=== PATIENT | male | born 1955 | race Caucasian/White ===

== ENCOUNTER → 2018-10-31 | Day surgery (SDC) | payer BC ==
[2018-10-15 11:33] LABS: BASOPHILS % 0.4 % (0.0-1.0); EOSINOPHILS # (AUTO) 0.2 (0.0-0.4); EOSINOPHILS % 2.6 % (0.0-6.0); HEMATOCRIT 42.6 % (38.2-49.6); HEMOGLOBIN 14.2 g/dL (14.0-18.0); LYMPHOCYTES # (AUTO) 1.3 (1.0-3.2); LYMPHOCYTES % 13.8 % (18.0-39.1); MEAN CORPUSCULAR HEMOGLOBIN 29.8 pg (28-32); MEAN CORPUSCULAR HGB CONC 33.3 g/dL (31-35); MEAN CORPUSCULAR VOLUME 89.5 fL (81-99); MONOCYTES # (AUTO) 0.9 (0.2-0.8); MONOCYTES % 9.7 % (4.4-11.3); NEUTROPHILS # (AUTO) 6.7 (2.1-6.9); PLATELET COUNT 237 x10e3/uL (140-360); RED BLOOD COUNT 4.76 x10e6/uL (4.3-5.7); RED CELL DISTRIBUTION WIDTH 12.5 % (11.7-14.4)
[2018-10-15 12:04] LABS: ANION GAP 15.3 mmol/L (8-16); BLOOD UREA NITROGEN 18 mg/dL (7-26); BUN/CREATININE RATIO 23 (6-25); CALCIUM 9.5 mg/dL (8.4-10.2); CARBON DIOXIDE 22 mmol/L (22-29); CHLORIDE 101 mmol/L (98-107); EST GLOMERULAR FILTRATION RATE > 60 ML/MIN (60-); GLUCOSE 96 mg/dL (74-118); POTASSIUM 4.3 mmol/L (3.5-5.1); SODIUM 134 mmol/L (136-145)
--- NOTE | 2018-10-15 12:25 | Diagnostic Imaging Report ---
EXAMINATION: CHEST 2 VIEWS INDICATION: Pre-operative COMPARISON: None FINDINGS: TUBES and LINES: Metallic surgical clips overlie the heart. LUNGS: The lungs are mildly hyperinflated. No focal consolidation or pulmonary edema. PLEURA: No pleural effusion or pneumothorax. HEART AND MEDIASTINUM: The cardiomediastinal silhouette is normal in size and contour. BONES AND SOFT TISSUES: No acute fracture or dislocation. Mild degenerative changes of the visualized spine. UPPER ABDOMEN: No free air under the diaphragm. IMPRESSION: No focal pneumonia or pulmonary edema. Signed by: Adonis Valero MD on 10/15/2018 12:22 PM
[~2018-10-31] MED LIST: ACETAMINOPHEN 1000 MG/100 ML IV ONE; ASPIR 8181 MG PO; ATORVASTATIN CA40 MG PO; BUPIVACAINE 0.25%/EPI 30ML SDV INJ ONE; CARVEDILOL12.5 MG PO; CLOPIDOGREL75 MG PO; DESFLURANE 240 ML BTL INH ONE; DEXAMETHASONE SOD PHOS INJ 4 MG/ML VIAL ONE; EPHEDRINE SULFATE INJ 50 MG/10 ML SYR ONE; ETOMIDATE 2 MG/ML 10 ML INJ IV ONE; FENTANYL CITRATE/PF 100MCG/2 ML INJ ONE; FUROSEMIDE40 MG PO; GLYCOPYRROLATE INJ 1MG/ 5 ML SYR ONE; HYDROMORPHONE 1MG/1ML INJ ONE; KETOROLAC TROMETHAMINE 30 MG/ML VIAL ONE; LEVOTHYROXINE112 MCG PO; LEVOTHYROXINE125 MCG PO; LIDOCAINE HCL 1% LOCAL INJ 20 ML VIAL ONE; LIDOCAINE HCL 2% LOCAL INJ 5 ML SDV VIAL INJ ONE; LISINOPRIL2.5 MG PO; MIDAZOLAM HCL 2 MG/2 ML VIAL ONE; NEOSTIGMINE 5 MG/5ML SYR ONE; ONDANSETRON HCL INJ 2MG/ML 2ML 2 MG/ML VIAL ONE; POTASSIUM CHLO10 ME1 PO; PROPOFOL IV EMULSION 10 MG/ML 20 ML VIAL ONE; ROCURONIUM BROMIDE 10 MG/ML 5ML VIAL ONE; SPIRONOLACTONE25 MG PO
--- OUTSIDE RECORDS SUMMARY | 2018-10-31 06:03 | XMS REPORT | Continuity of Care Document ---
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, HEART VALVE REPAIRED Active 06/05/2014 [facility] CHEST PAIN Active 05/18/2014 [facility] PLEURAL EFFUSION, CHF Active 05/18/2014 [facility] Chronic CHF Resolved Problem 11/08/2014 [facility] HTN (Confirmed) Resolved Problem 11/08/2014 [facility] Hyperlipidemia Resolved Problem 11/08/2014 [facility] Lymphoma Resolved Problem 11/08/2014 [facility] Final: 07/01/2014 [facility] PLEURAL EFFUSION NOS Active [facility] CHF NOS Active [facility] Medications Medication Details Route Status Patient Instructions Ordering Provider Order Date Source levothyroxine 125 mcg (0.125 mg) oral tablet 125 microgram=1 tab, PO, Daily, # 60 tab, 1 Refill(s) Active 06/29/2014 [facility] atorvastatin 40 mg oral tablet 40 mg=1 tab, PO, Bedtime, # 60 tab, 3 Refill(s) Active 06/29/2014 [facility] Aspirin 81 MG Enteric Coated Tablet 81 mg=1 tab, PO, Daily, # 120 tab, 2 Refill(s) Active 06/29/2014 [facility] lisinopril 2.5 mg oral tablet 2.5 mg=1 tab, PO, Q12H, # 60 tab, 0 Refill(s) Active 06/29/2014 [facility] Furosemide 40 MG Oral Tablet [Lasix] 40 mg=1 tab, PO, Daily, # 30 tab, 0 Refill(s) Active 06/29/2014 [facility] clopidogrel 75 mg oral tablet 75 mg=1 tab, PO, Daily, # 30 tab, 0 Refill(s) Active 06/29/2014 [facility] carvedilol 12.5 mg oral tablet 12.5 mg=1 tab, PO, Q12H, # 60 tab, 0 Refill(s) Active 06/29/2014 [facility] levothyroxine 125 mcg (0.125 mg) oral tablet 125 microgram=1 tab, PO, Daily, # 60 tab, 1 Refill(s) Inactive 06/29/2014 [facility] atorvastatin 40 mg oral tablet 40 mg=1 tab, PO, Bedtime, # 60 tab, 3 Refill(s) Inactive 06/29/2014 [facility] Aspirin 81 MG Enteric Coated Tablet 81 mg=1 tab, PO, Daily, # 120 tab, 2 Refill(s) Inactive 06/29/2014 [facility] Furosemide 40 MG Oral Tablet [Lasix] 40 mg=1 tab, PO, Daily, # 30 tab, 0 Refill(s) Inactive 06/29/2014 [facility] clopidogrel 75 mg oral tablet 75 mg=1 tab, PO, Daily, # 30 tab, 0 Refill(s) Inactive 06/29/2014 [facility] carvedilol 12.5 mg oral tablet 12.5 mg=1 tab, PO, Q12H, # 90 tab, 1 Refill(s) Inactive 06/29/2014 [facility] spironolactone 25 mg oral tablet 25 mg=1 tab, PO, Daily, # 30 tab, 0 Refill(s) Active 06/29/2014 [facility] lisinopril 2.5 mg oral tablet 2.5 mg=1 tab, PO, Q12H, # 60 tab, 0 Refill(s) Inactive 06/29/2014 [facility] Magnesium Sulfate 2 gm, 50 mL, Route: IVPB, Drug form: INJ, ONCE, Dosing Weight 104.091, kg, Total dose=2 gm, Start date: 06/29/14 6:36:00, Duration: 1 doses or times, Stop date: 06/29/14 6:36:00 Inactive 06/29/2014 [facility] Coreg 12.5 mg, 1 tab, Route: PO, Drug form: TAB, Q12H, Dosing Weight 104.091, kg, Start date: 06/27/14 21:00:00, Duration: 30 day, Stop date: 07/27/14 9:00:00Notes: Give with food. (Same As: Coreg) No Longer Active 06/28/2014 [facility] Lisinopril 2.5 mg, 1 tab, Route: PO, Drug form: TAB, Q12H, Dosing Weight 104.091, kg, Start date: 06/27/14 21:00:00, Duration: 30 day, Stop date: 07/27/14 9:00:00Notes: (Same as: Prinivil) No Longer Active 06/28/2014 [facility] Furosemide 40 MG Oral Tablet [Lasix] 40 mg, 1 tab, Route: PO, Drug form: TAB, Daily, Dosing Weight 104.091, kg, Start date: 06/27/14 9:00:00, Duration: 30 day, Stop date: 07/26/14 9:00:00Notes: (Same as: Lasix) May cause GI upset. Give with food or milk. No Longer Active 06/27/2014 [facility] Magnesium Sulfate 2 gm, Route: IVPB, Drug form: INJ, Q2H, Dosing Weight 104.091, kg, Total dose=4 gm, Start date: 06/27/14 6:00:00, Duration: 2 doses or times, Stop date: 06/27/14 8:00:00 Inactive 06/27/2014 [facility] Coreg 6.25 mg, 1 tab, Route: PO, Drug form: TAB, Q12H, Dosing Weight 104.091, kg, Start date: 06/26/14 9:47:00, Stop date: 07/26/14 9:00:00Notes: Give with food. (Same As: Coreg) No Longer Active 06/26/2014 [facility] Spironolactone 25 mg, 1 tab, Route: PO, Drug form: TAB, Daily, Dosing Weight 104.091, kg, Start date: 06/26/14 9:00:00, Duration: 30 day, Stop date: 07/25/14 9:00:00Notes: (Same As: Aldactone) No Longer Active 06/26/2014 [facility] Calcium Gluconate 500 MG Oral Tablet 500 mg, 1 tab, Route: PO, Drug form: TAB, ONCE, Dosing Weight 104.091, kg, Start date: 06/26/14 7:11:00, Stop date: 06/26/14 7:11:00 Inactive 06/26/2014 [facility] Magnesium Oxide 400 mg, 1 tab, Route: PO, Drug form: TAB, ONCE, Dosing Weight 104.091, kg, Start date: 06/26/14 6:34:00, Stop date: 06/26/14 6:34:00Notes: (Same as: Mag-Ox 400) Magnesium oxide [id number] elemental magnesium Dose=____mg magnesium oxide (___mg elemental magnesium) Inactive 06/26/2014 [facility] Potassium Chloride 20 MEQ Extended Release Tablet 20 mEq, 1 tab, Route: PO, Drug form: ERTAB, ONCE, Dosing Weight 104.091, kg, Start date: 06/26/14 6:34:00, Stop date: 06/26/14 6:34:00Notes: (Same as: K-Dur 20) "Do Not Crush" With food and full glass of water Inactive 06/26/2014 [facility] Lasix 40 mg, Route: PO, Drug form: TAB, BID, Dosing Weight 104.091, kg, Start date: 06/25/14 23:45:00, Duration: 30 day, Stop date: 07/25/14 17:00:00 No Longer Active 06/26/2014 [facility] Lisinopril 5 mg, Route: PO, Drug form: TAB, Daily, Dosing Weight 104.091, kg, Start date: 06/25/14 23:00:00, Duration: 30 day, Stop date: 07/25/14 9:00:00 Inactive 06/26/2014 [facility] Coreg 6.25 mg, 1 tab, Route: PO, Drug form: TAB, Q12H, Dosing Weight 104.091, kg, Start date: 06/25/14 21:00:00, Duration: 30 day, Stop date: 07/25/14 9:00:00Notes: Give with food. (Same As: Coreg) Inactive 06/26/2014 [facility] Lisinopril 5 mg, 1 tab, Route: PO, Drug form: TAB, Q12H, Dosing Weight 104.091, kg, Start date: 06/25/14 21:00:00, Duration: 30 day, Stop date: 07/25/14 9:00:00Notes: (Same as: Prinivil, Zestril) No Longer Active 06/26/2014 [facility] Furosemide 40 MG Oral Tablet [Lasix] 40 mg, 1 tab, Route: PO, Drug form: TAB, BID, Dosing Weight 104.091, kg, Start date: 06/25/14 17:00:00, Duration: 30 day, Stop date: 07/25/14 9:00:00Notes: (Same as: Lasix) May cause GI upset. Give with food or milk. No Longer Active 06/25/2014 [facility] Lisinopril 2.5 mg, 1 tab, Route: PO, Drug form: TAB, ONCE, Dosing Weight 104.091, kg, Start date: 06/25/14 14:35:00, Stop date: 06/25/14 14:35:00Notes: (Same as: Prinivil) Inactive 06/25/2014 [facility] Coreg 3.125 mg, 1 tab, Route: PO, Drug form: TAB, ONCE, Dosing Weight 104.091, kg, Start date: 06/25/14 13:54:00, Stop date: 06/25/14 13:54:00Notes: Give with food. (Same As: Coreg) Inactive 06/25/2014 [facility] Lisinopril 2.5 mg, 1 tab, Route: PO, Drug form: TAB, ONCE, Dosing Weight 104.091, kg, Start date: 06/25/14 13:11:00, Stop date: 06/25/14 13:11:00Notes: (Same as: Prinivil) Inactive 06/25/2014 [facility] pneumococcal capsular polysaccharide type 1 vaccine / pneumococcal capsular polysaccharide type 10A vaccine / pneumococcal capsular polysaccharide type 11A vaccine / pneumococcal capsular polysaccharide type 12F vaccine / pneumococcal capsular polysacchar 0.5 ml, Route: IM, Drug Form: INJ, Daily, Start date: 06/25/14 9:00:00, Duration: 1 doses or times, Stop date: 06/25/14 9:00:00Notes: (Same as: Pneumovax 23) Refrigerate Inactive 06/25/2014 [facility] Furosemide 40 mg, 4 mL, Route: IVP, Drug form: INJ, BID, Dosing Weight 104.091, kg, Start date: 06/25/14 9:00:00, Duration: 30 day, Stop date: 07/24/14 17:00:00Notes: (Same as: Lasix) Inactive 06/25/2014 [facility] clopidogrel 75 mg, 1 tab, Route: PO, Drug form: TAB, Daily, Dosing Weight 104.091, kg, Start date: 06/25/14 9:00:00, Duration: 30 day, Stop date: 07/24/14 9:00:00Notes: (Same As: Plavix) No Longer Active 06/25/2014 [facility] Aspirin 81 MG Enteric Coated Tablet 81 mg, 1 tab, Route: PO, Drug form: ECTAB, Daily, Dosing Weight 104.091, kg, Start date: 06/25/14 9:00:00, Duration: 30 day, Stop date: 07/24/14 9:00:00Notes: Do not crush or chew. (Same As: Ecotrin) No Longer Active 06/25/2014 [facility] Magnesium Oxide 400 mg, 1 tab, Route: PO, Drug form: TAB, ONCE, Dosing Weight 104.091, kg, Start date: 06/25/14 6:56:00, Stop date: 06/25/14 6:56:00Notes: (Same as: Mag-Ox 400) Magnesium oxide [id number] elemental magnesium Dose=____mg magnesium oxide (___mg elemental magnesium) Inactive 06/25/2014 [facility] Potassium Chloride 1.33 MEQ/ML Oral Solution 20 mEq, 15 mL, Route: PO, Drug form: LIQ, ONCE, Dosing Weight 104.091, kg, Start date: 06/25/14 6:56:00, Stop date: 06/25/14 6:56:00Notes: (Same as: Potassium Chloride) Inactive 06/25/2014 [facility] Thyroxine 125 microgram, 1 tab, Route: PO, Drug form: TAB, Q630AM, Dosing Weight 104.091, kg, Start date: 06/25/14 6:30:00, Duration: 30 day, Stop date: 07/24/14 6:30:00Notes: Take 1 hour before or 2 hours after meal; Enteral feeds may interefere with the absorption of this medication. (Same as:Levothroid) No Longer Active 06/25/2014 [facility] heparin 7,500 unit, 1.5 mL, Route: SUB-Q, Drug form: INJ, Q8H, Dosing Weight 104.091, kg, Start date: 06/25/14 0:00:00, Duration: 30 day, Stop date: 07/24/14 16:00:00Notes: porcine heparin No Longer Active 06/25/2014 [facility] atorvastatin 40 mg, 1 tab, Route: PO, Drug form: TAB, Bedtime, Dosing Weight 104.091, kg, Start date: 06/24/14 21:00:00, Duration: 30 day, Stop date: 07/23/14 21:00:00Notes: (Same as: Lipitor) No Longer Active 06/25/2014 [facility] carvedilol 3.125 mg, 1 tab, Route: PO, Drug form: TAB, Q12H, Dosing Weight 104.091, kg, Start date: 06/24/14 21:00:00, Duration: 30 day, Stop date: 07/24/14 9:00:00Notes: Give with food. (Same As: Coreg) No Longer Active 06/25/2014 [facility] metoprolol tartrate 12.5 mg, 1 tab, Route: PO, Drug form: TAB, Q12H, Dosing Weight 104.091, kg, Start date: 06/24/14 21:00:00, Duration: 30 day, Stop date: 07/24/14 9:00:00Notes: (Same as: Lopressor) 12.5mg=1/4 X 50 mg tab. Inactive 06/25/2014 [facility] Furosemide 20 MG Oral Tablet [Lasix] 20 mg=1 tab, PO, Daily, # 30 tab, 0 Refill(s) No Longer Active 06/25/2014 [facility] Nitroglycerin 0.4 mg, 1 tab, Route: SL, Drug form: TAB, Q5Min, Dosing Weight 104.091, kg, PRN Chest Pain, Start date: 06/24/14 19:04:00, Duration: 3 doses or times, Stop date: Limited # of timesNotes: (Same as:Nitroquick, Nitrostat) "Do Not Crush" Sublingual tablet No Longer Active 06/25/2014 [facility] 200 ACTUAT Albuterol 0.09 MG/ACTUAT Metered Dose Inhaler [ProAir HFA] 180 microgram, Route: INHALATION, Drug Form: AERO/A, Dosing Weight 104.091, kg, Q4H, PRN as needed for wheezing, Start date: 06/24/14 19:00:00, Duration: 30 day, Stop date: 07/24/14 18:59:00Notes: Albuterol 90 microgram/inh 8gm HFA Same as: Ventolin, Proventil No Longer Active 06/25/2014 [facility] carvedilol 3.125, PO, BID, 0 Refill(s) No Longer Active 06/24/2014 [facility] Amiodarone 400 mg, 2 tab, Route: PO, Drug form: TAB, BID, Dosing Weight 98.7, kg, Start date: 06/02/14 17:00:00, Duration: 30 day, Stop date: 07/02/14 9:00:00Notes: (Same as: Cordarone) Inactive 06/02/2014 [facility] AMIODarone 200 mg oral tablet 400 mg=2 tab, PO, BID, # 60 tab, 0 Refill(s) Active 06/02/2014 [facility] Potassium Chloride 10 MEQ Extended Release Tablet 10 mEq=1 tab, PO, Daily, # 30 tab, 0 Refill(s) Active 06/02/2014 [facility] clopidogrel 5 mg/ml cmpd oral suspension 75 mg=1 tab, PO, Daily, # 60 tab, 2 Refill(s) Active 06/02/2014 [facility] Calcium Carbonate 500 MG Chewable Tablet 500 mg=1 tab, PO, PRN, Abnormal Lab Result, # 60 tab, 0 Refill(s) Active 06/02/2014 [facility] atorvastatin 40 mg oral tablet 40 mg=1 tab, PO, Bedtime, # 60 tab, 3 Refill(s) Active 06/02/2014 [facility] Aspirin 81 MG Enteric Coated Tablet 81 mg=1 tab, PO, Daily, # 120 tab, 2 Refill(s) Active 06/02/2014 [facility] metoprolol tartrate 25 mg oral tablet 12.5 mg=0.5 tab, PO, BID, # 60 tab, 2 Refill(s) Active 06/02/2014 [facility] levothyroxine 125 mcg (0.125 mg) oral tablet 125 microgram=1 tab, PO, Daily, # 60 tab, 1 Refill(s) Active 06/02/2014 [facility] Amiodarone 150 mg, 3 mL, Route: IVPB, ONCE, Dosing Weight 98.7, kg, Start date: 06/02/14 12:01:00, Stop date: 06/02/14 12:01:00Notes: Central administration only for concentrations > 2 mg/ml. "Recommendation: Use an in-line filter during administration for continuous infusions to reduce the incidence of phlebitis" (Same as: Cordarone) Inactive 06/02/2014 [facility] Plavix 75 mg, 1 tab, Route: PO, Drug form: TAB, Daily, Dosing Weight 98.7, kg, Start date: 06/02/14 9:00:00, Duration: 30 day, Stop date: 07/01/14 9:00:00Notes: (Same As: Plavix) Inactive 06/02/2014 [facility] Lopressor 12.5 mg, 1 tab, Route: PO, Drug form: TAB, BID, Dosing Weight 98.7, kg, Start date: 06/01/14 9:00:00, Duration: 30 day, Stop date: 06/30/14 17:00:00Notes: (Same as: Lopressor) 12.5mg=1/4 X 50 mg tab. No Longer Active 06/01/2014 [facility] Calcium Gluconate 2,000 mg, 20 mL, Route: IVPB, ONCE, Dosing Weight 98.7, kg, Start date: 05/31/14 13:36:00, Stop date: 05/31/14 13:36:00 Inactive 05/31/2014 [facility] Calcium Chloride 0.0014 MEQ/ML / Potassium Chloride 0.004 MEQ/ML / Sodium Chloride 0.103 MEQ/ML / Sodium Lactate 0.028 MEQ/ML Injectable Solution 250 mL, 125 ml/hr, Infuse Over: 2 hr, Route: IV, 250, Drug form: SOLN, ONCE, Priority: STAT, Dosing Weight 98.7 kg, Start date: 05/30/14 5:23:00, Duration: 1 doses or times, Stop date: 05/30/14 5:23:00 Inactive 05/30/2014 [facility] Magnesium Sulfate 2 gm, 50 mL, Route: IVPB, Drug form: INJ, ONCE, Dosing Weight 98.7, kg, Start date: 05/29/14 9:10:00, Duration: 2 hr, Stop date: 05/29/14 9:10:00 Inactive 05/29/2014 [facility] lansoprazole 30 mg, 10 mL, Route: NG, Drug form: SUSP, Daily, Dosing Weight 98.7, kg, Start date: 05/29/14 9:00:00, Duration: 30 day, Stop date: 06/27/14 9:00:00Notes: Take 1 hour before or 2 hours after meal; Ex vipul in 14 days. Shake well before use. (Same as:Prevacid) Compounded Product - formulation not commercially available Inactive 05/29/2014 [facility] Vancomycin 1 gm, Route: IVPB, Drug form: INJ, [id number], Dosing Weight 98.7, kg, Start date: 05/29/14 8:00:00, Duration: 30 day, Stop date: 06/27/14 20:00:00 Inactive 05/29/2014 [facility] cefepime 1 gm, Route: IVPB, Drug form: INJ, [id number], Dosing Weight 98.7, kg, (CrCl 10 - 29 ml/min), Start date: 05/29/14 8:00:00, Duration: 30 day, Stop date: 06/28/14 0:00:00Notes: (Same As: Maxipime) No Longer Active 05/29/2014 [facility] Dopamine 800 mg, 250 mL, Rate: Titrate, Dosing Weight 98.7, kg, Route: IV, Total Volume: 250 mL, Start date: 05/29/14 4:30:00, Duration: 30 day, Stop date: 06/28/14 4:29:00, Replace Every: 24 hrNotes: (Same as: Intropin) Administer by either central venous catheter or peripherally-inserted central catheter (PICC) line. Final conc=3.2 mg/ml. Premix solution. No Longer Active 05/29/2014 [facility] Acetaminophen 325 MG / Hydrocodone Bitartrate 5 MG Oral Tablet [[place] 5/325] 1 tab, Route: PO, Drug Form: TAB, Dosing Weight 98.7, kg, ONCE, Start date: 05/29/14 2:54:00, Stop date: 05/29/14 2:54:00Notes: (Same as: [place] 325/5) Do not exceed 4gm/day of acetaminophen. Inactive 05/29/2014 [facility] Docusate 100 mg, 1 cap, Route: PO, Drug form: CAP, Q12H, Dosing Weight 98.7, kg, Start date: 05/28/14 21:00:00, Duration: 30 day, Stop date: 06/27/14 9:00:00Notes: (Same as: Colace) (Do Not Crush) No Longer Active 05/29/2014 [facility] chlorhexidine gluconate 1.2 MG/ML Mouthwash 15 ml, Route: S&SPIT, Q12H, Drug form: LIQ, Start date: 05/28/14 21:00:00, Duration: 30 day, Stop date: 06/27/14 9:00:00Notes: (Same As: Peridex) No Longer Active 05/29/2014 [facility] Fentanyl 1,000 microgram, 20 mL, Rate: Titrate as directed, Dosing Weight 98.7, kg, Route: IV, Total Volume: 20 mL, Start Date: 05/28/14 12:49:00, Duration: 30 day, Stop date: 06/27/14 12:48:00, Replace Every: 24 hr No Longer Active 05/28/2014 [facility] Bisacodyl 10 mg, 1 supp, Route: LA, Drug form: SUPP, Q24H, Dosing Weight 98.7, kg, PRN Constipation, Start date: 05/28/14 10:24:00, Duration: 30 day, Stop date: 06/27/14 10:23:00Notes: (Same As: Dulcolax, Bisco- Lax) No Longer Active 05/28/2014 [facility] LR IV 1,000 mL 1,000 mL, Rate: 75 ml/hr, Infuse over: 13.3 hr, Route: IV, Dosing Weight 98.7 kg, Total Volume: 1,000, Start date: 05/28/14 8:00:00, Duration: 6 hr, Stop date: 05/28/14 13:59:00 Inactive 05/28/2014 [facility] Melatonin 3 mg, 1 tab, Route: PO, Drug form: TAB, Bedtime, Dosing Weight 98.7, kg, PRN Sleep, Start date: 05/27/14 18:37:00, Duration: 30 day, Stop date: 06/26/14 18:36:00Notes: (Same as: Melatonin) No Longer Active 05/28/2014 [facility] Dobutamine 1,000 mg, 250 mL, Rate: Titrate, Dosing Weight 98.7, kg, Route: IV, Total Volume: 250, Please keep at low dose if possible., Start date: 05/26/14 14:16:00, Duration: 30 day, Stop date: 06/25/14 14:15:00, Replace Every: 24 hrNotes: (Same as: Dobutrex) Final conc=4 mg/ml. Premix solution. Protect from light. No Longer Active 05/26/2014 [facility] Docusate Sodium 100 MG Oral Capsule 100 mg, 1 cap, Route: PO, Drug form: CAP, Q12H, Dosing Weight 98.7, kg, Start date: 05/26/14 9:00:00, Duration: 30 day, Stop date: 06/24/14 21:00:00Notes: (Same as: Colace) (Do Not Crush) No Longer Active 05/26/2014 [facility] Docusate Sodium 50 MG Oral Capsule [Colace] 50 mg, 1 cap, Route: PO, Drug form: CAP, Daily, Dosing Weight 98.7, kg, Start date: 05/26/14 9:00:00, Duration: 30 day, Stop date: 06/24/14 9:00:00Notes: (Same as: Colace) (Do Not Crush) Inactive 05/26/2014 [facility] Losartan 12.5 mg, 0.5 tab, Route: PO, Drug form: TAB, Q12H, Dosing Weight 98.7, kg, Start date: 05/25/14 21:00:00, Duration: 30 day, Stop date: 06/24/14 9:00:00Notes: (Same as: Cozaar) No Longer Active 05/26/2014 [facility] Dulcolax Laxative 5 mg, 1 tab, Route: PO, Drug form: ECTAB, Q6H, Dosing Weight 98.7, kg, PRN Constipation, Start date: 05/25/14 14:18:00, Duration: 30 day, Stop date: 06/24/14 14:17:00Notes: (Same As: Dulcolax, Correc chalino) (Do Not Crush) "Do Not Crush" No Longer Active 05/25/2014 [facility] Lasix 40 mg, 4 mL, Route: IVP, Drug form: INJ, ONCE, Dosing Weight 98.7, kg, Start date: 05/25/14 7:27:00, Stop date: 05/25/14 7:27:00Notes: (Same as: Lasix) Inactive 05/25/2014 [facility] Losartan 12.5 mg, 0.5 tab, Route: PO, Drug form: TAB, Daily, Dosing Weight 98.7, kg, Start date: 05/24/14 9:00:00, Duration: 30 day, Stop date: 06/22/14 9:00:00Notes: (Same as: Garyzaar) No Longer Active 05/24/2014 [facility] Potassium Chloride 20 MEQ Extended Release Tablet 20 mEq, 1 tab, Route: PO, Drug form: ERTAB, ONCE, Dosing Weight 98.7, kg, Start date: 05/24/14 3:07:00, Stop date: 05/24/14 3:07:00Notes: (Same as: K-Dur 20) "Do Not Crush" With food and full glass of water Inactive 05/24/2014 [facility] Potassium Chloride 20 mEq, 1 tab, Route: PO, Drug form: ERTAB, PRN, Dosing Weight 98.7, kg, PRN Abnormal Lab Result, Start date: 05/23/14 11:30:00, Duration: 30 day, Stop date: 06/22/14 12:29:00, FOR ICU USE ONLYSpecial Instructions: FOR ICU USE ONLYNotes: (Same as: K-Dur 20) "Do Not Crush" With food and full glass of water No Longer Active 05/23/2014 [facility] Sodium Phosphate, Monobasic 15 mmol, 5 mL, Route: IVPB, PRN, Dosing Weight 98.7, kg, PRN Abnormal Lab Result, Start date: 05/23/14 11:30:00, Duration: 30 day, Stop date: 06/22/14 12:29:00, FOR ICU USE ONLYSpecial Instructions: FOR ICU USE ONLY No Longer Active 05/23/2014 [facility] Magnesium Oxide 800 mg, 2 tab, Route: PO, Drug form: TAB, PRN, Dosing Weight 98.7, kg, PRN Abnormal Lab Result, FOR ICU USE ONLY, Start date: 05/23/14 11:30:00, Duration: 30 day, Stop date: 06/22/14 12:29:00Notes: ( Same as: Mag-Ox 400) Magnesium oxide [id number] elemental magnesium Dose=____mg magnesium oxide (___mg elemental magnesium) No Longer Active 05/23/2014 [facility] Calcium Gluconate 1 gm, 10 mL, Route: IVPB, PRN, Dosing Weight 98.7, kg, PRN Abnormal Lab Result, Start date: 05/23/14 11:30:00, Duration: 30 day, Stop date: 06/22/14 12:29:00, FOR ICU USE ONLYSpecial Instructions: FOR ICU USE ONLY No Longer Active 05/23/2014 [facility] Calcium Carbonate 500 MG Chewable Tablet 500 mg, 1 tab, Route: PO, Drug form: CHEWTAB, PRN, Dosing Weight 98.7, kg, PRN Abnormal Lab Result, FOR ICU USE ONLY, Start date: 05/23/14 11:30:00, Duration: 30 day, Stop date: 06/22/14 12:29:00Notes: (Same As: Tums) Calcium Carbonate 500 hd=684 mg elemental calcium Dose= mg calcium carbonate ( mg elemental calcium) No Longer Active 05/23/2014 [facility] Neutra-Phos 2 pkt, Route: PO, Drug Form: PDR/REC, Dosing Weight 98.7, kg, PRN, PRN Abnormal Lab Result, FOR ICU USE ONLY, Start date: 05/23/14 11:30:00, Duration: 30 day, Stop date: 06/22/14 12:29:00Notes: (Same as : Neutra-Phos) Each 1.25 gm pkt has 250mg phosphorous. Mix w/2.5oz water and stir. No Longer Active 05/23/2014 [facility] Magnesium Sulfate 2 gm, 50 mL, Route: IVPB, Drug form: INJ, PRN, Dosing Weight 98.7, kg, PRN Abnormal Lab Result, Start date: 05/23/14 11:30:00, Duration: 30 day, Stop date: 06/22/14 12:29:00, FOR ICU USE ONLYSpecial Instructions: FOR ICU USE ONLY No Longer Active 05/23/2014 [facility] Phosphorus / Potassium 15 mmol, 5 mL, Route: IVPB, PRN, Dosing Weight 98.7, kg, PRN Abnormal Lab Result, Start date: 05/23/14 11:30:00, Duration: 30 day, Stop date: 06/22/14 12:29:00, FOR ICU USE ONLYSpecial Instructions: FOR ICU USE ONLYNotes: (Same as: K Phosphate.) 1 mMol phoshate has 1.47 mEq potassium Infuse over 4 hours No Longer Active 05/23/2014 [facility] Acetaminophen 325 MG / Hydrocodone Bitartrate 5 MG Oral Tablet [[place] 5/325] 1 tab, Route: PO, Drug Form: TAB, Dosing Weight 98.7, kg, Q6H, PRN Pain Score 1-3, Start date: 05/23/14 7:55:00, Duration: 30 day, Stop date: 06/22/14 7:54:00Notes: (Same as: [place] 325/5) Do not exceed 4gm/day of acetaminophen. No Longer Active 05/23/2014 [facility] Calcium Gluconate 2,000 mg, 20 mL, Route: IVPB, Drug form: INJ, Q2H, Dosing Weight 100.909, kg, Total dqyh=1501 mg, Start date: 05/23/14 4:00:00, Duration: 2 doses or times, Stop date: 05/23/14 6:00:00 Inactive 05/23/2014 [facility] Potassium Chloride 20 mEq, 100 mL, Route: IVPB, Drug form: INJ, Q2H, Dosing Weight 100.909, kg, Total dose=40 mEq, Start date: 05/23/14 4:00:00, Duration: 2 doses or times, Stop date: 05/23/14 6:00:00Notes: (Same as: KCL) Infuse no faster than 10 mEq/hr if given peripherally. Inactive 05/23/2014 [facility] Potassium Chloride 20 mEq, 100 mL, Route: IVPB, Drug form: INJ, Q2H, Dosing Weight 100.909, kg, Total dose=40 mEq, Start date: 05/22/14 22:00:00, Duration: 2 doses or times, Stop date: 05/23/14 0:00:00Notes: (Same as: KCL) Infuse no faster than 10 mEq/hr if given peripherally. No Longer Active 05/23/2014 [facility] Calcium Gluconate 2,000 mg, 20 mL, Route: IVPB, ONCE, Dosing Weight 100.909, kg, Start date: 05/22/14 20:10:00, Stop date: 05/22/14 20:10:00 Inactive 05/23/2014 [facility] Magnesium Sulfate 2 gm, 50 mL, Route: IVPB, Drug form: INJ, ONCE, Dosing Weight 100.909, kg, Start date: 05/22/14 20:09:00, Duration: 2 hr, Stop date: 05/22/14 20:09:00 Inactive 05/23/2014 [facility] Furosemide 100 mg, 10 mL, Rate: 2.5 mg/hour, Dosing Weight 100.909, kg, Route: IV, Total Volume: 100, Start Date: 05/22/14 18:36:00, Duration: 30 day, Stop date: 06/21/14 18:35:00, Replace Every: 24 hr, continuous Special Instructions: continuousNotes: (Same as: Lasix) No Longer Active 05/23/2014 [facility] Midazolam 1 mg, 1 mL, Route: IV, Drug form: INJ, ONCE, Dosing Weight 100.909, kg, Start date: 05/22/14 15:39:00, Stop date: 05/22/14 15:39:00Notes: (Same as: Versed) Inactive 05/22/2014 [facility] Dobutamine 1,000 mg, 250 mL, Rate: Titrate, Dosing Weight 100.909, kg, Route: IV, Total Volume: 250, Start date: 05/22/14 14:59:00, Duration: 30 day, Stop date: 06/21/14 14:58:00, Replace Every: 24 hrNotes: (Same as: Dobutrex) Final conc=4 mg/ml. Premix solution. Protect from light. No Longer Active 05/22/2014 [facility] Zofran 4 mg, 2 mL, Route: IV, Drug form: INJ, Q8H, Dosing Weight 100.909, kg, PRN Nausea, Start date: 05/22/14 13:43:00, Duration: 30 day, Stop date: 06/21/14 13:42:00Notes: (Same as: Zofran) No Longer Active 05/22/2014 [facility] Lasix 40 mg, 4 mL, Route: IV, Drug form: INJ, ONCE, Dosing Weight 100.909, kg, Priority: STAT, Start date: 05/22/14 12:08:00, Stop date: 05/22/14 12:08:00Notes: (Same as: Lasix) Inactive 05/22/2014 [facility] Calcium Gluconate 1,000 mg, 10 mL, Route: IVPB, ONCE, Dosing Weight 100.909, kg, Start date: 05/22/14 11:37:00, Stop date: 05/22/14 11:37:00 Inactive 05/22/2014 [facility] Lasix 20 mg, 2 mL, Route: IV, Drug form: INJ, ONCE, Dosing Weight 100.909, kg, Start date: 05/22/14 7:16:00, Stop date: 05/22/14 7:16:00Notes: (Same as: Lasix) Inactive 05/22/2014 [facility] metoprolol tartrate 12.5 mg, 1 tab, Route: PO, Drug form: TAB, ONCE, Dosing Weight 100.909, kg, Start date: 05/22/14 7:16:00, Stop date: 05/22/14 7:16:00Notes: (Same as: Lopressor) 12.5mg=1/4 X 50 mg tab. Inactive 05/22/2014 [facility] Lasix 20 mg, 2 mL, Route: IV, Drug form: INJ, ONCE, Dosing Weight 100.909, kg, Start date: 05/21/14 22:42:00, Stop date: 05/21/14 22:42:00Notes: (Same as: Lasix) Inactive 05/22/2014 [facility] Ativan 1 mg, 0.5 mL, Route: IVP, Drug form: INJ, ONCE, Dosing Weight 100.909, kg, PRN Anxiety, Start date: 05/21/14 11:06:00Notes: (Same as: Ativan) No Longer Active 05/21/2014 [facility] Lasix 20 mg, 2 mL, Route: IV, Drug form: INJ, ONCE, Dosing Weight 100.909, kg, Start date: 05/21/14 7:16:00, Stop date: 05/21/14 7:16:00Notes: (Same as: Lasix) Inactive 05/21/2014 [facility] Lasix 40 mg, Route: IV, ONCE, Dosing Weight 100.909, kg, Start date: 05/21/14 7:14:00, Stop date: 05/21/14 7:14:00 Inactive 05/21/2014 [facility] Ativan 0.5 mg, 0.25 mL, Route: IVP, Drug form: INJ, ONCE, Dosing Weight 100.909, kg, Start date: 05/21/14 1:50:00, Stop date: 05/21/14 1:50:00Notes: (Same as: Ativan) Inactive 05/21/2014 [facility] Magnesium Sulfate 3 gm, 6 mL, Route: IVPB, Drug form: INJ, ONCE, Dosing Weight 100.909, kg, Start date: 05/20/14 21:57:00, Duration: 2 hr, Stop date: 05/20/14 21:57:00Notes: (Same as: MgSO4) Inactive 05/21/2014 [facility] atorvastatin 40 mg, 1 tab, Route: PO, Drug form: TAB, Bedtime, Dosing Weight 100.909, kg, Start date: 05/20/14 21:00:00, Duration: 30 day, Stop date: 06/18/14 21:00:00Notes: (Same as: Lipitor) No Longer Active 05/21/2014 [facility] Miralax 17 gm, 1 pkt, Route: PO, Drug form: PWDR, Daily, Dosing Weight 100.909, kg, Start date: 05/20/14 9:00:00, Duration: 30 day, Stop date: 06/18/14 9:00:00Notes: Dissolve in 8 oz of water or juice. (Same as: Miralax) No Longer Active 05/20/2014 [facility] Thyroxine 125 microgram, 1 tab, Route: PO, Drug form: TAB, Daily, Dosing Weight 100.909, kg, Start date: 05/20/14 9:00:00, Duration: 30 day, Stop date: 06/18/14 9:00:00Notes: Take 1 hour before or 2 hours after meal; Enteral feeds may interefere with the absorption of this medication. (Same as:Levothroid) No Longer Active 05/20/2014 [facility] Restoril 15 mg, 1 cap, Route: PO, Drug form: CAP, Bedtime, Dosing Weight 100.909, kg, PRN Sleep, Start date: 05/20/14 0:49:00, Duration: 30 day, Stop date: 06/19/14 0:48:00Notes: (Same As: Restoril) No Longer Active 05/20/2014 [facility] Docusate Sodium 100 MG Oral Capsule [Colace] 100 mg, 1 cap, Route: PO, Drug form: CAP, BID, Dosing Weight 100.909, kg, PRN Constipation, Start date: 05/19/14 20:20:00, Duration: 30 day, Stop date: 06/18/14 20:19:00Notes: (Same as: Colace) (Do Not Crush) Inactive 05/20/2014 [facility] Simethicone 80 mg, 1 tab, Route: PO, Drug form: CHEWTAB, Q6H, Dosing Weight 100.909, kg, PRN Gas, Start date: 05/19/14 20:20:00, Duration: 30 day, Stop date: 06/18/14 20:19:00Notes: (Same as: Mylicon) Inactive 05/20/2014 [facility] Lovenox 40 mg, Route: SUB-Q, Drug form: INJ, [id number], Dosing Weight 100.909, kg, Start date: 05/19/14 16:00:00, Duration: 30 day, Stop date: 06/18/14 4:00:00 Inactive 05/19/2014 [facility] metoprolol extended release 12.5 mg, 0.5 tab, Route: PO, Drug form: TAB, Daily, Start date: 05/19/14 15:12:00, Stop date: 06/18/14 9:00:00Notes: (Same as: Lopressor) No Longer Active 05/19/2014 [facility] Furosemide 100 mg, 10 mL, Rate: 2.5mg/hr, Dosing Weight 100.909, kg, Route: IV, Total Volume: 100, Priority: NOW, Start Date: 05/19/14 14:39:00, Duration: 30 day, Stop date: 06/18/14 14:38:00, Replace Every: 24 hrNotes: (Same as: Lasix) No Longer Active 05/19/2014 [facility] levothyroxine 125 mcg (0.125 mg) oral tablet 125 microgram=1 tab, PO, Daily, # 30 tab, 0 Refill(s) No Longer Active 05/19/2014 [facility] Potassium Chloride 40 mEq, 2 tab, Route: PO, Drug form: ERTAB, ONCE, Dosing Weight 100.909, kg, Start date: 05/19/14 14:12:00, Stop date: 05/19/14 14:12:00Notes: (Same as: K-Dur 20) "Do Not Crush" With food and full glass of water Inactive 05/19/2014 [facility] 200 ACTUAT Albuterol 0.09 MG/ACTUAT Metered Dose Inhaler [ProAir HFA] 2 puff, INHALATION, Q4H, for wheezing, # 9 gm, 0 Refill(s) Active 05/19/2014 [facility] Potassium Chloride 10 MEQ Extended Release Tablet 10 mEq=1 tab, PO, Daily, # 10 tab, 0 Refill(s) No Longer Active 05/19/2014 [facility] Furosemide 20 MG Oral Tablet 20 mg=1 tab, PO, Daily, # 30 tab, 0 Refill(s) No Longer Active 05/19/2014 [facility] levothyroxine 112 mcg (0.112 mg) oral tablet 112 microgram=1 tab, PO, Daily, # 30 tab, 0 Refill(s) Inactive 05/19/2014 [facility] losartan 50 mg oral tablet 50 mg=1 tab, PO, Daily, # 30 tab, 0 Refill(s) No Longer Active 05/19/2014 [facility] 120 ACTUAT Fluticasone propionate 0.05 MG/ACTUAT Nasal Inhaler [Flonase] 1 spray, NASAL, Daily, in each nostril, # 16 gm, 0 Refill(s)Special Instructions: in each nostril Active 05/19/2014 [facility] amLODIPine 10 mg oral tablet 10 mg=1 tab, PO, Daily, # 30 tab, 0 Refill(s) No Longer Active 05/19/2014 [facility] Losartan 12.5 mg, 0.5 tab, Route: PO, Drug form: TAB, Daily, Dosing Weight 100, kg, Start date: 05/19/14 9:00:00, Stop date: 06/17/14 9:00:00Notes: (Same as: Cozaar) No Longer Active 05/19/2014 [facility] Aspirin 81 MG Enteric Coated Tablet 81 mg, 1 tab, Route: PO, Drug form: ECTAB, Daily, Dosing Weight 100, kg, Start date: 05/19/14 9:00:00, Duration: 30 day, Stop date: 06/17/14 9:00:00Notes: Do not crush or chew. (Same As: Ecotrin) No Longer Active 05/19/2014 [facility] Thyroxine 125 microgram, 1 tab, Route: PO, Drug form: TAB, Q630AM, Dosing Weight 100, kg, Start date: 05/19/14 6:30:00, Duration: 30 day, Stop date: 06/17/14 6:30:00Notes: Take 1 hour before or 2 hours after meal; Enteral feeds may interefere with the absorption of this medication. (Same as:Levothroid) Inactive 05/19/2014 [facility] Potassium Chloride 20 MEQ Extended Release Tablet 40 mEq, 2 tab, Route: PO, Drug form: ERTAB, ONCE, Dosing Weight 100.909, kg, Start date: 05/19/14 6:16:00, Stop date: 05/19/14 6:16:00Notes: (Same as: K-Dur 20) "Do Not Crush" With food and full glass of water Inactive 05/19/2014 [facility] Saline Flush 0.9% 10 ml, Route: IVP, Drug Form: INJ, Dosing Weight 100, kg, Q12H, Start date: 05/18/14 21:00:00, Duration: 30 day, Stop date: 06/17/14 9:00:00Notes: (Same as: BD Posiflush) No Longer Active 05/19/2014 [facility] Saline Flush 0.9% 10 ml, Route: IVP, Drug Form: INJ, Dosing Weight 100, kg, PRN, PRN Line Flush, Start date: 05/18/14 20:53:00, Duration: 30 day, Stop date: 06/17/14 21:52:00 Inactive 05/19/2014 [facility] Furosemide 40 mg, 4 mL, Route: IVP, Drug form: INJ, Q12H, Dosing Weight 100, kg, Priority: STAT, Start date: 05/18/14 20:53:00, Duration: 30 day, Stop date: 06/17/14 9:00:00Notes: (Same as: Lasix) No Longer Active 05/19/2014 [facility] GI cocktail 30 mL, Route: PO, Dosing Weight 100, kg, ONCE, STAT, Start date: 05/18/14 19:24:00, Stop date: 05/18/14 19:24:00 Inactive 05/19/2014 [facility] Lasix 60 mg, 6 mL, Route: IVP, Drug form: INJ, ONCE, Dosing Weight 100, kg, Priority: STAT, Start date: 05/18/14 18:37:00, Stop date: 05/18/14 18:37:00Notes: (Same as: Lasix) Inactive 05/19/2014 [facility] Saline Flush 0.9% 10 mL, Route: IVP, Drug Form: INJ, Dosing Weight 100, kg, PRN, PRN Line Flush, Start date: 05/18/14 17:10:00, Duration: 30 day, Stop date: 06/17/14 18:09:00Notes: (Same as: BD Posiflush) No Longer Active 05/18/2014 [facility] Allergies, Adverse Reactions, Alerts No Known Medication Allergies Immunizations Immunization Date Given Site Status Last Updated Comments Source pneumococcal 23-valent vaccine 06/26/2014 Not Given Benzaia [facility] Results Order Name Results Value Reference Range Date Interpretation Comments Source CHEM PANEL Magnesium Lvl 1.9 1.8 - 2.4 06/29/2014 [facility] CHEM PANEL Phosphorus 3.8 2.5 - 4.5 06/29/2014 [facility] ELECTROLYTES AGAP 11.8 10.0 - 20.0 06/29/2014 [facility] ELECTROLYTES eGFR 81 06/29/2014 <sup>1</sup>Result Comment: The eGFR is calculated using the CKD-EPI formula. In most young, healthy individuals the eGFR will be >90 mL/min/1.73m2. The eGFR declines with age. An eGFR of 60-89 may be normal in some populations, particularly the elderly, for whom the CKD-EPI formula has not been extensively validated. Use of the eGFR is not recommended in the following populations:& lt;br/>
Individuals with unstable creatinine concentrations, including patients and those with serious co-morbid conditions.

Patients with extremes in muscle mass or diet.

The data above are obtained from the National Kidney Disease Education Program (NKDEP) which additionally recommends that when the eGFR is used in patients with extremes of body mass index for purposes of drug dosing, the eGFR should be multiplied by the estimated BMI. [facility] ELECTROLYTES Creatinine Lvl 1.0 0.5 - 1.4 06/29/2014 [facility] ELECTROLYTES Glucose Lvl 77 70 - 99 06/29/2014 <sup>4</sup>Interpretive Data: Adult reference range values reflect the clinical guidelines
of the [place] [employer]. [facility] ELECTROLYTES Sodium Lvl 135 135 - 145 06/29/2014 [facility] ELECTROLYTES Potassium Lvl 4.8 3.5 - 5.1 06/29/2014 [facility] ELECTROLYTES BUN 17 7 - 22 06/29/2014 [facility] ELECTROLYTES Calcium Lvl 9.0 8.5 - 10.5 06/29/2014 [facility] ELECTROLYTES Chloride Lvl 104 95 - 109 06/29/2014 [facility] ELECTROLYTES CO2 24 24 - 32 06/29/2014 [facility] HEMATOLOGY Platelet 208 133 - 450 06/29/2014 [facility] HEMATOLOGY RDW 15.0 11.5 - 14.5 06/29/2014 [facility] HEMATOLOGY WBC 5.2 3.7 - 10.4 06/29/2014 [facility] HEMATOLOGY Hgb 13.4 14.0 - 18.0 06/29/2014 [facility] HEMATOLOGY RBC 4.85 4.70 - 6.10 06/29/2014 [facility] HEMATOLOGY MCV 86.0 80.0 - 94.0 06/29/2014 [facility] HEMATOLOGY Hct 41.7 42.0 - 54.0 06/29/2014 [facility] HEMATOLOGY MPV 7.6 7.4 - 10.4 06/29/2014 [facility] HEMATOLOGY MCHC 32.2 32.0 - 36.0 06/29/2014 [facility] HEMATOLOGY MCH 27.7 27.0 - 31.0 06/29/2014 [facility] HEMATOLOGY Lymphocytes # 1.0 1.0 - 5.5 06/29/2014 [facility] HEMATOLOGY Segs-Bands # 3.3 1.5 - 8.1 06/29/2014 [facility] HEMATOLOGY Monocytes # 0.6 0.0 - 0.8 06/29/2014 [facility] HEMATOLOGY Basophils # 0.1 0.0 - 0.2 06/29/2014 [facility] HEMATOLOGY Eosinophils # 0.1 0.0 - 0.5 06/29/2014 [facility] HEMATOLOGY Basophils 1.3 0.0 - 1.0 06/29/2014 [facility] HEMATOLOGY Eosinophils 2.7 0.0 - 4.0 06/29/2014 [facility] HEMATOLOGY Segs 64.5 45.0 - 75.0 06/29/2014 [facility] HEMATOLOGY Monocytes 12.5 2.0 - 12.0 06/29/2014 [facility] HEMATOLOGY Lymphocytes 19.0 20.0 - 40.0 06/29/2014 [facility] PARATHYROID PROFILE Ca Norm WB 1.07 1.05 - 1.25 06/29/2014 [facility] PARATHYROID PROFILE Ca Ion WB 1.06 1.05 - 1.25 06/29/2014 [facility] CHEM PANEL Phosphorus 4.1 2.5 - 4.5 06/28/2014 [facility] CHEM PANEL Magnesium Lvl 2.0 1.8 - 2.4 06/28/2014 [facility] CHEM PANEL eGFR 92 06/28/2014 <sup>2</sup>Result Comment: The eGFR is calculated using the CKD-EPI formula. In most young, healthy individuals the eGFR will be >90 mL/min/1.73m2. The eGFR declines with age. An eGFR of 60-89 may be normal in some populations, particularly the elderly, for whom the CKD-EPI formula has not been extensively validated. Use of the eGFR is not recommended in the following populations:& lt;br/>
Individuals with unstable creatinine concentrations, including patients and those with serious co-morbid conditions.

Patients with extremes in muscle mass or diet.

The data above are obtained from the National Kidney Disease Education Program (NKDEP) which additionally recommends that when the eGFR is used in patients with extremes of body mass index for purposes of drug dosing, the eGFR should be multiplied by the estimated BMI. [facility] CHEM PANEL Creatinine Lvl 0.9 0.5 - 1.4 06/28/2014 [facility] CHEM PANEL Glucose Lvl 79 70 - 99 06/28/2014 <sup>5</sup>Interpretive Data: Adult reference range values reflect the clinical guidelines
of the [place] [employer]. [facility] CHEM PANEL AGAP 13.4 10.0 - 20.0 06/28/2014 [facility] CHEM PANEL BUN 17 7 - 22 06/28/2014 [facility] CHEM PANEL Calcium Lvl 8.7 8.5 - 10.5 06/28/2014 [facility] CHEM PANEL Chloride Lvl 105 95 - 109 06/28/2014 [facility] CHEM PANEL CO2 25 24 - 32 06/28/2014 [facility] CHEM PANEL Sodium Lvl 139 135 - 145 06/28/2014 [facility] CHEM PANEL Potassium Lvl 4.4 3.5 - 5.1 06/28/2014 [facility] HEMATOLOGY Lymphocytes 20.3 20.0 - 40.0 06/28/2014 [facility] HEMATOLOGY Lymphocytes # 1.0 1.0 - 5.5 06/28/2014 [facility] HEMATOLOGY Segs-Bands # 3.0 1.5 - 8.1 06/28/2014 [facility] HEMATOLOGY Basophils 0.9 0.0 - 1.0 06/28/2014 [facility] HEMATOLOGY Eosinophils 2.9 0.0 - 4.0 06/28/2014 [facility] HEMATOLOGY Monocytes 12.7 2.0 - 12.0 06/28/2014 [facility] HEMATOLOGY Eosinophils # 0.1 0.0 - 0.5 06/28/2014 [facility] HEMATOLOGY Monocytes # 0.6 0.0 - 0.8 06/28/2014 [facility] HEMATOLOGY Segs 63.2 45.0 - 75.0 06/28/2014 [facility] HEMATOLOGY Hgb 13.0 14.0 - 18.0 06/28/2014 [facility] HEMATOLOGY RBC 4.54 4.70 - 6.10 06/28/2014 [facility] HEMATOLOGY WBC 4.8 3.7 - 10.4 06/28/2014 [facility] HEMATOLOGY MPV 7.4 7.4 - 10.4 06/28/2014 [facility] HEMATOLOGY Platelet 198 133 - 450 06/28/2014 [facility] HEMATOLOGY RDW 14.5 11.5 - 14.5 06/28/2014 [facility] HEMATOLOGY MCHC 33.5 32.0 - 36.0 06/28/2014 [facility] HEMATOLOGY MCH 28.6 27.0 - 31.0 06/28/2014 [facility] HEMATOLOGY MCV 85.4 80.0 - 94.0 06/28/2014 [facility] HEMATOLOGY Hct 38.8 42.0 - 54.0 06/28/2014 [facility] CARDIAC ENZYMES Troponin-I 0.02 0.00 - 0.40 06/27/2014 [facility] CHEM PANEL Phosphorus 4.0 2.5 - 4.5 06/27/2014 [facility] CHEM PANEL Magnesium Lvl 2.0 1.8 - 2.4 06/27/2014 [facility] ELECTROLYTES AGAP 16.1 10.0 - 20.0 06/27/2014 [facility] ELECTROLYTES eGFR 92 06/27/2014 <sup>3</sup>Result Comment: The eGFR is calculated using the CKD-EPI formula. In most young, healthy individuals the eGFR will be >90 mL/min/1.73m2. The eGFR declines with age. An eGFR of 60-89 may be normal in some populations, particularly the elderly, for whom the CKD-EPI formula has not been extensively validated. Use of the eGFR is not recommended in the following populations:& lt;br/>
Individuals with unstable creatinine concentrations, including patients and those with serious co-morbid conditions.

Patients with extremes in muscle mass or diet.

The data above are obtained from the National Kidney Disease Education Program (NKDEP) which additionally recommends that when the eGFR is used in patients with extremes of body mass index for purposes of drug dosing, the eGFR should be multiplied by the estimated BMI. [facility] ELECTROLYTES Glucose Lvl 97 70 - 99 06/27/2014 <sup>6</sup>Interpretive Data: Adult reference range values reflect the clinical guidelines
of the [place] [employer]. [facility] ELECTROLYTES Calcium Lvl 8.6 8.5 - 10.5 06/27/2014 [facility] ELECTROLYTES CO2 24 24 - 32 06/27/2014 [facility] ELECTROLYTES Chloride Lvl 102 95 - 109 06/27/2014 [facility] ELECTROLYTES Potassium Lvl 4.1 3.5 - 5.1 06/27/2014 [facility] ELECTROLYTES BUN 17 7 - 22 06/27/2014 [facility] ELECTROLYTES Sodium Lvl 138 135 - 145 06/27/2014 [facility] ELECTROLYTES Creatinine Lvl 0.9 0.5 - 1.4 06/27/2014 [facility] HEMATOLOGY WBC 4.6 3.7 - 10.4 06/27/2014 [facility] HEMATOLOGY RBC 4.71 4.70 - 6.10 06/27/2014 [facility] HEMATOLOGY Hgb 13.1 14.0 - 18.0 06/27/2014 [facility] HEMATOLOGY MPV 7.7 7.4 - 10.4 06/27/2014 [facility] HEMATOLOGY Hct 40.7 42.0 - 54.0 06/27/2014 [facility] HEMATOLOGY RDW 15.1 11.5 - 14.5 06/27/2014 [facility] HEMATOLOGY MCH 27.9 27.0 - 31.0 06/27/2014 [facility] HEMATOLOGY MCHC 32.2 32.0 - 36.0 06/27/2014 [facility] HEMATOLOGY MCV 86.4 80.0 - 94.0 06/27/2014 [facility] HEMATOLOGY Platelet 177 133 - 450 06/27/2014 [facility] HEMATOLOGY Monocytes # 0.5 0.0 - 0.8 06/27/2014 [facility] HEMATOLOGY Eosinophils # 0.1 0.0 - 0.5 06/27/2014 [facility] HEMATOLOGY Lymphocytes # 0.7 1.0 - 5.5 06/27/2014 [facility] HEMATOLOGY Segs 69.7 45.0 - 75.0 06/27/2014 [facility] HEMATOLOGY Segs-Bands # 3.2 1.5 - 8.1 06/27/2014 [facility] HEMATOLOGY Basophils 0.9 0.0 - 1.0 06/27/2014 [facility] HEMATOLOGY Eosinophils 2.6 0.0 - 4.0 06/27/2014 [facility] HEMATOLOGY Monocytes 11.5 2.0 - 12.0 06/27/2014 [facility] HEMATOLOGY Lymphocytes 15.3 20.0 - 40.0 06/27/2014 [facility] PARATHYROID PROFILE Ca Norm WB 0.98 1.05 - 1.25 06/27/2014 [facility] PARATHYROID PROFILE Ca Ion WB 0.94 1.05 - 1.25 06/27/2014 [facility] HEMATOLOGY Basophils # 0.1 0.0 - 0.2 06/26/2014 [facility] PARATHYROID PROFILE Ca Ion WB 1.01 1.05 - 1.25 06/26/2014 [facility] PARATHYROID PROFILE Ca Norm WB 1.04 1.05 - 1.25 06/26/2014 [facility] CARDIAC ENZYMES BNP 1900 <=100 pg/mL 06/25/2014 <sup>8</sup>Interpretive Data: Elevated results are in line with increasing severity of
congestive heart failure. Minor elevations between 100 and 300
may be seen with Myocardial Ischemia, Sodium retaining drugs,
and compensated/treated heart failure. [facility] CARDIAC ENZYMES Total CK 85 12 - 191 06/25/2014 [facility] CARDIAC ENZYMES Troponin-I 0.03 0.00 - 0.40 06/25/2014 [facility] CARDIAC ENZYMES Troponin-T <0.010 0.000 - 0.100 06/25/2014 [facility] CARDIAC ENZYMES CK MB Index 1.8 0.0 - 2.5 06/25/2014 [facility] CARDIAC ENZYMES CK MB 1.5 0.5 - 3.6 06/25/2014 [facility] HEMATOLOGY Basophils # 0.1 0.0 - 0.2 06/25/2014 [facility] HEMATOLOGY PTT 30.1 22.9 - 35.8 06/25/2014 <sup>11</sup>Interpretive Data: Heparin Therapeutic Range: 57 - 92 Seconds [facility] DRUG SCREEN UDS Note See Note 9 *NA* (06/24/14 9:26 PM) 06/25/2014 <sup>9</sup>Interpretive Data: Drugs reported as positive have not been confirmed by a second
method and should be used for medical purposes only. To order
confirmation, contact laboratory.

note: Below are cut-off concentrations for all urine drugs of
abuse performed in the laboratory. Some drugs listed in the table
may not be included in this panel.

Description Cut-off concentration

Amphetamine 1000 ng/mL
Barbiturates 200 ng/mL
Benzodiazepines 300 ng/mL
Cocaine metabolites 300 ng/mL
Opiates 300 ng/mL
Phencyclidine 25 ng/mL
Propoxyphene 300 ng/mL
Marijuana metabolites 50 ng/mL
Methadone 300 ng/mL
Urine alcohol 20 mg/dL [facility] DRUG SCREEN U Opiate Scr Negative *NA* (06/24/14 9:26 PM) Negative 06/25/2014 [facility] DRUG SCREEN U Phencyc Scr Negative *NA* (06/24/14 9:26 PM) Negative 06/25/2014 [facility] DRUG SCREEN U Cocaine Scr Negative *NA* (06/24/14 9:26 PM) Negative 06/25/2014 [facility] DRUG SCREEN U Cannab Scr Negative *NA* (06/24/14 9:26 PM) Negative 06/25/2014 [facility] DRUG SCREEN U Kimmy Scr Negative *NA* (06/24/14 9:26 PM) Negative 06/25/2014 [facility] DRUG SCREEN U Benzodia Scr Negative *NA* (06/24/14 9:26 PM) Negative 06/25/2014 [facility] DRUG SCREEN U Amph Scr Negative *NA* (06/24/14 9:26 PM) Negative 06/25/2014 [facility] URINE AND STOOL UA Sq Epi None Seen 06/25/2014 [facility] URINE AND STOOL UA Urobilinogen <=1.0 mg/dL 0.1 - 1.0 06/25/2014 [facility] URINE AND STOOL UA Leuk Est Negative (06/24/14 9:26 PM) Negative 06/25/2014 [facility] URINE AND STOOL UA Turbidity Clear (06/24/14 9:26 PM) Clear 06/25/2014 [facility] URINE AND STOOL UA Spec Grav 1.021 <=1.030 06/25/2014 [facility] URINE AND STOOL UA Color Yellow *NA* (06/24/14 9:26 PM) Yellow 06/25/2014 [facility] URINE AND STOOL UA Blood Negative (06/24/14 9:26 PM) Negative 06/25/2014 [facility] URINE AND STOOL UA Nitrite Negative (06/24/14 9:26 PM) Negative 06/25/2014 [facility] URINE AND STOOL UA RBC <1 0 - 2 06/25/2014 [facility] URINE AND STOOL UA WBC <1 0 - 5 06/25/2014 [facility] URINE AND STOOL UA Mucus Few /LPF None Seen /LPF 06/25/2014 [facility] URINE AND STOOL UA Ketones Negative mg/dL Negative mg/dL 06/25/2014 [facility] URINE AND STOOL UA Bili Negative *NA* (06/24/14 9:26 PM) Negative 06/25/2014 [facility] URINE AND STOOL UA pH 5.5 5.0 - 8.0 06/25/2014 [facility] URINE AND STOOL UA Protein 100 mg/dL Negative mg/dL 06/25/2014 [facility] URINE AND STOOL UA Glucose Negative mg/dL Negative mg/dL 06/25/2014 [facility] CHEM PANEL Bili Indirect 1.0 0.0 - 1.0 06/25/2014 [facility] CHEM PANEL Bili Total 1.1 0.2 - 1.3 06/25/2014 [facility] CHEM PANEL Bili Direct 0.1 0.0 - 0.3 06/25/2014 [facility] CHEM PANEL ASPARTATE TRANSAMINASE See Note (06/24/14 8:16 PM) 0 - 37 06/25/2014 [facility] CHEM PANEL Alk Phos See Note (06/24/14 8:16 PM) 39 - 136 06/25/2014 [facility] CHEM PANEL A/G Ratio See Note (06/24/14 8:16 PM) 0.7 - 1.6 06/25/2014 [facility] CHEM PANEL ALANINE AMINOTRANSFERASE See Note 7 (06/24/14 8:16 PM) 0 - 65 06/25/2014 <sup>7</sup>Result Comment: called wilder sinclair 06/24/2014 22:16 for recollection 06/24/2014 22:16..
Specimen Grossly Hemolyzed.
inst err.. [facility] CHEM PANEL Globulin See Note (06/24/14 8:16 PM) 2.0 - 4.0 06/25/2014 [facility] CHEM PANEL Albumin Lvl See Note (06/24/14 8:16 PM) 3.5 - 5.0 06/25/2014 [facility] CHEM PANEL Total Protein See Note (06/24/14 8:16 PM) 6.4 - 8.4 06/25/2014 [facility] HEMATOLOGY PTT 26.7 22.9 - 35.8 06/25/2014 <sup>12</sup>Interpretive Data: Heparin Therapeutic Range: 57 - 92 Seconds [facility] HEMATOLOGY PT 14.9 12.0 - 14.7 06/25/2014 [facility] HEMATOLOGY INR 1.16 0.85 - 1.17 06/25/2014 <sup>10</sup>Interpretive Data: RECOMMENDED RANGES FOR PROTIME INR:
2.0-3.0 for most medical and surgical thromboembolic states.
2.5-3.5 for artificial heart valves and recurrent embolism.

INR SHOULD BE USED ONLY FOR PATIENTS ON STABLE ANTICOAGULANT THERAPY. [facility] SPECIAL CHEMISTRY Hgb A1C 6.2 <=5.6 % 06/25/2014 [facility] HEMATOLOGY PTT 32.6 22.9 - 35.8 06/02/2014 <sup>13</sup>Interpretive Data: Heparin Therapeutic Range: 57 - 92 Seconds [facility] HEMATOLOGY INR 1.12 0.85 - 1.17 06/02/2014 <sup>10</sup>Interpretive Data: RECOMMENDED RANGES FOR PROTIME INR:
2.0-3.0 for most medical and surgical thromboembolic states.
2.5-3.5 for artificial heart valves and recurrent embolism.

INR SHOULD BE USED ONLY FOR PATIENTS ON STABLE ANTICOAGULANT THERAPY. [facility] HEMATOLOGY PT 14.5 12.0 - 14.7 06/02/2014 [facility] CHEM PANEL Phosphorus 4.1 2.5 - 4.5 06/02/2014 [facility] CHEM PANEL eGFR 92 06/02/2014 <sup>1</sup>Result Comment: The eGFR is calculated using the CKD-EPI formula. In most young, healthy individuals the eGFR will be >90 mL/min/1.73m2. The eGFR declines with age. An eGFR of 60-89 may be normal in some populations, particularly the elderly, for whom the CKD-EPI formula has not been extensively validated. Use of the eGFR is not recommended in the following populations:& lt;br/>
Individuals with unstable creatinine concentrations, including patients and those with serious co-morbid conditions.

Patients with extremes in muscle mass or diet.

The data above are obtained from the National Kidney Disease Education Program (NKDEP) which additionally recommends that when the eGFR is used in patients with extremes of body mass index for purposes of drug dosing, the eGFR should be multiplied by the estimated BMI. [facility] CHEM PANEL BUN 16 7 - 22 06/02/2014 [facility] CHEM PANEL Sodium Lvl 134 135 - 145 06/02/2014 [facility] CHEM PANEL Creatinine Lvl 0.9 0.5 - 1.4 06/02/2014 [facility] CHEM PANEL Calcium Lvl 8.7 8.5 - 10.5 06/02/2014 [facility] CHEM PANEL Chloride Lvl 104 95 - 109 06/02/2014 [facility] CHEM PANEL Potassium Lvl 4.0 3.5 - 5.1 06/02/2014 [facility] CHEM PANEL CO2 25 24 - 32 06/02/2014 [facility] CHEM PANEL Glucose Lvl 100 70 - 99 06/02/2014 <sup>4</sup>Interpretive Data: Adult reference range values reflect the clinical guidelines
of the [place] [employer]. [facility] CHEM PANEL AGAP 9.0 10.0 - 20.0 06/02/2014 [facility] CHEM PANEL Magnesium Lvl 1.8 1.8 - 2.4 06/02/2014 [facility] HEMATOLOGY Platelet 254 133 - 450 06/02/2014 [facility] HEMATOLOGY MPV 7.3 7.4 - 10.4 06/02/2014 [facility] HEMATOLOGY MCHC 33.9 32.0 - 36.0 06/02/2014 [facility] HEMATOLOGY RDW 13.8 11.5 - 14.5 06/02/2014 [facility] HEMATOLOGY MCH 29.8 27.0 - 31.0 06/02/2014 [facility] HEMATOLOGY MCV 88.1 80.0 - 94.0 06/02/2014 [facility] HEMATOLOGY Hct 38.3 42.0 - 54.0 06/02/2014 [facility] HEMATOLOGY RBC 4.35 4.70 - 6.10 06/02/2014 [facility] HEMATOLOGY Hgb 13.0 14.0 - 18.0 06/02/2014 [facility] HEMATOLOGY WBC 7.4 3.7 - 10.4 06/02/2014 [facility] HEMATOLOGY Basophils # 0.1 0.0 - 0.2 06/02/2014 [facility] HEMATOLOGY Eosinophils # 0.2 0.0 - 0.5 06/02/2014 [facility] HEMATOLOGY Lymphocytes # 0.8 1.0 - 5.5 06/02/2014 [facility] HEMATOLOGY Monocytes # 0.8 0.0 - 0.8 06/02/2014 [facility] HEMATOLOGY Basophils 1.2 0.0 - 1.0 06/02/2014 [facility] HEMATOLOGY Segs-Bands # 5.5 1.5 - 8.1 06/02/2014 [facility] HEMATOLOGY Eosinophils 2.1 0.0 - 4.0 06/02/2014 [facility] HEMATOLOGY Lymphocytes 10.5 20.0 - 40.0 06/02/2014 [facility] HEMATOLOGY Monocytes 11.4 2.0 - 12.0 06/02/2014 [facility] HEMATOLOGY Segs 74.8 45.0 - 75.0 06/02/2014 [facility] PARATHYROID PROFILE Ca Norm WB 1.08 1.05 - 1.25 06/02/2014 [facility] PARATHYROID PROFILE Ca Ion WB 1.05 1.05 - 1.25 06/02/2014 [facility] CHEM PANEL Magnesium Lvl 1.9 1.8 - 2.4 06/01/2014 [facility] CHEM PANEL Phosphorus 4.4 2.5 - 4.5 06/01/2014 [facility] CHEM PANEL eGFR 92 06/01/2014 <sup>2</sup>Result Comment: The eGFR is calculated using the CKD-EPI formula. In most young, healthy individuals the eGFR will be >90 mL/min/1.73m2. The eGFR declines with age. An eGFR of 60-89 may be normal in some populations, particularly the elderly, for whom the CKD-EPI formula has not been extensively validated. Use of the eGFR is not recommended in the following populations:& lt;br/>
Individuals with unstable creatinine concentrations, including patients and those with serious co-morbid conditions.

Patients with extremes in muscle mass or diet.

The data above are obtained from the National Kidney Disease Education Program (NKDEP) which additionally recommends that when the eGFR is used in patients with extremes of body mass index for purposes of drug dosing, the eGFR should be multiplied by the estimated BMI. [facility] CHEM PANEL Sodium Lvl 136 135 - 145 06/01/2014 [facility] CHEM PANEL Creatinine Lvl 0.9 0.5 - 1.4 06/01/2014 [facility] CHEM PANEL BUN 17 7 - 22 06/01/2014 [facility] CHEM PANEL Glucose Lvl 91 70 - 99 06/01/2014 <sup>5</sup>Interpretive Data: Adult reference range values reflect the clinical guidelines
of the [place] [employer]. [facility] CHEM PANEL Potassium Lvl 4.1 3.5 - 5.1 06/01/2014 [facility] CHEM PANEL CO2 26 24 - 32 06/01/2014 [facility] CHEM PANEL Chloride Lvl 103 95 - 109 06/01/2014 [facility] CHEM PANEL Calcium Lvl 8.6 8.5 - 10.5 06/01/2014 [facility] CHEM PANEL AGAP 11.1 10.0 - 20.0 06/01/2014 [facility] HEMATOLOGY Monocytes # 0.6 0.0 - 0.8 06/01/2014 [facility] HEMATOLOGY Segs 84.0 45.0 - 75.0 06/01/2014 [facility] HEMATOLOGY Lymphocytes 7.0 20.0 - 40.0 06/01/2014 [facility] HEMATOLOGY Monocytes 9.0 2.0 - 12.0 06/01/2014 [facility] HEMATOLOGY Bands 0.0 0.0 - 11.0 06/01/2014 [facility] HEMATOLOGY Atypical Lymphs 0.0 <=0.0 % 06/01/2014 [facility] HEMATOLOGY Plt Morph Normal (06/01/14 5:24 AM) 06/01/2014 [facility] HEMATOLOGY RBC Morph Normal (06/01/14 5:24 AM) 06/01/2014 [facility] HEMATOLOGY Lymphocytes # 0.5 1.0 - 5.5 06/01/2014 [facility] HEMATOLOGY Segs-Bands # 6.0 1.5 - 8.1 06/01/2014 [facility] HEMATOLOGY Hct 38.2 42.0 - 54.0 06/01/2014 [facility] HEMATOLOGY WBC X 10x3 7.1 3.7 - 10.4 06/01/2014 [facility] HEMATOLOGY RBC X 10x6 4.30 4.70 - 6.10 06/01/2014 [facility] HEMATOLOGY Hgb 12.4 14.0 - 18.0 06/01/2014 [facility] HEMATOLOGY MCV 89.0 80.0 - 94.0 06/01/2014 [facility] HEMATOLOGY Platelet 209 133 - 450 06/01/2014 [facility] HEMATOLOGY MPV 7.3 7.4 - 10.4 06/01/2014 [facility] HEMATOLOGY MCH 28.9 27.0 - 31.0 06/01/2014 [facility] HEMATOLOGY MCHC 32.5 32.0 - 36.0 06/01/2014 [facility] HEMATOLOGY RDW 13.8 11.5 - 14.5 06/01/2014 [facility] PARATHYROID PROFILE Ca Norm WB 1.12 1.05 - 1.25 06/01/2014 [facility] PARATHYROID PROFILE Ca Ion WB 1.14 1.05 - 1.25 06/01/2014 [facility] CHEM PANEL Magnesium Lvl 2.0 1.8 - 2.4 05/31/2014 [facility] CHEM PANEL eGFR 81 05/31/2014 <sup>3</sup>Result Comment: The eGFR is calculated using the CKD-EPI formula. In most young, healthy individuals the eGFR will be >90 mL/min/1.73m2. The eGFR declines with age. An eGFR of 60-89 may be normal in some populations, particularly the elderly, for whom the CKD-EPI formula has not been extensively validated. Use of the eGFR is not recommended in the following populations:& lt;br/>
Individuals with unstable creatinine concentrations, including patients and those with serious co-morbid conditions.

Patients with extremes in muscle mass or diet.

The data above are obtained from the National Kidney Disease Education Program (NKDEP) which additionally recommends that when the eGFR is used in patients with extremes of body mass index for purposes of drug dosing, the eGFR should be multiplied by the estimated BMI. [facility] CHEM PANEL Potassium Lvl 4.2 3.5 - 5.1 05/31/2014 [facility] CHEM PANEL Chloride Lvl 100 95 - 109 05/31/2014 [facility] CHEM PANEL CO2 24 24 - 32 05/31/2014 [facility] CHEM PANEL Calcium Lvl 8.4 8.5 - 10.5 05/31/2014 [facility] CHEM PANEL Creatinine Lvl 1.0 0.5 - 1.4 05/31/2014 [facility] CHEM PANEL Glucose Lvl 89 70 - 99 05/31/2014 <sup>6</sup>Interpretive Data: Adult reference range values reflect the clinical guidelines
of the [place] [employer]. [facility] CHEM PANEL BUN 18 7 - 22 05/31/2014 [facility] CHEM PANEL Sodium Lvl 134 135 - 145 05/31/2014 [facility] CHEM PANEL AGAP 14.2 10.0 - 20.0 05/31/2014 [facility] CHEM PANEL Phosphorus 3.6 2.5 - 4.5 05/31/2014 [facility] HEMATOLOGY Lymphocytes 11.5 20.0 - 40.0 05/31/2014 [facility] HEMATOLOGY Segs 74.2 45.0 - 75.0 05/31/2014 [facility] HEMATOLOGY Segs-Bands # 5.9 1.5 - 8.1 05/31/2014 [facility] HEMATOLOGY Lymphocytes # 0.9 1.0 - 5.5 05/31/2014 [facility] HEMATOLOGY Basophils 0.9 0.0 - 1.0 05/31/2014 [facility] HEMATOLOGY Monocytes # 0.9 0.0 - 0.8 05/31/2014 [facility] HEMATOLOGY Monocytes 11.2 2.0 - 12.0 05/31/2014 [facility] HEMATOLOGY Eosinophils 2.2 0.0 - 4.0 05/31/2014 [facility] HEMATOLOGY Eosinophils # 0.2 0.0 - 0.5 05/31/2014 [facility] HEMATOLOGY Basophils # 0.1 0.0 - 0.2 05/31/2014 [facility] HEMATOLOGY RDW 13.7 11.5 - 14.5 05/31/2014 [facility] HEMATOLOGY MPV 7.5 7.4 - 10.4 05/31/2014 [facility] HEMATOLOGY Platelet 196 133 - 450 05/31/2014 [facility] HEMATOLOGY Hct 39.6 42.0 - 54.0 05/31/2014 [facility] HEMATOLOGY MCV 89.1 80.0 - 94.0 05/31/2014 [facility] HEMATOLOGY MCH 29.4 27.0 - 31.0 05/31/2014 [facility] HEMATOLOGY RBC 4.44 4.70 - 6.10 05/31/2014 [facility] HEMATOLOGY Hgb 13.1 14.0 - 18.0 05/31/2014 [facility] HEMATOLOGY MCHC 33.0 32.0 - 36.0 05/31/2014 [facility] HEMATOLOGY WBC 8.0 3.7 - 10.4 05/31/2014 [facility] PARATHYROID PROFILE Ca Norm WB 1.01 1.05 - 1.25 05/31/2014 [facility] PARATHYROID PROFILE Ca Ion WB 1.02 1.05 - 1.25 05/31/2014 [facility] TOXICOLOGY Vanco Tr TND 0730 05/30/2014 [facility] TOXICOLOGY Vanco Tr 8.6 05/30/2014 <sup>9</sup>Interpretive Data: Therapeutic Range:
Trough: 10 - 20 ug/mL
Peak: 20 - 40 ug/mL
Potential Toxicity: >80 ug/mL [facility] HEMATOLOGY Eosinophils # 0.2 0.0 - 0.5 05/30/2014 [facility] HEMATOLOGY Basophils 0.6 0.0 - 1.0 05/30/2014 [facility] HEMATOLOGY Eosinophils 2.1 0.0 - 4.0 05/30/2014 [facility] URINE AND STOOL UA Urobilinogen <=1.0 mg/dL 0.1 - 1.0 05/29/2014 [facility] URINE AND STOOL UA WBC 35 0 - 5 05/29/2014 [facility] URINE AND STOOL UA RBC 233 0 - 2 05/29/2014 [facility] URINE AND STOOL UA pH 6.0 5.0 - 8.0 05/29/2014 [facility] URINE AND STOOL UA Glucose Negative mg/dL Negative mg/dL 05/29/2014 [facility] URINE AND STOOL UA Protein 50 mg/dL Negative mg/dL 05/29/2014 [facility] URINE AND STOOL UA Blood Large *ABN* (05/29/14 1:30 PM) Negative 05/29/2014 [facility] URINE AND STOOL UA Bili Negative *NA* (05/29/14 1:30 PM) Negative 05/29/2014 [facility] URINE AND STOOL UA Ketones Negative mg/dL Negative mg/dL 05/29/2014 [facility] URINE AND STOOL UA Nitrite Negative (05/29/14 1:30 PM) Negative 05/29/2014 [facility] URINE AND STOOL UA Spec Grav 1.022 <=1.030 05/29/2014 [facility] URINE AND STOOL UA Turbidity Slight *ABN* (05/29/14 1:30 PM) Clear 05/29/2014 [facility] URINE AND STOOL UA Color Yellow *NA* (05/29/14 1:30 PM) Yellow 05/29/2014 [facility] URINE AND STOOL UA Sq Epi Moderate /LPF Few /LPF 05/29/2014 [facility] URINE AND STOOL UA Leuk Est Moderate *ABN* (05/29/14 1:30 PM) Negative 05/29/2014 [facility] URINE AND STOOL UA Mucus Many /LPF None Seen /LPF 05/29/2014 [facility] URINE AND STOOL UA Bacteria Few /HPF None Seen /HPF 05/29/2014 [facility] HEMATOLOGY Basophils # 0.1 0.0 - 0.2 05/29/2014 [facility] HEMATOLOGY INR 1.17 0.85 - 1.17 05/29/2014 <sup>11</sup>Interpretive Data: RECOMMENDED RANGES FOR PROTIME INR:
2.0-3.0 for most medical and surgical thromboembolic states.
2.5-3.5 for artificial heart valves and recurrent embolism.

INR SHOULD BE USED ONLY FOR PATIENTS ON STABLE ANTICOAGULANT THERAPY. [facility] HEMATOLOGY PT 15.0 12.0 - 14.7 05/29/2014 [facility] HEMATOLOGY PTT 32.6 22.9 - 35.8 05/29/2014 <sup>14</sup>Interpretive Data: Heparin Therapeutic Range: 57 - 92 Seconds [facility] HEMATOLOGY POC Activated Clotting Time 167 05/28/2014 [facility] HEMATOLOGY POC Activated Clotting Time 169 05/28/2014 [facility] BLOOD BANK RESULTS FFP product Product available (05/28/14 8:47 AM) 05/28/2014 [facility] BLOOD BANK RESULTS RBC product Product available (05/28/14 8:47 AM) 05/28/2014 [facility] BLOOD BANK RESULTS Antibody Scrn Negative (05/28/14 2:00 AM) 05/28/2014 [facility] BLOOD BANK RESULTS ABO/Rh A POS 05/28/2014 [facility] HEMATOLOGY INR 1.10 0.85 - 1.17 05/28/2014 <sup>12</sup>Interpretive Data: RECOMMENDED RANGES FOR PROTIME INR:
2.0-3.0 for most medical and surgical thromboembolic states.
2.5-3.5 for artificial heart valves and recurrent embolism.

INR SHOULD BE USED ONLY FOR PATIENTS ON STABLE ANTICOAGULANT THERAPY. [facility] HEMATOLOGY PT 14.3 12.0 - 14.7 05/28/2014 [facility] HEMATOLOGY PTT 32.8 22.9 - 35.8 05/28/2014 <sup>15</sup>Interpretive Data: Heparin Therapeutic Range: 57 - 92 Seconds [facility] HEMATOLOGY Plt Morph Normal (05/24/14 3:37 AM) 05/24/2014 [facility] HEMATOLOGY RBC Morph Normal (05/24/14 3:37 AM) 05/24/2014 [facility] HEMATOLOGY POC Activated Clotting Time 186 05/21/2014 [facility] DRUG SCREEN U Phencyc Scr Negative *NA* (05/19/14 8:18 AM) Negative 05/19/2014 [facility] DRUG SCREEN UDS Note See Note 8 *NA* (05/19/14 8:18 AM) 05/19/2014 <sup>8</sup>Interpretive Data: Drugs reported as positive have not been confirmed by a second
method and should be used for medical purposes only. To order
confirmation, contact laboratory.

note: Below are cut-off concentrations for all urine drugs of
abuse performed in the laboratory. Some drugs listed in the table
may not be included in this panel.

Description Cut-off concentration

Amphetamine 1000 ng/mL
Barbiturates 200 ng/mL
Benzodiazepines 300 ng/mL
Cocaine metabolites 300 ng/mL
Opiates 300 ng/mL
Phencyclidine 25 ng/mL
Propoxyphene 300 ng/mL
Marijuana metabolites 50 ng/mL
Methadone 300 ng/mL
Urine alcohol 20 mg/dL [facility] DRUG SCREEN U Opiate Scr Negative *NA* (05/19/14 8:18 AM) Negative 05/19/2014 [facility] DRUG SCREEN U Cannab Scr Negative *NA* (05/19/14 8:18 AM) Negative 05/19/2014 [facility] DRUG SCREEN U Cocaine Scr Negative *NA* (05/19/14 8:18 AM) Negative 05/19/2014 [facility] DRUG SCREEN U Kimmy Scr Negative *NA* (05/19/14 8:18 AM) Negative 05/19/2014 [facility] DRUG SCREEN U Benzodia Scr Negative *NA* (05/19/14 8:18 AM) Negative 05/19/2014 [facility] DRUG SCREEN U Amph Scr Negative *NA* (05/19/14 8:18 AM) Negative 05/19/2014 [facility] CARDIAC ENZYMES CK MB 1.7 0.5 - 3.6 05/19/2014 [facility] CARDIAC ENZYMES Total CK 134 12 - 191 05/19/2014 [facility] CARDIAC ENZYMES Troponin-T 0.022 0.000 - 0.100 05/19/2014 [facility] CARDIAC ENZYMES Troponin-I 0.03 0.00 - 0.40 05/19/2014 [facility] CARDIAC ENZYMES CK MB Index 1.3 0.0 - 2.5 05/19/2014 [facility] CHEM PANEL Bili Total 1.3 0.2 - 1.3 05/19/2014 [facility] CHEM PANEL AST 23 0 - 37 05/19/2014 [facility] CHEM PANEL ALT 45 0 - 65 05/19/2014 [facility] CHEM PANEL Alk Phos 54 39 - 136 05/19/2014 [facility] CHEM PANEL A/G Ratio 1.2 0.7 - 1.6 05/19/2014 [facility] CHEM PANEL Globulin 2.8 2.0 - 4.0 05/19/2014 [facility] CHEM PANEL B/C Ratio 19 6 - 25 05/19/2014 [facility] CHEM PANEL Albumin Lvl 3.5 3.5 - 5.0 05/19/2014 [facility] CHEM PANEL Total Protein 6.3 6.4 - 8.4 05/19/2014 [facility] LIPIDS VLDL 11 05/19/2014 [facility] LIPIDS HDL 44 >=61 mg/dL 05/19/2014 [facility] LIPIDS LDL (Calculated) 82 <=99 mg/dL 05/19/2014 [facility] LIPIDS Trig 55 <=149 mg/dL 05/19/2014 [facility] LIPIDS Chol 137 <=199 mg/dL 05/19/2014 [facility] LIPIDS CHD Risk 3.11 4.00 - 7.30 05/19/2014 [facility] SPECIAL CHEMISTRY Hgb A1C 5.9 <=5.6 % 05/19/2014 [facility] THYROID PANEL TSH 3.380 0.360 - 3.740 05/19/2014 [facility] THYROID PANEL T4 8.0 4.7 - 13.3 05/19/2014 [facility] THYROID PANEL T3 Uptake 32 31 - 39 05/19/2014 [facility] THYROID PANEL FTI 2.6 05/19/2014 [facility] CARDIAC ENZYMES BNP 788 <=100 pg/mL 05/18/2014 <sup>7</sup>Interpretive Data: Elevated results are in line with increasing severity of
congestive heart failure. Minor elevations between 100 and 300
may be seen with Myocardial Ischemia, Sodium retaining drugs,
and compensated/treated heart failure. [facility] CARDIAC ENZYMES Total CK 136 12 - 191 05/18/2014 [facility] CARDIAC ENZYMES Troponin-I 0.03 0.00 - 0.40 05/18/2014 [facility] CHEM PANEL B/C Ratio 18 6 - 25 05/18/2014 [facility] CHEM PANEL A/G Ratio 1.2 0.7 - 1.6 05/18/2014 [facility] CHEM PANEL Globulin 3.2 2.0 - 4.0 05/18/2014 [facility] CHEM PANEL Bili Total 1.4 0.2 - 1.3 05/18/2014 [facility] CHEM PANEL Alk Phos 63 39 - 136 05/18/2014 [facility] CHEM PANEL Albumin Lvl 3.8 3.5 - 5.0 05/18/2014 [facility] CHEM PANEL Total Protein 7.0 6.4 - 8.4 05/18/2014 [facility] CHEM PANEL AST 29 0 - 37 05/18/2014 [facility] CHEM PANEL ALT 57 0 - 65 05/18/2014 [facility] HEMATOLOGY Plt Morph Normal (05/18/14 5:26 PM) 05/18/2014 [facility] HEMATOLOGY RBC Morph Normal (05/18/14 5:26 PM) 05/18/2014 [facility] Pathology Reports No Data Provided for This Section Diagnostic Reports No Data Provided for This Section Consultation Notes No Data Provided for This Section Discharge Summaries No Data Provided for This Section History and Physicals No Data Provided for This Section Vital Signs Vital Sign Value Date Comments Source Weight 97.273 10/07/2014 [facility] BMI Calculated 29.08 10/07/2014 [facility] Height 182.88 cm 10/07/2014 [facility] Height 182.88 cm 09/02/2014 [facility] BMI Calculated 29.08 09/02/2014 [facility] Weight 97.273 09/02/2014 [facility] Height 182.88 cm 08/05/2014 [facility] Weight 97.273 08/05/2014 [facility] BMI Calculated 29.08 08/05/2014 [facility] Height 182.88 cm 07/02/2014 [facility] Weight 97.273 07/02/2014 [facility] BMI Calculated 29.08 07/02/2014 [facility] Systolic (mm Hg) 87 06/29/2014 [facility] Diastolic (mm Hg) 65 06/29/2014 [facility] Temperature Oral (F) 97.8 F 06/29/2014 [facility] Respitory Rate 16 06/29/2014 [facility] Systolic (mm Hg) 93 06/29/2014 [facility] Diastolic (mm Hg) 72 06/29/2014 [facility] Temperature Oral (F) 97.8 F 06/29/2014 [facility] Systolic (mm Hg) 107 06/29/2014 [facility] Diastolic (mm Hg) 78 06/29/2014 [facility] Temperature Oral (F) 97.8 F 06/29/2014 [facility] Respitory Rate 16 06/28/2014 [facility] Respitory Rate 18 06/28/2014 [facility] Height 182.88 cm 06/24/2014 [facility] BMI Calculated 31.12 06/24/2014 [facility] Weight 104.091 06/24/2014 [facility] Weight 103.636 06/24/2014 [facility] Height 182.88 cm 06/24/2014 [facility] BMI Calculated 30.99 06/24/2014 [facility] Temperature Oral (F) 96.9 F 06/02/2014 [facility] Respitory Rate 18 06/02/2014 [facility] Systolic (mm Hg) 95 06/02/2014 [facility] Diastolic (mm Hg) 75 06/02/2014 [facility] Systolic (mm Hg) 93 06/02/2014 [facility] Diastolic (mm Hg) 61 06/02/2014 [facility] Respitory Rate 20 06/02/2014 [facility] Respitory Rate 18 06/02/2014 [facility] Systolic (mm Hg) 95 06/02/2014 [facility] Diastolic (mm Hg) 71 06/02/2014 [facility] Temperature Oral (F) 96.8 F 06/02/2014 [facility] Temperature Oral (F) 98.9 F 06/02/2014 [facility] Weight 98.7 05/23/2014 [facility] Height 182.88 cm 05/19/2014 [facility] BMI Calculated 30.17 05/19/2014 [facility] Weight 100.909 05/19/2014 [facility] Heart Rate 103 05/18/2014 [facility] Heart Rate 108 05/18/2014 [facility] Weight 100 05/18/2014 [facility] BMI Calculated 29.9 05/18/2014 [facility] Height 182.88 cm 05/18/2014 [facility] Encounters Location Location Details Encounter Type Encounter Number Reason For Visit Attending Provider ADM Date DC Date Status Source [facility] [place] [facility] [id number] Елена Capone 05/04/2014 05/05/2014 [facility] Inpatient [id number] Jose Adler 05/18/2014 06/02/2014 [facility] Inpatient [id number] Jose Adler 06/24/2014 06/29/2014 [facility] OP Recurring [id number] Jose Adler 07/02/2014 08/01/2014 [facility] OP Recurring [id number] Jose Adler 08/03/2014 09/02/2014 [facility] OP Recurring [id number] Jose Adler 09/02/2014 10/02/2014 [facility] OP Recurring [id number] Jose Adler 10/07/2014 11/06/2014 [facility] Procedures Procedure Code Date Perfomer Comments Source H/O knee surgery [id number] [facility] MVR - Mitral valve repair<sup>1</sup> [id number] Mitral valve clips [facility] H/O knee surgery [id number] [facility] MVR - Mitral valve repair<sup>1</sup> [id number] 1Mitral valve clips [facility] Assessment and Plan Assessment and Plan Date Source Extracted from:Title: [facility] Discharge summary Author: Carrie Cruz MD Date: 06/29/14 Discharge Summary Name: Hunter Golden Record Number: [id number] Admission Date: 06/25/14 Discharge Date: 06/29/14 Diagnoses: Acute on chronic CHF CM HTN Hypothyroidism Chronic lymphedema Procedures: Echo and sub max stress test Chief Complaint HPI: 59 year old male pmhx of hypothyroidism, hyperlipidemia, hypertension, obstructive sleep apnea, NHL s/p chemo in 85, 87), non-obstructive CAD, non-ischemic cardiomyopathy presents with increased shorthess of breath and fatigue. Patient was recently discharged from [facility] s/p mitral valve clipping x [address] Adler with EF of 20-25%. Since discharge patient has been complaining of increased fatigue and dyspnea. Patient states he has not noticed any improvement since prior to versus after the surgery. Patient states from 06/16-06/21, he was excessively fatigued most specifically when he lifted grocery bags from the grocery store and felt exhausted. Associated 3-4 pillow orthopnea. Denies nausea, vomiting, diaphoresis, headaches. Patient was evaluated in clinic today with Dr. Adler for post operative appointment. Patient was found to be persistently fatigued and dyspnic. Patient had repeat echo done at bedside with EF < 10%. PMH: as stated above Hospital course: While inpatient, medications were titrated per Dr. Adler and patient was asymptomatic even on walking. He had no EKG changes with troponins negative x2. He received echo and sub max stress test and was sent home stable condition with follow up Dr. Adler. Discharge condition: stable, good Recent signficant physical findings: none Recent significant lab and radiology results:will follow up with Dr. Adler in 2 weeks with echo and sub max stress test Echo 06/29/14 Conclusions 1) Left ventricle is dilated, with severe impairment of systolic function. 2) Right ventricle is mildly dilated, with mild impairment of systolic function. 3) Biatrial dilatation. 4) Three MitraClips well seated across mitral leaflets, with mild to moderate regurgitation. 5) Mean mitral gradient: 8 mm Hg; HR: 87 bpm. 6) Moderate aortic regurgitation. 7) Mild to moderate tricuspid regurgitation. 8) Estimated RVSP: 30 mm Hg. 9) No intracardiac masses. 10) No pericardial effusion. Sub max stress test 06/29/14 CONCLUSIONS: 1. Normal hemodynamic submaximal exercise test. 2. Inconclusive ECG submaximal exercise test due to inadequate heart rate. Discharge therapy: Medications: as per med rec (was sent on BB, ASA, ACEi Plavix, Lasix, spironolactone) Diet : heart healthy Activity: as tolerated Follow up : will follow up with Dr. Adler in 2 weeks on July 15 at 3:30 pm I have seen and examined the patient with the Resident/Fellow. I agree with the findings and plans above except for the following: Extracted from:Title: JUANITO progress note Author: Carrie Cruz MD Date: 06/29/14 Progress Note - Daily [facility] Completed: Sunday, JUN 29, 2014, 05:47 by Carrie Cruz MD RM: JUANITO Chakraborty 15, I HUNTER HARDY 59y (: 1955) M Attending: Jose Adler MD Service: Cardiology Service Reason for Admission: ACUTE ON CHRONIC CHF Working DRG: None Documented Code status: Full Code [Ordered] Isolation: None Documented Allergies: NKDA SUBJECTIVE Patient doing well. NAEO. BP low at 3am 58/39 with MAP 45 but increased when woken up. Denies lightheadedness, palpiations, chest pain, dyspnea. Able to walk around without assistance or feeling ill. Taking PO and had BM yesterday. Will go for echo and stress test today. OBJECTIVE 24hr Labs 06/28 0509 Glucose Lvl 79 BUN 17 Creatinine Lvl 0.9 Sodium Lvl 139 Potassium Lvl 4.4 Chloride Lvl 105 CO2 25 AGAP 13.4 Calcium Lvl 8.7 eGFR 92 Magnesium Lvl 2.0 Phosphorus 4.1 WBC 4.8 RBC 4.54 L Hgb 13.0 L Hct 38.8 L MCV 85.4 MCH 28.6 MCHC 33.5 RDW 14.5 Platelet 198 MPV 7.4 Segs 63.2 Monocytes 12.7 H Lymphocytes 20.3 Eosinophils 2.9 Basophils 0.9 Segs-Bands # 3.0 Lymphocytes # 1.0 Monocytes # 0.6 Eosinophils # 0.1 Fry still necessary (Yes/No): Line still necessary (Yes/No): Vitals Tmp(F) Pulse BP RR SpO2 FIO2 06/29 05:00 ---- 82 87/65 -- --- --- 06/29 04:00 97.8 82 92/65 -- --- --- 06/29 03:00 ---- 80 58/39 -- --- --- 06/29 02:00 ---- 84 63/42 -- --- --- 06/29 01:00 ---- 92 103/76 -- --- --- 24 Hr Tmax: 97.8F (36.56c) at 06/29 04:00 Vital Signs are the last 5 in the past 48 hours. Date Wt(kg) Wt(lb) Ht(cm) Ht(in) Method 06/28 97.23 213.90 Measured 06/26 97.36 214.20 Measured 06/24 (initial) 103.64 228.00 Measured 06/24 182.88 72.00 Stated I&O Record In Out Bal 06/28 24hr Tot 630 2100 -1470 06/27 24hr Tot 700 700 0 Medications (11) Active Scheduled Meds (9): 06/25/14 aspirin (aspirin 81 mg tablet, enteric coated) 81 mg PO Daily 06/24/14 atorvastatin 40 mg PO Bedtime 06/27/14 carvedilol (Coreg) 12.5 mg PO Q12H 06/25/14 clopidogrel 75 mg PO Daily 06/27/14 furosemide (Lasix 40 mg oral tablet) 40 mg PO Daily 06/25/14 heparin 7,500 unit SUB-Q Q8H 06/25/14 levothyroxine 125 microgram PO Q630AM 06/27/14 lisinopril 2.5 mg PO Q12H 06/26/14 spironolactone 25 mg PO Daily Unscheduled Meds: None PRN Meds (2): 06/24/14 albuterol (ProAir HFA 90 mcg/inh inhalation aerosol with adapter) 180 microgram INHALATION Q4H 06/24/14 nitroglycerin (nitroglycerin SL Tab) 0.4 mg SL Q5Min One Time Meds: None Continuous Infusions: None PE General: AAOx3, no acute distress, resting comfortably HEENT: EOMI Lungs: CTAB, no respiratory distress CV: RRR, +S1/S2, no murmurs GI: +BS, soft/nontender/nondistended Musc: mild chronic pitting edema right lower extremity Neuro: CN 2-12 grossly intact, no focal deficits appreciated ASSESSMENT and EXAM 59 year old male pmhx of hypothyroidism, hyperlipidemia, hypertension, obstructive sleep apnea, NHL s/p chemo in 1984 and 1986, non-obstructive CAD, non-ischemic cardiomyopathy, severe mitral regurgitation s/p recent mitral valve clipping x3 w/ EF 20-25% who presents with increased shorthess of breath and fatigue. Patient sent from Dr. Adler's clinic where he was found to have EF < 10%. 1. Acute on chronic CHF -Bedside echo in clinic 06/24 EF < 10% and with pericardial effusion -Will diurese and start low dose afterload reduction medications; hold interventions at this time -Lasix 40 mg PO q AM -Coreg 12.5 mg q12h, Lisinopril 2.5mg q12h, Lasix 40 mg PO qAM, Spironolactone 25 mg qAM. ASA 81 mg, Plavix 75 mg and Lipitor 40 mg daily. -Plan for TTE and sub max stress test today -BNP 1900 and Troponins negative x2 2. Cardiomyopathy - S/p Mitral clip surgery: 3 clips placed in mid&medial scallops, moderate mitral regurg, mild-moderate stenosis, area of 1.74cm, gradient of 10. 3. HTN - Continue Coreg 12.5 q12h, Lisinopril 2.5 mg q12h, Spironolactone 25 mg daily, Lasix 40 mg q AM 4. HLD - Atorvastatin 40mg QD 5. Hypothyroidism - Synthroid 125 mcg 6. Chronic lymphedema - Lasix 40mg q AM 7. DVT Prophylaxis - Heparin 7500 Q12H 8. Diet - Heart Healthy Dispo: sub max stress test tomorrow and echo today. Will follow up results. Above to be reviewed by Dr. Adler! Addendum by Carrie Cruz MD on 06/29/2014 06:40 AM labs returned. Magnesium will be replaced 2g IV as patient is NPO for now. Hyperkalemia at 4.8 with no telemetry changes- likely 2/2 spironolactone- monitor Addendum by Jose Adler MD on 06/29/2014 08:02 I have seen and examined the patient with the Resident/Fellow. I agree with the findings and plans above except for the following: Awaiting sub-max stress test. Tolerating coco and Beta Jody. HR and BP in good range. Prob D/C today. Extracted from:Title: Cardiology History and Physical Author: Matthew Alicea MD Date: 06/25/14 Impression and Plan 59 year old male pmhx of hypothyroidism, hyperlipidemia, hypertension, obstructive sleep apnea, NHL s/p chemo in 85, 87), non-obstructive CAD, non-ischemic cardiomyopathy (EF of ) presents with increased shorthess of breath and fatigue. Patient sent from Dr. Adler's clinic where he was found to have EF < 10%. Problem List #CHF #Mitral valve clipping #HTN #HLD #Hypothyroidism 1. Acute on chronic CHF - orthopnea, dyspnea and fatigue - TTE: pending (prior EF 20-25%) -Bedside echo in clinic 06/24 EF < 10% and with pericardial effusion - may consider LVAD vs heart transplant - trending EKG, troponins 2. Cardiomyopathy - S/p Mitral clip surgery: 3 clips placed in mid&medial scallops, moderate mitral regurg, mild-moderate stenosis, area of 1.74cm, gradient of 10. - continue work up for ischemic vs non-ischemic cardiomyopathy - NPO at midnight for possible left heart catheterization for work up of cardiomyopathy - CXR not concerning for acute changes 3. HTN - home medications: coreg 3.125mg BID 4. HLD - atorvastatin 40mg QD - lipid panel from 05/19/14 5. Hypothyroidism - synthroid 175 mcg 6. Chronic lymphedema - lasix 40mg BID 7. Prophylaxis - heparin 7500 Q12H Matthew Alicea MD I have seen and examined the patient with the Resident/Fellow. I agree with the findings and plans above except for the following: will diurese, start low dose afterload reduction, hold of on invasive measures for now. 06/29/2014 [facility] Extracted from:Title: Progress Note * Author: Don Ramirez MD Date: 06/02/14 Patient: HUNTER GOLDEN Age: 59 years Sex: Male : 1955 Associated Diagnoses: None Author: Don Ramirez MD Subjective 24 beats of V tach overnight Review of Systems Constitutional: Negative. Eye: Negative. Ear/Nose/Mouth/Throat: Negative. Respiratory: Negative. Cardiovascular: Negative. Gastrointestinal: Negative. Genitourinary: Negative. Hematology/Lymphatics: Negative. Immunologic: Negative. Musculoskeletal: Negative. Health Status Allergies: Allergic Reactions (All) Severity Not Documented NKDA- No reactions were documented. Objective Meds Scheduled Meds (7):aspirin (aspirin 81 mg tablet, enteric coated), atorvastatin, docusate, enoxaparin (Lovenox), levothyroxine, metoprolol (Lopressor), sodium chloride (Saline Flush 0.9%) Unscheduled Meds: None PRN Meds (23):acetaminophen-hydrocodone ([place] 5/325 oral tablet), bisacodyl (Dulcolax Laxative), bisacodyl, calcium carbonate (calcium carbonate 500 mg (200 mg elemental calcium) oral tablet), calcium carbonate (calcium carbonate 500 mg (200 mg elemental calcium) oral tablet), calcium gluconate + Sodium Chloride 0.9% IV 50 mL, magnesium oxide, magnesium sulfate, melatonin, ondansetron (Zofran), potassium chloride, potassium chloride, potassium chloride, potassium chloride, potassium phosphate + Sodium Chloride 0.9% IV 250 mL, potassium phosphate + Sodium Chloride 0.9% IV 250 mL, potassium phosphate + Sodium Chloride 0.9% IV 250 mL, potassium phosphate-sodium phosphate (Neutra-Phos), sodium chloride (Saline Flush 0.9%), sodium phosphate + Sodium Chloride 0.9% IV 250 mL, sodium phosphate + Sodium Chloride 0.9% IV 250 mL, sodium phosphate + Sodium Chloride 0.9% IV 250 mL, temazepam (Restoril) One Time Meds: None Continuous Infusions: None I&O Input/Output Record In Out Bal 06/01 24hr Tot 940 0 940 05/31 24hr Tot 810 1850 -1040 VS/Measurements Vital Signs (last 24 hrs) Last Charted Minimum Maximum Temp 98.9 (JUN 02 04:26) L 96.2 (JUN 01 20:00) 98.9 (JUN 02:26) Heart Rate H 108 (JUN 02 05:00) 100 (JUN 01 06:30) H 110 (JUN 02 01:00) Resp Rate 16 (JUN 02 00:00) 16 (JUN 01 09:10) 20 (JUN 01 20:00) SBP 116 (JUN 02 05:00) 92 (JUN 02 04:00) 120 (JUN 02 02:00) DBP 77 (JUN 02 05:00) 63 (JUN 02 04:00) 84 (JUN 01 09:15) General: Mild distress. Eye: Extraocular movements are intact, Normal conjunctiva. HENT: Normal hearing, Oral mucosa is moist. Neck: No carotid bruit, No jugular venous distention. Respiratory: Breath sounds are equal, Symmetrical chest wall expansion. Cardiovascular: No gallop, Good pulses equal in all extremities. Gastrointestinal: Non-distended, Normal bowel sounds. Musculoskeletal No tenderness. No swelling. Neurologic: No focal deficits. Review / Management Results review: Labs (Last four charted values) WBC 7.4 (JUN 02) 7.1 (JUN 01) 8.0 (MAY 31) 7.8 (MAY 30) Hgb L 13.0 (JUN 02) L 12.4 (JUN 01) L 13.1 (MAY 31) L 12.5 (MAY 30) Hct L 38.3 (JUN 02) L 38.2 (JUN 01) L 39.6 (MAY 31) L 37.2 (MAY 30) Plt 254 (JUN 02) 209 (JUN 01) 196 (MAY 31) 183 (MAY 30) Na L 134 (JUN 02) 136 (JUN 01) L 134 (MAY 31) 137 (MAY 30) K 4.0 (JUN 02) 4.1 (JUN 01) 4.2 (MAY 31) 4.1 (MAY 30) CO2 25 (JUN 02) 26 (JUN 01) 24 (MAY 31) 24 (MAY 30) Cl 104 (JUN 02) 103 (JUN 01) 100 (MAY 31) 103 (MAY 30) Cr 0.9 (JUN 02) 0.9 (JUN 01) 1.0 (MAY 31) 0.9 (MAY 30) BUN 16 (JUN 02) 17 (JUN 01) 18 (MAY 31) 16 (MAY 30) Glucose Random H 100 (JUN 02) 91 (JUN 01) 89 (MAY 31) H 103 (MAY 30) Mg 1.8 (JUN 02) 1.9 (JUN 01) 2.0 (MAY 31) 2.2 (MAY 30) Phos 4.1 (JUN 02) 4.4 (JUN 01) 3.6 (MAY 31) 4.2 (MAY 30) Ca 8.7 (JUN 02) 8.6 (JUN 01) L 8.4 (MAY 31) L 8.4 (MAY 30) PT 14.5 (JUN 02) H 15.0 (MAY 29) 14.3 (MAY 28) H 15.0 (MAY 23) INR 1.12 (JUN 02) 1.17 (MAY 29) 1.10 (MAY 28) 1.17 (MAY 23) PTT 32.6 (JUN 02) 32.6 (MAY 29) 32.8 (MAY 28) 32.2 (MAY 23) Troponin 0.03 (MAY 19) 0.03 (MAY 18) CK MB 1.7 (MAY 19) Total CK 134 (MAY 19) 136 (MAY 18) . Impression and Plan 59 year old White man with PMH of Hypothyroidism, HTN, HLD, Moderate CAMMIE, Non-Hodgkin Lymphoma s/p chemotherapy in 1984 and 1986, and Chemoradiation in 1990, CAD ( based on coronary angiogram in 2012 that was mainly non-obstructive but a repeat cath this admission showed 70 % LM disease, 50 % prox LAD and 50% prox Lcx) and cardiomyopathy ( EF of 40-45 % in 2012 now 20-25 %) who is presenting with incr eased SOB on exertion, orthopnea, cough and lower extremity edema for the past 2 weeks consistent with CHF exacerbation likely due to combination of reduced EF from before and severe MR found on Echo. no s/p Mitral lip X3 now with mitral stenosis. #) Acute on chronic systolic heart failure. - DOMINGA showed EF 20-25%, severe mitral regurgitation, moderate TR - Strict I/Os with net negative of 3.4L in last 24 hours - LHC showed 70 % LM disease, 50 % prox LAD and 50% prox Lcx. LVEDP 22-29 - RHC showed PA pressure of 56/34 with mean of 46. RV pressure 53/11. Bedside echo showed EF 35%, limited echo showed EF of 20-25%, will neeed life vest #) Severe MR - S/p Mitral clip surgery: 3 clips placed in mid&medial scallops, moderate mitral regurg, mild-moderate stenosis, area of 1.74cm, gradient of 10. - extubated after procedure. Weaned off inotropes since yesterday afternoon -Patient on hypotensive side. Gave LR X1 of 250cc. BP improving but still tachycardic,om lopressor 12.5 BID #) HTN/HPLD - Atorvastatin 40mg QD - on lopressor 12.5BID #) Hypothyrodism - Resume levothyroxine 125mcg daily #) Chronic lymphedema -R LE >L and erythematous, no open wounds - LE doppler shows no DVT, afebrile, no leukocytosis; monitor and can consider tx for cellulitis although seems unlikely at this time Addendum by Kat Anand MD on 06/02/2014 10:47 ATTENDING ATTESTATION I have seen and examined the patient with the resident. I agree with the assessment and plan as outlined in the note above with the following additions/modifications: -- Doing well post MitraClip -- BP maintained on low dose metoprolol -- Non-sustained VT seen last night. Will start amio. -- Will need LifeVest on account of the low EF. -- Echo reviewed by me. KAT ANAND MD Interventional Cardiology Extracted from:Title: Cardiology History and Physical Author: Home Gillette MD Date: 05/18/14 History and Physical Chief Complaint SOB on exertion, orthopnea, weight gain, increased lower extremity edema, cough for 2 weeks. History of Present Illness 59 year old White man with PMH of Hypothyroidism, HTN, HLD, Moderate CAMMIE, Non-Hodgkin Lymphoma s/p chemotherapy in 1984 and 1986, and Chemoradiation in 1990, non- obstructive CAD ( based on coronary angiogram in 2011) and Non-ischemic cardiomyopathy ( EF of 40-45 % in 2012) who is presenting with increased SOB on exertion, orthopnea, cough and lower extremity edema for the past 2 weeks that started relatively suddenly. He is on lasix 20 mg QD but increased Regarding his heart disease, he recieved 2 cycles of chemotherapy in [facility] in and and when his lymphoma relapsed in , he was told that his heart is already weak from previous chemotherapy and they could not do bone marrow transplant. He recieved chemoradiation at that time. He had an angiogram in [address] Bermeo due to abnomal EKG and Echo ( Q waves in inferior leads and RWMA in the mid inferior wall). Angiogram showed 30 % ostial LM, 30 % mid LM and 20% proximal RCA. No intervention done. Past Medical History Medical : As in HPI Surgery : Left knee surgery Allergies : Possible cough with ACEi Medications : He is unlcear about which medications he is taking. Habits: Smoking : Non-smoker EtOH : Rarely Drugs : Negative Family : No premature cardiac disease in family. Mother of COPD and father of complication of Arthritis treatment. Review Of Systems (-)=Negative,(+)=Positive General: (-) fever, (-) chills, (-) fatigue, (+) weight gain Skin: (-) rash (-)hair loss (-)nail infection HEENT: (-) sore throat (-) nasal congestion (-) vision changes Neck: (-) pain, (-) difficulty swallowing (-) stiffness Heme: (-) bleeding disorder Resp: (+) cough (+) shortness of breath, (+) dyspnea on exertion, (-) wheezing Cardio: (-) chest pain, (-) palpitations(+) lower extremity edema GI: (-) abdominal pain, + abdominal bloating (-) nausea, (-) vomiting, (-) diarrhea, (-) melena : (-) hematuria (-) dysuria Endo: (-) heat intolerance, (-) cold intolerance Neuro: (-) numbness, (-) tingling, (-) seizure (-) headaches (-) Dizziness RAMBO: (-) muscle pain, (-) joint pain Psych: (-) anxiety, (-) depression (-)insomnia Physical Exam Vital Signs Vitals Tmp(F) Tmp(C) Ttype BP MAP Pulse RR SpO2 FIO2 ETCO2 05/18 20:00 ---- ---- ---- 109/67 81 103 20 97 --- --- 05/18 17:08 ---- ---- ---- 110/82 --- 103 26 98 --- --- 05/18 16:18 97.8 36.56 oral 109/78 --- 108 18 96 --- --- 24 Hr Tmax: 97.8F (36.56c) at 05/18 16:18 Vital Signs are the last 5 in the past 48 hours. 24 Hr Tmin: 97.8F (36.56c) at 05/18 16:18 Weights are the last 5 in 60 days, plus initial. Date Wt(kg) Wt(lb) Ht(cm) Ht(in) Method BMI BSA 05/18 (initial) 100.00 220.00 Estimated 29.9 2.25 05/18 182.88 72.00 Stated P/E Gen - NAD, A&O x 3 Head - NC/AT Eyes - PERRLA, EOMI, no icterus Mouth - MMM, no erythema or exudate Heart - RRR, no R/G. 2/6 systolic (?holosystolic) murmur over apex with radiation to the axilla. JVD at 24 cm Lungs - CTAB, no W/R/R Abd - soft / NTND, + BS Ext - B/L lower ext edema, R>L, but has history of lymphedema in the right led due to inguinal LN dissection for lymphoma. Recent doppler US of the right leg showed no DVT Labs 24hr Labs 05/18 1752 BNP 788 H PT 14.0 INR 1.08 PTT 30.9 05/18 1726 Sodium Lvl 138 Potassium Lvl 3.7 Chloride Lvl 100 CO2 26 AGAP 15.7 Glucose Lvl 123 H Creatinine Lvl 1.1 BUN 20 B/C Ratio 18 Total Protein 7.0 Albumin Lvl 3.8 Globulin 3.2 A/G Ratio 1.2 Calcium Lvl 9.0 ALT 57 AST 29 Alk Phos 63 Bili Total 1.4 H eGFR 72 Total CK 136 Troponin-I 0.03 WBC 8.7 RBC 5.18 Hgb 15.0 Hct 47.2 MCV 91.1 MCH 28.9 MCHC 31.7 L RDW 13.3 Platelet 264 MPV 7.8 Segs 76.6 H Monocytes 10.1 Lymphocytes 11.7 L Eosinophils 1.6 Basophils 0.0 Segs-Bands # 6.7 Lymphocytes # 1.0 Monocytes # 0.9 H Eosinophils # 0.1 Basophils # 0.0 RBC Morph Normal Plt Morph Normal Radiology CHEST 2 VIEWS DATE: May 18, 2014 05:50:00 PM INDICATION: Chest pain COMPARISON: Chest 2 views 05/04/2014. TECHNIQUE: PA and lateral radiographs of the chest were obtained. FINDINGS: Small right pleural effusion. Mild central vascular congestion. No focal consolidation or pneumothorax. Unchanged cardiomediastinal silhouette. IMPRESSION: Small right pleural effusion and mild central vascular congestion. Procedures Angiogram in 2011 : LV gram showed mild global hypokinesis with overall ejection fraction 40% to 45%. No mitral regurgitation. There is no gradient across the aortic valve. EDP is 20 mmHg. CORONARY ANGIOGRAPHIC FINDINGS: 1. The left main has 30% ostial stenosis and 30% mid left main disease. 2. Left anterior descending has minimal luminal irregularities. 3. The left circumflex artery has minimal luminal irregularities. 4. Right coronary artery is a dominant vessel which has 20% proximal stenosis. The rest has minimal luminal irregularities. IMPRESSION: Mild cardiomyopathy with mild to moderate left main disease. Assessment 59 year old White man with PMH of Hypothyroidism, HTN, HLD, Moderate CAMMIE, Non-Hodgkin Lymphoma s/p chemotherapy in 1984 and 1986, and Chemoradiation in 1990, non- obstructive CAD ( based on coronary angiogram in 2012) and Non-ischemic cardiomyopathy ( EF of 40-45 % in 2012) who is presenting with increased SOB on exertion, orthopnea, cough and lower extremity edema for the past 2 weeks that started relatively suddenly. His diet is mostly [employer] for breakfast and home cooked food for lunch and dinner. He does add salt to his food. His history and P/E is consistent with systolic CHF exacerbation. His cardiomyopathy is likely 2/2 to chemoradiation as he had mildly depressed EF with non obstructive CAD in 2012 although radiation can also induce CAD, but unsure if his CAD has progressed since his Angiogram in 2011. He has a possible murmur of MR, and given his relatively sudden onset of symptoms I'm concerned about acute/subacute Mitral valve abnormality (chordae tendineae vs papillary muscle dysfunction). Problem List 1. Acute on Chronic systolic heart failure 2. Systolic murmur 3. HTN 4. HLD 5. CAMMIE Plan -- Will start Lasix 40 mg IV Q12 hours in the am. Already got 60 mg IV in the ED. -- Control BP with home Losartan 50 mg QD -- Add BB once more volume is off. -- Will try to get the Echo results from [place] ( had one done today), if unable will do an Echo tomorrow to evaluate Cardiac and Valvular function -- TSH, UDS, A1c and Lipid panel. -- If EF is reduced, will need ischemic workup probably in the form of outpatient stress test with imaging to look for reversible ischemia. 06/02/2014 [facility] Plan of Care No Data Provided for This Section Social History Social History Date Source Social History TypeResponse Substance Abuse Use: None. Employment/School Work/School description: Unemployed. Alcohol Current, Type Beer. Frequency: 1-2 times per month. Smoking Status Former smoker; Stopped at age: 28; Exposure to Tobacco Smoke None; Cigarette Smoking Last 365 Days No; Reg Smoking Cessation Counseling No 06/24/2014 [facility] Social History TypeResponse Substance Abuse Use: None. Employment/School Work/School description: Unemployed. Alcohol Current, Type Beer. Frequency: 1-2 times per month. Smoking Status Former smoker; Stopped at age: 28; Exposure to Tobacco Smoke None; Cigarette Smoking Last 365 Days No; Reg Smoking Cessation Counseling No 06/24/2014 [facility] Family History No Data Provided for This Section Advance Directives No Data Provided for This Section Functional Status No Data Provided for This Section
--- OUTSIDE RECORDS SUMMARY | 2018-10-31 06:03 | XMS REPORT | Summary of Care ---
Author Author [facility] Organization [facility] Address Unknown Phone Unavailable Encounter HQ Ian(BRAYAN) [id number] Date(s): 10/07/14 - 11/05/14 [facility] [address] [place] [address]- Discharge Disposition: Home Attending Physician: Jose Adler MD Referring Physician: Jose Adler MD Vital Signs Most recent to 1 oldest [Reference Range]: Height 182.88 cm (10/07/14 3:42 PM) Most recent to 1 oldest [Reference Range]: Weight 97.273 kg (10/07/14 3:42 PM) Most recent to 1 oldest [Reference Range]: Body Mass Index 29.08 m2 (10/07/14 3:42 PM) Problem List Condition Effective Dates Status Health Status Informant Chronic Resolved CHF(Confirmed) HTN Resolved (hypertension)(Confi rmed) Hyperlipidemia(Confi Resolved rmed) Lymphoma(Confirmed) Resolved Allergies, Adverse Reactions, Alerts Substance Reaction Severity Status NKDA Active Medications No data available for this section Results No data available for this section Immunizations Vaccine Date Refusal Reason pneumococcal 23-valent vaccine 06/26/14 Patient Refuses Procedures Procedure Date Related Diagnosis Body Site H/O knee surgery MVR - Mitral valve repair1 1Mitral valve clips Social History Social History Type Response Substance Abuse Use: None. Employment/School Work/School description: Unemployed. Alcohol Current, Type Beer. Frequency: 1-2 times per month. Smoking Status Former smoker; Stopped at age: 28; Exposure to Tobacco Smoke None; Cigarette Smoking Last 365 Days No; Reg Smoking Cessation Counseling No Assessment and Plan No data available for this section
--- OUTSIDE RECORDS SUMMARY | 2018-10-31 06:03 | XMS REPORT | Summary of Care ---
Author Organization Unknown Address Unknown Phone Unavailable Encounter HQ Enrrique_aishwarya(BRAYAN) [id number] Date(s): 07/02/14 - 07/31/14 [facility] [address] [place] [address]- Discharge Disposition: Home Physician Attending: Jose Adler MD Physician_Referring: Jose Adler MD Vital Signs Most recent to 1 oldest [Reference Range]: Height 182.88 cm (07/02/14 12:17 PM) Weight 97.273 kg (07/02/14 12:17 PM) Body Mass Index 29.08 m2 (07/02/14 12:17 PM) Problem List Condition Effective Dates Status [...]
--- OUTSIDE RECORDS SUMMARY | 2018-10-31 06:03 | XMS REPORT | Summary of Care ---
Author Organization Unknown Address Unknown Phone Unavailable Encounter HQ Encntr_alisilvia([facility]) [id number] Date(s): 05/04/14 - 05/04/14 [facility] Outpatient Imaging - [address] [address]- [place] Discharge Disposition: Home Physician Attending: Елена Capone MD Reason for Visit 786.09 - RESPIRATORY ABN Problem List No data available for this section Allergies, Adverse Reactions, Alerts Substance Reaction Severity Status NKDA Active Medications No data available for this section Medications Administered During Your Visit No data available for this section Immunizations No data available for this section
--- OUTSIDE RECORDS SUMMARY | 2018-10-31 06:03 | XMS REPORT | Summary of Care ---
Author Organization Unknown Address Unknown Phone Unavailable Encounter HQ Ian(BRAYAN) [id number] Date(s): 08/03/14 - 09/01/14 [facility] [address] [place] [address]- Discharge Disposition: Home Physician Attending: Jose Adler MD Physician_Referring: Jose Adler MD Vital Signs Most recent to 1 oldest [Reference Range]: Height 182.88 cm (08/05/14 5:25 PM) Weight 97.273 kg (08/05/14 5:25 PM) Body Mass Index 29.08 m2 (08/05/14 5:25 PM) Problem List Condition Effective Dates Status [...]
--- OUTSIDE RECORDS SUMMARY | 2018-10-31 06:03 | XMS REPORT | Summary of Care ---
Author Organization Unknown Address Unknown Phone Unavailable Encounter HQ Ian(BRAYAN) [id number] Date(s): 06/24/14 - 06/29/14 [facility] [address] [employer] provided by [facility] [place] [address]- Final: Discharge Disposition: Home Physician Attending: Jose Adler MD Physician Admitting: Jose Adler MD Vital Signs 1 2 3 Most recent to oldest [Reference Range]: 182.88 cm (06/24/14 6:37 PM) 182.88 cm (06/24/14 6:14 PM) Height 94.176 kg (06/29/14 5:53 AM) 97.227 kg (06/28/14 6:41 AM) 97.364 kg (06/26/14 5:15 AM) Current Weight 97.8 DegF (06/29/14 9:50 AM) 97.8 DegF (06/29/14 7:50 AM) 97.8 DegF (06/29/14 4:00 AM) Temperature Oral [96.4-99.1 DegF] 87/65 mmHg *LOW* (06/29/14 9:50 AM) 93/72 mmHg (06/29/14 8:00 AM) 107/78 mmHg (06/29/14 7:00 AM) Blood Pressure [90-140/60-90 mmHg] 16 BRMIN (06/29/14 9:50 AM) 16 BRMIN (06/28/14 6:00 AM) 18 BRMIN (06/28/14 1:00 AM) Respiratory Rate [14-20 BRMIN] 104.091 kg (06/24/14 6:37 PM) 103.636 kg (06/24/14 6:14 PM) Weight 31.12 m2 (06/24/14 6:37 PM) 30.99 m2 (06/24/14 6:14 PM) Body Mass Index Problem List Condition Effective Dates Status Health Status Informant Chronic Resolved CHF(Confirmed) HTN Resolved (hypertension)(Confi rmed) Hyperlipidemia(Confi Resolved rmed) Lymphoma(Confirmed) Resolved Allergies, Adverse Reactions, Alerts Substance Reaction Severity Status NKDA Active Medications aspirin 81 mg tablet, enteric coated 81 mg, 1 tab, Route: PO, Drug form: ECTAB, Daily, Dosing Weight 104.091, kg, Sta rt date: 06/25/14 9:00:00, Duration: 30 day, Stop date: 07/24/14 9:00:00 Notes: Do not crush or chew.(Same As: Ecotrin) Start Date: 06/25/14 Stop Date: 06/29/14 Status: Discontinued aspirin 81 mg tablet, enteric coated 81 mg=1 tab, PO, Daily, # 120 tab, 2 Refill(s) Start Date: 06/29/14 Stop Date: 06/29/14 Status: Discontinued aspirin 81 mg tablet, enteric coated 81 mg=1 tab, PO, Daily, # 120 tab, 2 Refill(s) Start Date: 06/29/14 Status: Ordered atorvastatin 40 mg, 1 tab, Route: PO, Drug form: TAB, Bedtime, Dosing Weight 104.091, kg, Sta rt date: 06/24/14 21:00:00, Duration: 30 day, Stop date: 07/23/14 21:00:00 Notes: (Same as: Lipitor) Start Date: 06/24/14 Stop Date: 06/29/14 Status: Discontinued atorvastatin 40 mg oral tablet 40 mg=1 tab, PO, Bedtime, # 60 tab, 3 Refill(s) Start Date: 06/29/14 Stop Date: 06/29/14 Status: Discontinued atorvastatin 40 mg oral tablet 40 mg=1 tab, PO, Bedtime, # 60 tab, 3 Refill(s) Start Date: 06/29/14 Status: Ordered calcium gluconate 500 mg oral tablet 500 mg, 1 tab, Route: PO, Drug form: TAB, ONCE, Dosing Weight 104.091, kg, Start date: 06/26/14 7:11:00, Stop date: 06/26/14 7:11:00 Start Date: 06/26/14 Stop Date: 06/26/14 Status: Completed carvedilol 3.125, PO, BID, 0 Refill(s) Start Date: 06/24/14 Stop Date: 06/29/14 Status: Discontinued carvedilol 3.125 mg, 1 tab, Route: PO, Drug form: TAB, Q12H, Dosing Weight 104.091, kg, Sta rt date: 06/24/14 21:00:00, Duration: 30 day, Stop date: 07/24/14 9:00:00 Notes: Give with food. (Same As: Coreg) Start Date: 06/24/14 Stop Date: 06/25/14 Status: Discontinued carvedilol 12.5 mg oral tablet 12.5 mg=1 tab, PO, Q12H, # 90 tab, 1 Refill(s) Start Date: 06/29/14 Stop Date: 06/29/14 Status: Deleted carvedilol 12.5 mg oral tablet 12.5 mg=1 tab, PO, Q12H, # 60 tab, 0 Refill(s) Start Date: 06/29/14 Status: Ordered clopidogrel 75 mg, 1 tab, Route: PO, Drug form: TAB, Daily, Dosing Weight 104.091, kg, Start date: 06/25/14 9:00:00, Duration: 30 day, Stop date: 07/24/14 9:00:00 Notes: (Same As: Plavix) Start Date: 06/25/14 Stop Date: 06/29/14 Status: Discontinued clopidogrel 75 mg oral tablet 75 mg=1 tab, PO, Daily, # 30 tab, 0 Refill(s) Start Date: 06/29/14 Stop Date: 06/29/14 Status: Deleted clopidogrel 75 mg oral tablet 75 mg=1 tab, PO, Daily, # 30 tab, 0 Refill(s) Start Date: 06/29/14 Status: Ordered Coreg 12.5 mg, 1 tab, Route: PO, Drug form: TAB, Q12H, Dosing Weight 104.091, kg, Star t date: 06/27/14 21:00:00, Duration: 30 day, Stop date: 07/27/14 9:00:00 Notes: Give with food. (Same As: Coreg) Start Date: 06/27/14 Stop Date: 06/29/14 Status: Discontinued Coreg 3.125 mg, 1 tab, Route: PO, Drug form: TAB, ONCE, Dosing Weight 104.091, kg, Sta rt date: 06/25/14 13:54:00, Stop date: 06/25/14 13:54:00 Notes: Give with food. (Same As: Coreg) Start Date: 06/25/14 Stop Date: 06/25/14 Status: Completed Coreg 6.25 mg, 1 tab, Route: PO, Drug form: TAB, Q12H, Dosing Weight 104.091, kg, Star t date: 06/25/14 21:00:00, Duration: 30 day, Stop date: 07/25/14 9:00:00 Notes: Give with food. (Same As: Coreg) Start Date: 06/25/14 Stop Date: 06/25/14 Status: Canceled Coreg 6.25 mg, 1 tab, Route: PO, Drug form: TAB, Q12H, Dosing Weight 104.091, kg, Star t date: 06/25/14 21:00:00, Duration: 30 day, Stop date: 07/25/14 9:00:00 Notes: Give with food. (Same As: Coreg) Start Date: 06/25/14 Stop Date: 06/26/14 Status: Discontinued Coreg 6.25 mg, 1 tab, Route: PO, Drug form: TAB, Q12H, Dosing Weight 104.091, kg, Star t date: 06/26/14 9:47:00, Stop date: 07/26/14 9:00:00 Notes: Give with food. (Same As: Coreg) Start Date: 06/26/14 Stop Date: 06/27/14 Status: Discontinued furosemide 40 mg, 4 mL, Route: IVP, Drug form: INJ, BID, Dosing Weight 104.091, kg, Start d ate: 06/25/14 9:00:00, Duration: 30 day, Stop date: 07/24/14 17:00:00 Notes: (Same as: Lasix) Start Date: 06/25/14 Stop Date: 06/25/14 Status: Discontinued heparin 7,500 unit, 1.5 mL, Route: SUB-Q, Drug form: INJ, Q8H, Dosing Weight 104.091, kg , Start date: 06/25/14 0:00:00, Duration: 30 day, Stop date: 07/24/14 16:00:00 Notes: porcine heparin Start Date: 06/25/14 Stop Date: 06/29/14 Status: Discontinued Lasix 40 mg, Route: PO, Drug form: TAB, BID, Dosing Weight 104.091, kg, Start date: 23:45:00, Duration: 30 day, Stop date: 07/25/14 17:00:00 Start Date: 06/25/14 Stop Date: 06/24/14 Status: Canceled Lasix 20 mg oral tablet 20 mg=1 tab, PO, Daily, # 30 tab, 0 Refill(s) Start Date: 06/24/14 Stop Date: 06/29/14 Status: Discontinued Lasix 40 mg oral tablet 40 mg, 1 tab, Route: PO, Drug form: TAB, Daily, Dosing Weight 104.091, kg, Start date: 06/27/14 9:00:00, Duration: 30 day, Stop date: 07/26/14 9:00:00 Notes: (Same as: Lasix) May cause GI upset. Give with food or milk. Start Date: 06/27/14 Stop Date: 06/29/14 Status: Discontinued Lasix 40 mg oral tablet 40 mg=1 tab, PO, Daily, # 30 tab, 0 Refill(s) Start Date: 06/29/14 Status: Ordered Lasix 40 mg oral tablet 40 mg=1 tab, PO, Daily, # 30 tab, 0 Refill(s) Start Date: 06/29/14 Stop Date: 06/29/14 Status: Deleted Lasix 40 mg oral tablet 40 mg, 1 tab, Route: PO, Drug form: TAB, BID, Dosing Weight 104.091, kg, Start d ate: 06/25/14 17:00:00, Duration: 30 day, Stop date: 07/25/14 9:00:00 Notes: (Same as: Lasix) May cause GI upset. Give with food or milk. Start Date: 06/25/14 Stop Date: 06/26/14 Status: Discontinued levothyroxine 125 microgram, 1 tab, Route: PO, Drug form: TAB, Q630AM, Dosing Weight 104.091, kg, Start date: 06/25/14 6:30:00, Duration: 30 day, Stop date: 07/24/14 6:30:00 Notes: Take 1 hour before or 2 hours after meal; Enteral feeds may interefere wi th the absorption of this medication. (Same as:Levothroid) Start Date: 06/25/14 Stop Date: 06/29/14 Status: Discontinued levothyroxine 125 mcg (0.125 mg) oral tablet 125 microgram=1 tab, PO, Daily, # 60 tab, 1 Refill(s) Start Date: 06/29/14 Status: Ordered levothyroxine 125 mcg (0.125 mg) oral tablet 125 microgram=1 tab, PO, Daily, # 60 tab, 1 Refill(s) Start Date: 06/29/14 Stop Date: 06/29/14 Status: Discontinued lisinopril 5 mg, Route: PO, Drug form: TAB, Daily, Dosing Weight 104.091, kg, Start date: 0 06/25/14 23:00:00, Duration: 30 day, Stop date: 07/25/14 9:00:00 Start Date: 06/25/14 Stop Date: 06/25/14 Status: Canceled lisinopril 2.5 mg, 1 tab, Route: PO, Drug form: TAB, ONCE, Dosing Weight 104.091, kg, Start date: 06/25/14 14:35:00, Stop date: 06/25/14 14:35:00 Notes: (Same as: Prinivil) Start Date: 06/25/14 Stop Date: 06/25/14 Status: Completed lisinopril 5 mg, 1 tab, Route: PO, Drug form: TAB, Q12H, Dosing Weight 104.091, kg, Start d ate: 06/25/14 21:00:00, Duration: 30 day, Stop date: 07/25/14 9:00:00 Notes: (Same as: Prinivil, Zestril) Start Date: 06/25/14 Stop Date: 06/27/14 Status: Discontinued lisinopril 5 mg, 1 tab, Route: PO, Drug form: TAB, Q12H, Dosing Weight 104.091, kg, Start d ate: 06/25/14 21:00:00, Duration: 30 day, Stop date: 07/25/14 9:00:00 Notes: (Same as: Prinivil, Zestril) Start Date: 06/25/14 Stop Date: 06/25/14 Status: Canceled lisinopril 2.5 mg, 1 tab, Route: PO, Drug form: TAB, ONCE, Dosing Weight 104.091, kg, Start date: 06/25/14 13:11:00, Stop date: 06/25/14 13:11:00 Notes: (Same as: Prinivil) Start Date: 06/25/14 Stop Date: 06/25/14 Status: Completed lisinopril 5 mg, Route: PO, Drug form: TAB, BID, Dosing Weight 104.091, kg, Start date: 23:00:00, Duration: 30 day, Stop date: 07/25/14 17:00:00 Start Date: 06/25/14 Stop Date: 06/25/14 Status: Canceled lisinopril 2.5 mg, 1 tab, Route: PO, Drug form: TAB, Q12H, Dosing Weight 104.091, kg, Start date: 06/27/14 21:00:00, Duration: 30 day, Stop date: 07/27/14 9:00:00 Notes: (Same as: Prinivil) Start Date: 06/27/14 Stop Date: 06/29/14 Status: Discontinued lisinopril 2.5 mg oral tablet 2.5 mg=1 tab, PO, Q12H, # 60 tab, 0 Refill(s) Start Date: 06/29/14 Status: Ordered lisinopril 2.5 mg oral tablet 2.5 mg=1 tab, PO, Q12H, # 60 tab, 0 Refill(s) Start Date: 06/29/14 Stop Date: 06/29/14 Status: Deleted magnesium oxide 400 mg, 1 tab, Route: PO, Drug form: TAB, ONCE, Dosing Weight 104.091, kg, Start date: 06/25/14 6:56:00, Stop date: 06/25/14 6:56:00 Notes: (Same as: Mag-Ox 400)Magnesium oxide [id number] elemental magnesiumDose= ____mg magnesium oxide (___mg elemental magnesium) Start Date: 06/25/14 Stop Date: 06/25/14 Status: Completed magnesium oxide 400 mg, 1 tab, Route: PO, Drug form: TAB, ONCE, Dosing Weight 104.091, kg, Start date: 06/26/14 6:34:00, Stop date: 06/26/14 6:34:00 Notes: (Same as: Mag-Ox 400)Magnesium oxide [id number] elemental magnesiumDose= ____mg magnesium oxide (___mg elemental magnesium) Start Date: 06/26/14 Stop Date: 06/26/14 Status: Completed magnesium sulfate 2 gm, Route: IVPB, Drug form: INJ, Q2H, Dosing Weight 104.091, kg, Total dose=4 gm, Start date: 06/27/14 6:00:00, Duration: 2 doses or times, Stop date: 5 8:00:00 Start Date: 06/27/14 Stop Date: 06/27/14 Status: Canceled magnesium sulfate 2 gm, 50 mL, Route: IVPB, Drug form: INJ, ONCE, Dosing Weight 104.091, kg, Total dose=2 gm, Start date: 06/29/14 6:36:00, Duration: 1 doses or times, Stop date: 06/29/14 6:36:00 Start Date: 06/29/14 Stop Date: 06/29/14 Status: Completed metoprolol tartrate 12.5 mg, 1 tab, Route: PO, Drug form: TAB, Q12H, Dosing Weight 104.091, kg, Star t date: 06/24/14 21:00:00, Duration: 30 day, Stop date: 07/24/14 9:00:00 Notes: (Same as: Lopressor) 12.5mg=1/4 X 50 mg tab. Start Date: 06/24/14 Stop Date: 06/24/14 Status: Discontinued nitroglycerin SL Tab 0.4 mg, 1 tab, Route: SL, Drug form: TAB, Q5Min, Dosing Weight 104.091, kg, PRN Chest Pain, Start date: 06/24/14 19:04:00, Duration: 3 doses or times, Stop date : Limited # of times Notes: (Same as:Nitroquick, Nitrostat)"Do Not Crush" Sublingual tablet Start Date: 06/24/14 Stop Date: 06/29/14 Status: Discontinued pneumococcal 23-valent vaccine 0.5 ml, Route: IM, Drug Form: INJ, Daily, Start date: 06/25/14 9:00:00, Duration : 1 doses or times, Stop date: 06/25/14 9:00:00 Notes: (Same as: Pneumovax 23) Refrigerate Start Date: 06/25/14 Stop Date: 06/25/14 Status: Completed potassium chloride 20 mEq oral tablet, extended release 20 mEq, 1 tab, Route: PO, Drug form: ERTAB, ONCE, Dosing Weight 104.091, kg, Sta rt date: 06/26/14 6:34:00, Stop date: 06/26/14 6:34:00 Notes: (Same as: K-Dur 20)"Do Not Crush" With food and full glass of water Start Date: 06/26/14 Stop Date: 06/26/14 Status: Completed potassium chloride 20 mEq/15 mL oral liquid 20 mEq, 15 mL, Route: PO, Drug form: LIQ, ONCE, Dosing Weight 104.091, kg, Start date: 06/25/14 6:56:00, Stop date: 06/25/14 6:56:00 Notes: (Same as: Potassium Chloride) Start Date: 06/25/14 Stop Date: 06/25/14 Status: Completed ProAir HFA 90 mcg/inh inhalation aerosol with adapter 180 microgram, Route: INHALATION, Drug Form: AERO/A, Dosing Weight 104.091, kg, Q4H, PRN as needed for wheezing, Start date: 06/24/14 19:00:00, Duration: 30 day , Stop date: 07/24/14 18:59:00 Notes: Albuterol 90 microgram/inh 8gm HFA Same as: Ventwilmer Proventil Start Date: 06/24/14 Stop Date: 06/29/14 Status: Discontinued spironolactone 25 mg, 1 tab, Route: PO, Drug form: TAB, Daily, Dosing Weight 104.091, kg, Start date: 06/26/14 9:00:00, Duration: 30 day, Stop date: 07/25/14 9:00:00 Notes: (Same As: Aldactone) Start Date: 06/26/14 Stop Date: 06/29/14 Status: Discontinued spironolactone 25 mg oral tablet 25 mg=1 tab, PO, Daily, # 30 tab, 0 Refill(s) Start Date: 06/29/14 Status: Ordered Results ELECTROLYTES 1 2 3 Most recent to oldest [Reference Range]: 135 mEq/L (06/29/14:17 AM) 139 mEq/L (06/28/14 5:09 AM) 138 mEq/L (06/27/14 6:05 AM) Sodium Lvl [135-145 mEq/L] 4.8 mEq/L (06/29/14:17 AM) 4.4 mEq/L (06/28/14 5:09 AM) 4.1 mEq/L (06/27/14 6:05 AM) Potassium Lvl [3.5-5.1 mEq/L] 104 mEq/L (06/29/14:17 AM) 105 mEq/L (06/28/14 5:09 AM) 102 mEq/L (06/27/14 6:05 AM) Chloride Lvl [95-109 mEq/L] 24 mEq/L (06/29/14:17 AM) 25 mEq/L (06/28/14 5:09 AM) 24 mEq/L (06/27/14 6:05 AM) CO2 [24-32 mEq/L] 11.8 mEq/L (06/29/14:17 AM) 13.4 mEq/L (06/28/14 5:09 AM) 16.1 mEq/L (06/27/14 6:05 AM) AGAP [10.0-20.0 mEq/L] CHEM PANEL 1 2 3 Most recent to oldest [Reference Range]: 1.0 mg/dL (06/29/14:17 AM) 0.9 mg/dL (06/28/14 5:09 AM) 0.9 mg/dL (06/27/14 6:05 AM) Creatinine Lvl [0.5-1.4 mg/dL] 81 mL/min/1.73m2 1 *NA* (06/29/14:17 AM) 92 mL/min/1.73m2 2 *NA* (06/28/14 5:09 AM) 92 mL/min/1.73m2 3 *NA* (06/27/14 6:05 AM) eGFR 17 mg/dL (06/29/14 5:17 AM) 17 mg/dL (06/28/14 5:09 AM) 17 mg/dL (06/27/14 6:05 AM) BUN [7-22 mg/dL] 77 mg/dL 4 (06/29/14 5:17 AM) 79 mg/dL 5 (06/28/14 5:09 AM) 97 mg/dL 6 (06/27/14 6:05 AM) Glucose Lvl [70-99 mg/dL] See Note (06/24/14 8:16 PM) Total Protein [6.4-8.4] See Note (06/24/14 8:16 PM) Albumin Lvl [3.5-5.0] See Note (06/24/14 8:16 PM) Globulin [2.0-4.0] See Note (06/24/14 8:16 PM) A/G Ratio [0.7-1.6] 9.0 mg/dL (06/29/14 5:17 AM) 8.7 mg/dL (06/28/14 5:09 AM) 8.6 mg/dL (06/27/14 6:05 AM) Calcium Lvl [8.5-10.5 mg/dL] 3.8 mg/dL (06/29/14 5:17 AM) 4.1 mg/dL (06/28/14 5:09 AM) 4.0 mg/dL (06/27/14 6:05 AM) Phosphorus [2.5-4.5 mg/dL] 1.9 mg/dL (06/29/14 5:17 AM) 2.0 mg/dL (06/28/14 5:09 AM) 2.0 mg/dL (06/27/14 6:05 AM) Magnesium Lvl [1.8-2.4 mg/dL] See Note 7 (06/24/14 8:16 PM) ALT [0-65] See Note (06/24/14 8:16 PM) AST [0-37] See Note (06/24/14 8:16 PM) Alk Phos [39-136] 1.1 mg/dL (06/24/14 8:16 PM) Bili Total [0.2-1.3 mg/dL] 0.1 mg/dL (06/24/14 8:16 PM) Bili Direct [0.0-0.3 mg/dL] 1.0 mg/dL (06/24/14 8:16 PM) Bili Indirect [0.0-1.0 mg/dL] 1Result Comment: The eGFR is calculated using the CKD-EPI formula. In most young, healthy individuals the eGFR will be >90 mL/min/1.73m2. The eGFR declines with age. An eGFR of 60-89 may be normal in some populations, particularly the elderly, for whom the CKD-EPI formula has not been extensively validated. Use of the eGFR is not recommended in the following populations: Individuals with unstable creatinine concentrations, including patients and those with serious co-morbid conditions. Patients with extremes in muscle mass or diet. The data above are obtained from the National Kidney Disease Education Program ( NKDEP) which additionally recommends that when the eGFR is used in patients with extremes of body mass index for purposes of drug dosing, the eGFR should be mul tiplied by the estimated BMI. 2Result Comment: The eGFR is calculated using the CKD-EPI formula. In most young, healthy individuals the eGFR will be >90 mL/min/1.73m2. The eGFR declines with age. An eGFR of 60-89 may be normal in some populations, particularly the elderly, for whom the CKD-EPI formula has not been extensively validated. Use of the eGFR is not recommended in the following populations: Individuals with unstable creatinine concentrations, including patients and those with serious co-morbid conditions. Patients with extremes in muscle mass or diet. The data above are obtained from the National Kidney Disease Education Program ( NKDEP) which additionally recommends that when the eGFR is used in patients with extremes of body mass index for purposes of drug dosing, the eGFR should be mul tiplied by the estimated BMI. 3Result Comment: The eGFR is calculated using the CKD-EPI formula. In most young, healthy individuals the eGFR will be >90 mL/min/1.73m2. The eGFR declines with age. An eGFR of 60-89 may be normal in some populations, particularly the elderly, for whom the CKD-EPI formula has not been extensively validated. Use of the eGFR is not recommended in the following populations: Individuals with unstable creatinine concentrations, including patients and those with serious co-morbid conditions. Patients with extremes in muscle mass or diet. The data above are obtained from the National Kidney Disease Education Program ( NKDEP) which additionally recommends that when the eGFR is used in patients with extremes of body mass index for purposes of drug dosing, the eGFR should be mul tiplied by the estimated BMI. 4Interpretive Data: Adult reference range values reflect the clinical guidelines of the [place] [employer]. 5Interpretive Data: Adult reference range values reflect the clinical guidelines of the [place] [employer]. 6Interpretive Data: Adult reference range values reflect the clinical guidelines of the [place] [employer]. 7Result Comment: called wilder dottie 06/24/2014 22:16 for recollection 06/24/2014 22:16..mc Specimen Grossly Hemolyzed. inst err.. CARDIAC ENZYMES 1 2 3 Most recent to oldest [Reference Range]: 85 unit/L (06/25/14 1:45 AM) Total CK [12-191 unit/L] 1.5 ng/mL (06/25/14 1:45 AM) CK MB [0.5-3.6 ng/mL] 1.8 (06/25/14 1:45 AM) CK MB Index [0.0-2.5] <0.010 ng/mL (06/25/14 1:45 AM) Troponin-T [0.000-0.100 ng/mL] 0.02 ng/mL (06/27/14 6:05 AM) 0.03 ng/mL (06/25/14 1:45 AM) Troponin-I [0.00-0.40 ng/mL] 1900 pg/mL 8 *HI* (06/25/14 1:45 AM) BNP [<=100 pg/mL] 8Interpretive Data: Elevated results are in line with increasing severity of congestive heart failure. Minor elevations between 100 and 300 may be seen with Myocardial Ischemia, Sodium retaining drugs, and compensated/treated heart failure. SPECIAL CHEMISTRY 1 2 3 Most recent to oldest [Reference Range]: 6.2 % *HI* (06/24/14 8:16 PM) Hgb A1C [<=5.6 %] PARATHYROID PROFILE 1 2 3 Most recent to oldest [Reference Range]: 1.06 mMol/L (06/29/14 5:17 AM) 0.94 mMol/L *LOW* (06/27/14 6:05 AM) 1.01 mMol/L *LOW* (06/26/14 4:52 AM) Ca Ion WB [1.05-1.25 mMol/L] 1.07 mMol/L (06/29/14 5:17 AM) 0.98 mMol/L *LOW* (06/27/14 6:05 AM) 1.04 mMol/L *LOW* (06/26/14 4:52 AM) Ca Norm WB [1.05-1.25 mMol/L] DRUG SCREEN 1 2 3 Most recent to oldest [Reference Range]: Negative *NA* (06/24/14 9:26 PM) U Amph Scr [Negative] Negative *NA* (06/24/14 9:26 PM) U Kimmy Scr [Negative] Negative *NA* (06/24/14 9:26 PM) U Benzodia Scr [Negative] Negative *NA* (06/24/14 9:26 PM) U Cocaine Scr [Negative] Negative *NA* (06/24/14 9:26 PM) U Opiate Scr [Negative] Negative *NA* (06/24/14 9:26 PM) U Phencyc Scr [Negative] Negative *NA* (06/24/14 9:26 PM) U Cannab Scr [Negative] See Note 9 *NA* (06/24/14 9:26 PM) UDS Note 9Interpretive Data: Drugs reported as positive have not [...] Methadone 300 ng/mL Urine alcohol 20 mg/dL URINE AND STOOL 1 2 3 Most recent to oldest [Reference Range]: Clear (06/24/14 9:26 PM) UA Turbidity [Clear] Yellow *NA* (06/24/14 9:26 PM) UA Color [Yellow] 5.5 (06/24/14 9:26 PM) UA pH [5.0-8.0] 1.021 (06/24/14 9:26 PM) UA Spec Grav [<=1.030] Negative mg/dL *NA* (06/24/14 9:26 PM) UA Glucose [Negative mg/dL] Negative (06/24/14 9:26 PM) UA Blood [Negative] Negative mg/dL *NA* (06/24/14 9: PM) UA Ketones [Negative mg/dL] 100 mg/dL *ABN* (06/24/14 9:26 PM) UA Protein [Negative mg/dL] <=1.0 mg/dL *NA* (06/24/14 9:26 PM) UA Urobilinogen [0.1-1.0 mg/dL] Negative *NA* (06/24/14 9:26 PM) UA Bili [Negative] Negative (06/24/14 9:26 PM) UA Leuk Est [Negative] Negative (06/24/14 9:26 PM) UA Nitrite [Negative] <1 /HPF (06/24/14 9:26 PM) UA WBC [0-5 /HPF] <1 /HPF (06/24/14 9:26 PM) UA RBC [0-2 /HPF] None Seen *NA* (06/24/14 9:26 PM) UA Sq Epi Few /LPF *NA* (06/24/14 9:26 PM) UA Mucus [None Seen /LPF] HEMATOLOGY 1 2 3 Most recent to oldest [Reference Range]: 5.2 K/CMM (06/29/14 5:17 AM) 4.8 K/CMM (06/28/14 5:09 AM) 4.6 K/CMM (06/27/14 6:05 AM) WBC [3.7-10.4 K/CMM] 4.85 M/CMM (06/29/14 5:17 AM) 4.54 M/CMM *LOW* (06/28/14 5:09 AM) 4.71 M/CMM (06/27/14 6:05 AM) RBC [4.70-6.10 M/CMM] 13.4 g/dL *LOW* (06/29/14:17 AM) 13.0 g/dL *LOW* (06/28/14 5:09 AM) 13.1 g/dL *LOW* (06/27/14 6:05 AM) Hgb [14.0-18.0 g/dL] 41.7 % *LOW* (06/29/14:17 AM) 38.8 % *LOW* (06/28/14:09 AM) 40.7 % *LOW* (06/27/14 6:05 AM) Hct [42.0-54.0 %] 86.0 fL (06/29/14:17 AM) 85.4 fL (06/28/14 5:09 AM) 86.4 fL (06/27/14 6:05 AM) MCV [80.0-94.0 fL] 27.7 pg (06/29/14:17 AM) 28.6 pg (06/28/14 5:09 AM) 27.9 pg (06/27/14:05 AM) MCH [27.0-31.0 pg] 32.2 g/dL (06/29/14:17 AM) 33.5 g/dL (06/28/14 5:09 AM) 32.2 g/dL (06/27/14:05 AM) MCHC [32.0-36.0 g/dL] 15.0 % *HI* (06/29/14:17 AM) 14.5 % (06/28/14 5:09 AM) 15.1 % *HI* (06/27/14:05 AM) RDW [11.5-14.5 %] 208 K/CMM (06/29/14:17 AM) 198 K/CMM (06/28/14 5:09 AM) 177 K/CMM (06/27/14 6:05 AM) Platelet [133-450 K/CMM] 7.6 fL (3/30/15 5:17 AM) 7.4 fL (06/28/14 5:09 AM) 7.7 fL (06/27/14 6:05 AM) MPV [7.4-10.4 fL] 64.5 % (06/29/14 5:17 AM) 63.2 % (06/28/14 5:09 AM) 69.7 % (06/27/14 6:05 AM) Segs [45.0-75.0 %] 19.0 % *LOW* (06/29/14:17 AM) 20.3 % (06/28/14 5:09 AM) 15.3 % *LOW* (06/27/14 6:05 AM) Lymphocytes [20.0-40.0 %] 12.5 % *HI* (06/29/14:17 AM) 12.7 % *HI* (06/28/14 5:09 AM) 11.5 % (06/27/14 6:05 AM) Monocytes [2.0-12.0 %] 2.7 % (06/29/14:17 AM) 2.9 % (06/28/14 5:09 AM) 2.6 % (06/27/14 6:05 AM) Eosinophils [0.0-4.0 %] 1.3 % *HI* (06/29/14:17 AM) 0.9 % (06/28/14 5:09 AM) 0.9 % (06/27/14 6:05 AM) Basophils [0.0-1.0 %] 3.3 K/CMM (06/29/14:17 AM) 3.0 K/CMM (06/28/14 5:09 AM) 3.2 K/CMM (06/27/14 6:05 AM) Segs-Bands # [1.5-8.1 K/CMM] 1.0 K/CMM (06/29/14:17 AM) 1.0 K/CMM (06/28/14 5:09 AM) 0.7 K/CMM *LOW* (06/27/14 6:05 AM) Lymphocytes # [1.0-5.5 K/CMM] 0.6 K/CMM (06/29/14 5:17 AM) 0.6 K/CMM (06/28/14 5:09 AM) 0.5 K/CMM (06/27/14 6:05 AM) Monocytes # [0.0-0.8 K/CMM] 0.1 K/CMM (06/29/14 5:17 AM) 0.1 K/CMM (06/28/14 5:09 AM) 0.1 K/CMM (06/27/14 6:05 AM) Eosinophils # [0.0-0.5 K/CMM] 0.1 K/CMM (06/29/14 5:17 AM) 0.1 K/CMM (06/26/14 4:52 AM) 0.1 K/CMM (06/25/14 1:45 AM) Basophils # [0.0-0.2 K/CMM] 14.9 seconds *HI* (06/24/14 8:16 PM) PT [12.0-14.7 seconds] 1.16 10 (06/24/14 8:16 PM) INR [0.85-1.17] 30.1 seconds 11 (06/25/14 1:45 AM) 26.7 seconds 12 (06/24/14 8:16 PM) PTT [22.9-35.8 seconds] 10Interpretive Data: RECOMMENDED RANGES FOR PROTIME INR: 2.0-3.0 for most medical and surgical thromboembolic states. 2.5-3.5 for artificial heart valves and recurrent embolism. INR SHOULD BE USED ONLY FOR PATIENTS ON STABLE ANTICOAGULANT THERAPY. 11Interpretive Data: Heparin Therapeutic Range: 57 - 92 Seconds 12Interpretive Data: Heparin Therapeutic Range: 57 - 92 Seconds Immunizations Vaccine Date Refusal Reason pneumococcal 23-valent [...] Smoking Cessation Counseling No Assessment and Plan Extracted from: Title: [facility] Discharge summary Author: Carrie Cruz MD Date: 06/29/14 Discharge Summary Name: Hunter Escobar Record Number: [id number] Admission Date: 06/25/14 Discharge Date: 06/29/14 Diagnoses: Acute on chronic CHF CM HTN Hypothyroidism Chronic lymphedema Procedures: Echo and sub max stress test Chief Complaint HPI: 59 year old male pmhx of hypothyroidism, hyperlipidemia, hypertension, obstructive sleep apnea, NHL s/p chemo in 85, 87), non-obstructive CAD, non-ischemic cardiomyopathy presents with increased shorthess of breath and fatigue. Patient was recently discharged from [facility] s/p mitral valve clipping x 3 [...] signficant physical findings: none Recent significant lab & radiology results:will follow up with Dr. Adler [...] plans above except for the following: Extracted from: Title: [facility] progress note Author: Carrie Cruz MD Date: 06/29/14 Progress Note - Daily [facility] Completed: Sunday, JUN 29, 2014, 05:47 by Carrie Cruz MD RM: BREN[facility] - [address], [facility] S[facility] [id number] (: 1955) M Attending: Jose Adler MDPhone: Service: Cardiology Service Reason for Admission: ACUTE [...] today. OBJECTIVE 24hr Labs 06/28 0509 Glucose Lvl79 BUN17 Creatinine Lvl0.9 Sodium Aol697 Potassium Lvl4.4 Chloride Zhp406 CO225 AGAP13.4 Calcium Lvl8.7 eGFR92 Magnesium Lvl2.0 Phosphorus4.1 WBC4.8 RBC4.54 L Hgb13.0 L Hct38.8 L MCV85.4 MCH28.6 MCHC33.5 RDW14.5 Utfligvg735 MPV7.4 Segs63.2 Wunaxygql29.7 H Uknfrtiggzl13.3 Eosinophils2.9 Basophils0.9 Segs-Bands #3.0 Lymphocytes #1.0 Monocytes #0.6 Eosinophils #0.1 Fry still necessary (Yes/No): Line still necessary (Yes/No): VitalsTmp(F)[id number] 06/29 05:00----8287/65-------- 06/29 04:0097.80535/65-------- 06/29 03:00----8058/39-------- 06/29 02:00----8463/42-------- 06/29 01:00----56368/76-------- 24 Hr Tmax: 97.8F (36.56c) at 06/29 04:00Vital Signs are the last 5 in the past 48 hours. DateWt(kg)Wt(lb)Ht(cm)Ht(in)Method 06/28 97.23 213.90Measured 06/26 97.36 214.20Measured 06/24 (initial)103.64 228.00Measured 82.88 72.00Stated I&ORecordInOutBal 4hr Tot 630 [id number] 4hr Tot 700 700 0 Medications (11) Active [...] grossly intact, no focal deficits appreciated ASSESSMENT & EXAM 59 year old male pmhx of [...] to be reviewed by Dr. Adler! Addendum AM labs returned. Magnesium will be replaced 2g IV as patient is NPO for now. by Hyperkalemia at 4.8 with no telemetry changes- likely 2/2 spironolactone- monitor Carrie Cruz MD on 06/29/2014 06:40 Addendum I have seen and examined the patient with the Resident/Fellow. by I agree with the findings and plans above except for the following: Vitor, Awaiting sub-max stress test. Jose Hood Tolerating coco and Beta Jody. on HR and BP in good range. 06/29/2014 Prob D/C today. 08:02 Extracted from: Title: Cardiology History and Author: Matthew Alicea MD Date: 06/25/14 Physical Impression and Plan 59 year old male [...]
--- OUTSIDE RECORDS SUMMARY | 2018-10-31 06:03 | XMS REPORT | Summary of Care ---
Author Organization Unknown Address Unknown Phone Unavailable Encounter HQ Ian(BRAYAN) [id number] Date(s): 05/18/14 - 06/02/14 [facility] [address] [facility] provided by [employer] [place] [address]- Discharge Disposition: Home Physician Attending: Jose Adler MD Physician Admitting: Kat Anand MD Vital Signs 1 2 3 Most recent to oldest [Reference Range]: 182.88 cm (05/18/14 10:44 PM) 182.88 cm (05/18/14 4:18 PM) Height 96.682 kg (05/24/14 10:06 AM) 98.75 kg (05/22/14 6:38 AM) 100.409 kg (05/21/14 5:51 AM) Current Weight 96.9 DegF (06/02/14 3:54 PM) 96.8 DegF (06/02/14 11:44 AM) 98.9 DegF (06/02/14 8:13 AM) Temperature Oral [96.4-99.1 DegF] 95/75 mmHg (06/02/14 1:06 PM) 93/61 mmHg (06/02/14 12:45 PM) 95/71 mmHg (06/02/14 11:44 AM) Blood Pressure [90-140/60-90 mmHg] 18 BRMIN (06/02/14 1:06 PM) 20 BRMIN (06/02/14 12:45 PM) 18 BRMIN (06/02/14 11:44 AM) Respiratory Rate [14-20 BRMIN] 103 bpm *HI* (05/18/14 5:08 PM) 108 bpm *HI* (05/18/14 4:18 PM) Peripheral Pulse Rate [60-100 bpm] 98.7 kg (05/23/14 5:19 AM) 100.909 kg (05/18/14 10:44 PM) 100 kg (05/18/14 4:18 PM) Weight 30.17 m2 (05/18/14 10:44 PM) 29.9 m2 (05/18/14 4:18 PM) Body Mass Index Problem List Condition Effective Dates Status Health Status Informant HTN Resolved (hypertension)(Confi rmed) Hyperlipidemia(Confi Resolved rmed) Lymphoma(Confirmed) Resolved Allergies, Adverse Reactions, Alerts Substance Reaction Severity Status NKDA Active Medications AMIODarone 400 mg, 2 tab, Route: PO, Drug form: TAB, BID, Dosing Weight 98.7, kg, Start perla e: 06/02/14 17:00:00, Duration: 30 day, Stop date: 07/02/14 9:00:00 Notes: (Same as: Cordarone) Start Date: 06/02/14 Stop Date: 06/02/14 Status: Discontinued AMIODarone + Dextrose 5% in Water 100 mL 150 mg, 3 mL, Route: IVPB, ONCE, Dosing Weight 98.7, kg, Start date: 06/02/14 12 :01:00, Stop date: 06/02/14 12:01:00 Notes: Central administration only for concentrations > 2 mg/ml."Recommendation: Use an in-line filter during administration for continuous infusions to reduce the incidence of phlebitis" (Same as: Cordarone) Start Date: 06/02/14 Stop Date: 06/02/14 Status: Completed AMIODarone 200 mg oral tablet 400 mg=2 tab, PO, BID, # 60 tab, 0 Refill(s) Start Date: 06/02/14 Status: Ordered amLODIPine 10 mg oral tablet 10 mg=1 tab, PO, Daily, # 30 tab, 0 Refill(s) Start Date: 05/19/14 Stop Date: 06/02/14 Status: Discontinued aspirin 81 mg tablet, enteric coated 81 mg, 1 tab, Route: PO, Drug form: ECTAB, Daily, Dosing Weight 100, kg, Start d ate: 05/19/14 9:00:00, Duration: 30 day, Stop date: 06/17/14 9:00:00 Notes: Do not crush or chew.(Same As: Ecotrin) Start Date: 05/19/14 Stop Date: 06/02/14 Status: Discontinued aspirin 81 mg tablet, enteric coated 81 mg=1 tab, PO, Daily, # 120 tab, 2 Refill(s) Start Date: 06/02/14 Status: Ordered Ativan 1 mg, 0.5 mL, Route: IVP, Drug form: INJ, ONCE, Dosing Weight 100.909, kg, PRN A nxiety, Start date: 05/21/14 11:06:00 Notes: (Same as: Ativan) Start Date: 05/21/14 Stop Date: 06/02/14 Status: Discontinued Ativan 0.5 mg, 0.25 mL, Route: IVP, Drug form: INJ, ONCE, Dosing Weight 100.909, kg, St art date: 05/21/14 1:50:00, Stop date: 05/21/14 1:50:00 Notes: (Same as: Ativan) Start Date: 05/21/14 Stop Date: 05/21/14 Status: Completed atorvastatin 40 mg, 1 tab, Route: PO, Drug form: TAB, Bedtime, Dosing Weight 100.909, kg, Sta rt date: 05/20/14 21:00:00, Duration: 30 day, Stop date: 06/18/14 21:00:00 Notes: (Same as: Lipitor) Start Date: 05/20/14 Stop Date: 06/02/14 Status: Discontinued atorvastatin 40 mg oral tablet 40 mg=1 tab, PO, Bedtime, # 60 tab, 3 Refill(s) Start Date: 06/02/14 Status: Ordered bisacodyl 10 mg, 1 supp, Route: GA, Drug form: SUPP, Q24H, Dosing Weight 98.7, kg, PRN Con stipation, Start date: 05/28/14 10:24:00, Duration: 30 day, Stop date: 06/27/14 10:23:00 Notes: (Same As: Dulcolax, Bisco-Lax) Start Date: 05/28/14 Stop Date: 06/02/14 Status: Discontinued calcium carbonate 500 mg (200 mg elemental calcium) oral tablet 500 mg=1 tab, PO, PRN, Abnormal Lab Result, # 60 tab, 0 Refill(s) Start Date: 06/02/14 Status: Ordered calcium carbonate 500 mg (200 mg elemental calcium) oral tablet 500 mg, 1 tab, Route: PO, Drug form: CHEWTAB, PRN, Dosing Weight 98.7, kg, PRN A bnormal Lab Result, FOR ICU USE ONLY, Start date: 05/23/14 11:30:00, Duration: 3 0 day, Stop date: 06/22/14 12:29:00 Notes: (Same As: Gulshans)Calcium Carbonate 500 ns=506 mg elemental calcium Dose=_ mg calcium carbonate ( mg elemental calcium) Start Date: 05/23/14 Stop Date: 06/02/14 Status: Discontinued calcium carbonate 500 mg (200 mg elemental calcium) oral tablet 1,000 mg, 2 tab, Route: PO, Drug form: CHEWTAB, PRN, Dosing Weight 98.7, kg, PRN Abnormal Lab Result, FOR ICU USE ONLY, Start date: 05/23/14 11:30:00, Duration: 30 day, Stop date: 06/22/14 12:29:00 Notes: (Same As: Gulshans)Calcium Carbonate 500 ph=653 mg elemental calcium Dose=_ mg calcium carbonate ( mg elemental calcium) Start Date: 05/23/14 Stop Date: 06/02/14 Status: Discontinued calcium gluconate + Sodium Chloride 0.9% IV 100 mL 2,000 mg, 20 mL, Route: IVPB, Drug form: INJ, Q2H, Dosing Weight 100.909, kg, To stew cwot=[id number] mg, Start date: 05/23/14 4:00:00, Duration: 2 doses or times, Stop date: 05/23/14 6:00:00 Start Date: 05/23/14 Stop Date: 05/23/14 Status: Completed calcium gluconate + Sodium Chloride 0.9% IV 50 mL 1,000 mg, 10 mL, Route: IVPB, ONCE, Dosing Weight 100.909, kg, Start date: 05/22 11:37:00, Stop date: 05/22/14 11:37:00 Start Date: 05/22/14 Stop Date: 05/22/14 Status: Completed calcium gluconate + Sodium Chloride 0.9% IV 50 mL 1 gm, 10 mL, Route: IVPB, PRN, Dosing Weight 98.7, kg, PRN Abnormal Lab Result, Start date: 05/23/14 11:30:00, Duration: 30 day, Stop date: 06/22/14 12:29:00, F OR ICU USE ONLY Special Instructions: FOR ICU USE ONLY Start Date: 05/23/14 Stop Date: 06/02/14 Status: Discontinued calcium gluconate + Sodium Chloride 0.9% IV 80 mL 2,000 mg, 20 mL, Route: IVPB, ONCE, Dosing Weight 98.7, kg, Start date: 05/31/14 13:36:00, Stop date: 05/31/14 13:36:00 Start Date: 05/31/14 Stop Date: 05/31/14 Status: Completed calcium gluconate + Sodium Chloride 0.9% IV 80 mL 2,000 mg, 20 mL, Route: IVPB, ONCE, Dosing Weight 100.909, kg, Start date: 05/22 20:10:00, Stop date: 05/22/14 20:10:00 Start Date: 05/22/14 Stop Date: 05/22/14 Status: Completed cefepime 1 gm, Route: IVPB, Drug form: INJ, [id number], Dosing Weight 98.7, kg, (CrCl 10 - 29 ml/min), Start date: 05/29/14 8:00:00, Duration: 30 day, Stop date: 06/28/14 0: 00:00 Notes: (Same As: Maxipime) Start Date: 05/29/14 Stop Date: 05/31/14 Status: Discontinued cefepime 1 gm, Route: IVPB, [id number], Dosing Weight 98.7, kg, (CrCl 10 - 29 ml/min), Start date: 05/29/14 8:00:00, Duration: 30 day, Stop date: 06/27/14 8:00:00 Start Date: 05/29/14 Stop Date: 05/29/14 Status: Canceled chlorhexidine topical 0.12% liquid 15 ml, Route: S&SPIT, Q12H, Drug form: LIQ, Start date: 05/28/14 21:00:00, Duration: 30 day, Stop date: 06/27/14 9:00:00 Notes: (Same As: Peridex) Start Date: 05/28/14 Stop Date: 05/29/14 Status: Discontinued clopidogrel 5 mg/ml cmpd oral suspension 75 mg=1 tab, PO, Daily, # 60 tab, 2 Refill(s) Start Date: 06/02/14 Status: Ordered Colace 100 mg oral capsule 100 mg, 1 cap, Route: PO, Drug form: CAP, BID, Dosing Weight 100.909, kg, PRN Co nstipation, Start date: 05/19/14 20:20:00, Duration: 30 day, Stop date: 06/18/14 20:19:00 Notes: (Same as: Colace) (Do Not Crush) Start Date: 05/19/14 Stop Date: 05/19/14 Status: Discontinued Colace 50 mg oral capsule 50 mg, 1 cap, Route: PO, Drug form: CAP, Daily, Dosing Weight 98.7, kg, Start da te: 05/26/14 9:00:00, Duration: 30 day, Stop date: 06/24/14 9:00:00 Notes: (Same as: Colace) (Do Not Crush) Start Date: 05/26/14 Stop Date: 05/26/14 Status: Discontinued DOBUTamine 1000 mg in 250 ml D5W Premix (titrate) 1,000 mg 1,000 mg, 250 mL, Rate: Titrate, Dosing Weight 98.7, kg, Route: IV, Total Volume : 250, Please keep at low dose if possible., Start date: 05/26/14 14:16:00, Dura tion: 30 day, Stop date: 06/25/14 14:15:00, Replace Every: 24 hr Notes: (Same as: Dobutrex) Final conc=4 mg/ml. Premix solution. Protect from l ight. Start Date: 05/26/14 Stop Date: 05/27/14 Status: Discontinued DOBUTamine 1000 mg in 250 ml D5W Premix (titrate) 1,000 mg 1,000 mg, 250 mL, Rate: Titrate, Dosing Weight 100.909, kg, Route: IV, Total Vol ume: 250, Start date: 05/22/14 14:59:00, Duration: 30 day, Stop date: 06/21/14 1 4:58:00, Replace Every: 24 hr Notes: (Same as: Dobutrex) Final conc=4 mg/ml. Premix solution. Protect from l ight. Start Date: 05/22/14 Stop Date: 05/29/14 Status: Discontinued docusate 100 mg, 1 cap, Route: PO, Drug form: CAP, Q12H, Dosing Weight 98.7, kg, Start da te: 05/28/14 21:00:00, Duration: 30 day, Stop date: 06/27/14 9:00:00 Notes: (Same as: Colace) (Do Not Crush) Start Date: 05/28/14 Stop Date: 06/02/14 Status: Discontinued docusate sodium 100 mg oral capsule 100 mg, 1 cap, Route: PO, Drug form: CAP, Q12H, Dosing Weight 98.7, kg, Start da te: 05/26/14 9:00:00, Duration: 30 day, Stop date: 06/24/14 21:00:00 Notes: (Same as: Colace) (Do Not Crush) Start Date: 05/26/14 Stop Date: 05/28/14 Status: Discontinued DOPamine 800 mg in D5W Premix (titrate) 800 mg 800 mg, 250 mL, Rate: Titrate, Dosing Weight 98.7, kg, Route: IV, Total Volume: 250 mL, Start date: 05/29/14 4:30:00, Duration: 30 day, Stop date: 06/28/14 4:29 :00, Replace Every: 24 hr Notes: (Same as: Intropin) Administer by either central venous catheter or perip herally-inserted central catheter (PICC) line. Final conc=3.2 mg/ml. Premix kiana ution. Start Date: 05/29/14 Stop Date: 06/01/14 Status: Discontinued Dulcolax Laxative 5 mg, 1 tab, Route: PO, Drug form: ECTAB, Q6H, Dosing Weight 98.7, kg, PRN Const ipation, Start date: 05/25/14 14:18:00, Duration: 30 day, Stop date: 06/24/14 14 :17:00 Notes: (Same As: Dulcolax, Correctol) (Do Not Crush) "Do Not Crush" Start Date: 05/25/14 Stop Date: 06/02/14 Status: Discontinued fentaNYL 1000 mcg in 20 mL (titrate) IV 1,000 microgram 1,000 microgram, 20 mL, Rate: Titrate as directed, Dosing Weight 98.7, kg, Route : IV, Total Volume: 20 mL, Start Date: 05/28/14 12:49:00, Duration: 30 day, Stop date: 06/27/14 12:48:00, Replace Every: 24 hr Start Date: 05/28/14 Stop Date: 05/29/14 Status: Discontinued Flonase 0.05 mg/inh nasal spray 1 spray, NASAL, Daily, in each nostril, # 16 gm, 0 Refill(s) Special Instructions: in each nostril Start Date: 05/19/14 Status: Ordered furosemide 40 mg, 4 mL, Route: IVP, Drug form: INJ, Q12H, Dosing Weight 100, kg, Priority: STAT, Start date: 05/18/14 20:53:00, Duration: 30 day, Stop date: 06/17/14 9:00: 00 Notes: (Same as: Lasix) Start Date: 05/18/14 Stop Date: 05/19/14 Status: Discontinued furosemide 100 mg in 100 ml IV titrate 100 mg + Sodium Chloride 0.9% IV 90 mL 100 mg, 10 mL, Rate: 2.5 mg/hour, Dosing Weight 100.909, kg, Route: IV, Total Vo lume: 100, Start Date: 05/22/14 18:36:00, Duration: 30 day, Stop date: 06/21/14 18:35:00, Replace Every: 24 hr, continuous Special Instructions: continuous Notes: (Same as: Lasix) Start Date: 05/22/14 Stop Date: 05/24/14 Status: Discontinued furosemide 20 mg oral tablet 20 mg=1 tab, PO, Daily, # 30 tab, 0 Refill(s) Start Date: 05/19/14 Stop Date: 06/02/14 Status: Discontinued GI cocktail 30 mL, Route: PO, Dosing Weight 100, kg, ONCE, STAT, Start date: 05/18/14 19:24: 00, Stop date: 05/18/14 19:24:00 Start Date: 05/18/14 Stop Date: 05/18/14 Status: Completed Lactated Ringers (Bolus) IV 250 mL, 125 ml/hr, Infuse Over: 2 hr, Route: IV, 250, Drug form: SOLN, ONCE, Rula ority: STAT, Dosing Weight 98.7 kg, Start date: 05/30/14 5:23:00, Duration: 1 do ses or times, Stop date: 05/30/14 5:23:00 Start Date: 05/30/14 Stop Date: 05/30/14 Status: Completed lansoprazole 30 mg, 10 mL, Route: NG, Drug form: SUSP, Daily, Dosing Weight 98.7, kg, Start d ate: 05/29/14 9:00:00, Duration: 30 day, Stop date: 06/27/14 9:00:00 Notes: Take 1 hour before or 2 hours after meal; Expires in 14 days. Shake well before use. (Same as:Prevacid) Compounded Product - formulation not commerci ally available Start Date: 05/29/14 Stop Date: 05/29/14 Status: Canceled Lasix 40 mg, Route: IV, ONCE, Dosing Weight 100.909, kg, Start date: 05/21/14 7:14:00, Stop date: 05/21/14 7:14:00 Start Date: 05/21/14 Stop Date: 05/21/14 Status: Discontinued Lasix 40 mg, 4 mL, Route: IVP, Drug form: INJ, ONCE, Dosing Weight 98.7, kg, Start perla e: 05/25/14 7:27:00, Stop date: 05/25/14 7:27:00 Notes: (Same as: Lasix) Start Date: 05/25/14 Stop Date: 05/25/14 Status: Completed Lasix 20 mg, 2 mL, Route: IV, Drug form: INJ, ONCE, Dosing Weight 100.909, kg, Start d ate: 05/21/14 7:16:00, Stop date: 05/21/14 7:16:00 Notes: (Same as: Lasix) Start Date: 05/21/14 Stop Date: 05/21/14 Status: Completed Lasix 40 mg, 4 mL, Route: IV, Drug form: INJ, ONCE, Dosing Weight 100.909, kg, Priorit y: STAT, Start date: 05/22/14 12:08:00, Stop date: 05/22/14 12:08:00 Notes: (Same as: Lasix) Start Date: 05/22/14 Stop Date: 05/22/14 Status: Completed Lasix 20 mg, 2 mL, Route: IV, Drug form: INJ, ONCE, Dosing Weight 100.909, kg, Start d ate: 05/21/14 22:42:00, Stop date: 05/21/14 22:42:00 Notes: (Same as: Lasix) Start Date: 05/21/14 Stop Date: 05/21/14 Status: Completed Lasix 20 mg, 2 mL, Route: IV, Drug form: INJ, ONCE, Dosing Weight 100.909, kg, Start d ate: 05/22/14 7:16:00, Stop date: 05/22/14 7:16:00 Notes: (Same as: Lasix) Start Date: 05/22/14 Stop Date: 05/22/14 Status: Completed Lasix 60 mg, 6 mL, Route: IVP, Drug form: INJ, ONCE, Dosing Weight 100, kg, Priority: STAT, Start date: 05/18/14 18:37:00, Stop date: 05/18/14 18:37:00 Notes: (Same as: Lasix) Start Date: 05/18/14 Stop Date: 05/18/14 Status: Completed Lasix 100 mg in 100 ml IV titrate 100 mg + Sodium Chloride 0.9% IV 90 mL 100 mg, 10 mL, Rate: 2.5mg/hr, Dosing Weight 100.909, kg, Route: IV, Total Volum e: 100, Priority: NOW, Start Date: 05/19/14 14:39:00, Duration: 30 day, Stop perla e: 06/18/14 14:38:00, Replace Every: 24 hr Notes: (Same as: Lasix) Start Date: 05/19/14 Stop Date: 05/20/14 Status: Discontinued levothyroxine 125 microgram, 1 tab, Route: PO, Drug form: TAB, Daily, Dosing Weight 100.909, k g, Start date: 05/20/14 9:00:00, Duration: 30 day, Stop date: 06/18/14 9:00:00 Notes: Take 1 hour before or 2 hours after meal; Enteral feeds may interefere wi th the absorption of this medication. (Same as:Levothroid) Start Date: 05/20/14 Stop Date: 06/02/14 Status: Discontinued levothyroxine 125 microgram, 1 tab, Route: PO, Drug form: TAB, [id number], Dosing Weight 100, kg, Start date: 05/19/14 6:30:00, Duration: 30 day, Stop date: 06/17/14 6:30:00 Notes: Take 1 hour before or 2 hours after meal; Enteral feeds may interefere wi th the absorption of this medication. (Same as:Levothroid) Start Date: 05/19/14 Stop Date: 05/19/14 Status: Discontinued levothyroxine 112 mcg (0.112 mg) oral tablet 112 microgram=1 tab, PO, Daily, # 30 tab, 0 Refill(s) Start Date: 05/19/14 Stop Date: 05/19/14 Status: Discontinued levothyroxine 125 mcg (0.125 mg) oral tablet 125 microgram=1 tab, PO, Daily, # 30 tab, 0 Refill(s) Start Date: 05/19/14 Stop Date: 06/02/14 Status: Discontinued levothyroxine 125 mcg (0.125 mg) oral tablet 125 microgram=1 tab, PO, Daily, # 60 tab, 1 Refill(s) Start Date: 06/02/14 Status: Ordered Lopressor 12.5 mg, 1 tab, Route: PO, Drug form: TAB, BID, Dosing Weight 98.7, kg, Start da te: 06/01/14 9:00:00, Duration: 30 day, Stop date: 06/30/14 17:00:00 Notes: (Same as: Lopressor) 12.5mg=1/4 X 50 mg tab. Start Date: 06/01/14 Stop Date: 06/02/14 Status: Discontinued losartan 12.5 mg, 0.5 tab, Route: PO, Drug form: TAB, Daily, Dosing Weight 100, kg, Start date: 05/19/14 9:00:00, Stop date: 06/17/14 9:00:00 Notes: (Same as: Cozaar) Start Date: 05/19/14 Stop Date: 05/23/14 Status: Discontinued losartan 12.5 mg, 0.5 tab, Route: PO, Drug form: TAB, Daily, Dosing Weight 98.7, kg, Star t date: 05/24/14 9:00:00, Duration: 30 day, Stop date: 06/22/14 9:00:00 Notes: (Same as: Samson) Start Date: 05/24/14 Stop Date: 05/25/14 Status: Discontinued losartan 12.5 mg, 0.5 tab, Route: PO, Drug form: TAB, Q12H, Dosing Weight 98.7, kg, Start date: 05/25/14 21:00:00, Duration: 30 day, Stop date: 06/24/14 9:00:00 Notes: (Same as: Samson) Start Date: 05/25/14 Stop Date: 05/29/14 Status: Discontinued losartan 50 mg oral tablet 50 mg=1 tab, PO, Daily, # 30 tab, 0 Refill(s) Start Date: 05/19/14 Stop Date: 06/02/14 Status: Discontinued Lovenox 40 mg, Route: SUB-Q, Drug form: INJ, [id number], Dosing Weight 100.909, kg, Start date: 05/19/14 16:00:00, Duration: 30 day, Stop date: 06/18/14 4:00:00 Start Date: 05/19/14 Stop Date: 05/19/14 Status: Canceled Lovenox 40 mg, 0.4 mL, Route: SUB-Q, Drug form: INJ, [id number], Dosing Weight 100.909, kg , Start date: 05/19/14 16:00:00, Duration: 30 day, Stop date: 06/17/14 16:00:00 Notes: (Same as: Lovenox) Start Date: 05/19/14 Stop Date: 06/02/14 Status: Discontinued LR IV 1,000 mL 1,000 mL, Rate: 75 ml/hr, Infuse over: 13.3 hr, Route: IV, Dosing Weight 98.7 kg , Total Volume: 1,000, Start date: 05/28/14 8:00:00, Duration: 6 hr, Stop date: 05/28/14 13:59:00 Start Date: 05/28/14 Stop Date: 05/28/14 Status: Completed magnesium oxide 800 mg, 2 tab, Route: PO, Drug form: TAB, PRN, Dosing Weight 98.7, kg, PRN Abnor mal Lab Result, FOR ICU USE ONLY, Start date: 05/23/14 11:30:00, Duration: 30 da y, Stop date: 06/22/14 12:29:00 Notes: (Same as: Mag-Ox 400)Magnesium oxide 173de=414cm elemental magnesiumDose= ____mg magnesium oxide (___mg elemental magnesium) Start Date: 05/23/14 Stop Date: 06/02/14 Status: Discontinued magnesium sulfate 2 gm, 50 mL, Route: IVPB, Drug form: INJ, PRN, Dosing Weight 98.7, kg, PRN Abnor mal Lab Result, Start date: 05/23/14 11:30:00, Duration: 30 day, Stop date: 06/01 06/14 12:29:00, FOR ICU USE ONLY Special Instructions: FOR ICU USE ONLY Start Date: 05/23/14 Stop Date: 06/02/14 Status: Discontinued magnesium sulfate 2 gm in Water 50 ml 2 gm, 50 mL, Route: IVPB, Drug form: INJ, ONCE, Dosing Weight 98.7, kg, Start da te: 05/29/14 9:10:00, Duration: 2 hr, Stop date: 05/29/14 9:10:00 Start Date: 05/29/14 Stop Date: 05/29/14 Status: Completed magnesium sulfate 2 gm in Water 50 ml 2 gm, 50 mL, Route: IVPB, Drug form: INJ, ONCE, Dosing Weight 100.909, kg, Start date: 05/22/14 20:09:00, Duration: 2 hr, Stop date: 05/22/14 20:09:00 Start Date: 05/22/14 Stop Date: 05/22/14 Status: Completed magnesium sulfate 2 gm in Water 50 ml + Sodium Chloride 0.9% IV 100 mL 3 gm, 6 mL, Route: IVPB, Drug form: INJ, ONCE, Dosing Weight 100.909, kg, Start date: 05/20/14 21:57:00, Duration: 2 hr, Stop date: 05/20/14 21:57:00 Notes: (Same as: MgSO4) Start Date: 05/20/14 Stop Date: 05/20/14 Status: Completed melatonin 3 mg, 1 tab, Route: PO, Drug form: TAB, Bedtime, Dosing Weight 98.7, kg, PRN Sle ep, Start date: 05/27/14 18:37:00, Duration: 30 day, Stop date: 06/26/14 18:36:0 0 Notes: (Same as: Melatonin) Start Date: 05/27/14 Stop Date: 06/02/14 Status: Discontinued metoprolol extended release 12.5 mg, 0.5 tab, Route: PO, Drug form: TAB, Daily, Start date: 05/19/14 15:12:0 0, Stop date: 06/18/14 9:00:00 Notes: (Same as: Lopressor) Start Date: 05/19/14 Stop Date: 05/20/14 Status: Discontinued metoprolol tartrate 12.5 mg, 1 tab, Route: PO, Drug form: TAB, ONCE, Dosing Weight 100.909, kg, Star t date: 05/22/14 7:16:00, Stop date: 05/22/14 7:16:00 Notes: (Same as: Lopressor) 12.5mg=1/4 X 50 mg tab. Start Date: 05/22/14 Stop Date: 05/22/14 Status: Completed metoprolol tartrate 25 mg oral tablet 12.5 mg=0.5 tab, PO, BID, # 60 tab, 2 Refill(s) Start Date: 06/02/14 Status: Ordered midazolam 1 mg, 1 mL, Route: IV, Drug form: INJ, ONCE, Dosing Weight 100.909, kg, Start da te: 05/22/14 15:39:00, Stop date: 05/22/14 15:39:00 Notes: (Same as: Versed) Start Date: 05/22/14 Stop Date: 05/22/14 Status: Completed MiraLax 17 gm, 1 pkt, Route: PO, Drug form: PWDR, Daily, Dosing Weight 100.909, kg, Star t date: 05/20/14 9:00:00, Duration: 30 day, Stop date: 06/18/14 9:00:00 Notes: Dissolve in 8 oz of water or juice.(Same as: Miralax) Start Date: 05/20/14 Stop Date: 05/19/14 Status: Canceled Neutra-Phos 2 pkt, Route: PO, Drug Form: PDR/REC, Dosing Weight 98.7, kg, PRN, PRN Abnormal Lab Result, FOR ICU USE ONLY, Start date: 05/23/14 11:30:00, Duration: 30 day, S top date: 06/22/14 12:29:00 Notes: (Same as: Neutra-Phos) Each 1.25 gm pkt has 250mg phosphorous. Mix w/2.5 oz water and stir. Start Date: 05/23/14 Stop Date: 06/02/14 Status: Discontinued [place] 5/325 oral tablet 1 tab, Route: PO, Drug Form: TAB, Dosing Weight 98.7, kg, Q6H, PRN Pain Score 1- 3, Start date: 05/23/14 7:55:00, Duration: 30 day, Stop date: 06/22/14 7:54:00 Notes: (Same as: [place]field 325/5) Do not exceed 4gm/day of acetaminophen. Start Date: 05/23/14 Stop Date: 06/02/14 Status: Discontinued [place] 5/325 oral tablet 1 tab, Route: PO, Drug Form: TAB, Dosing Weight 98.7, kg, ONCE, Start date: 05/04 10/14 2:54:00, Stop date: 05/29/14 2:54:00 Notes: (Same as: [place]field 325/5) Do not exceed 4gm/day of acetaminophen. Start Date: 05/29/14 Stop Date: 05/29/14 Status: Completed Plavix 75 mg, 1 tab, Route: PO, Drug form: TAB, Daily, Dosing Weight 98.7, kg, Start da te: 06/02/14 9:00:00, Duration: 30 day, Stop date: 07/01/14 9:00:00 Notes: (Same As: Plavix) Start Date: 06/02/14 Stop Date: 06/02/14 Status: Discontinued potassium chloride 20 mEq, 100 mL, Route: IVPB, Drug form: INJ, Q2H, Dosing Weight 100.909, kg, Tot al dose=40 mEq, Start date: 05/22/14 22:00:00, Duration: 2 doses or times, Stop date: 05/23/14 0:00:00 Notes: (Same as: KCL) Infuse no faster than 10 mEq/hr if given peripherally. Start Date: 05/22/14 Stop Date: 05/23/14 Status: Completed potassium chloride 40 mEq, 2 tab, Route: PO, Drug form: ERTAB, ONCE, Dosing Weight 100.909, kg, Sta rt date: 05/19/14 14:12:00, Stop date: 05/19/14 14:12:00 Notes: (Same as: K-Dur 20)"Do Not Crush" With food and full glass of water Start Date: 05/19/14 Stop Date: 05/19/14 Status: Completed potassium chloride 20 mEq, 1 tab, Route: PO, Drug form: ERTAB, PRN, Dosing Weight 98.7, kg, PRN Abn ormal Lab Result, Start date: 05/23/14 11:30:00, Duration: 30 day, Stop date: 12:29:00, FOR ICU USE ONLY Special Instructions: FOR ICU USE ONLY Notes: (Same as: K-Dur 20)"Do Not Crush" With food and full glass of water Start Date: 05/23/14 Stop Date: 06/02/14 Status: Discontinued potassium chloride 20 mEq, 15 mL, Route: NJ, Drug form: LIQ, PRN, Dosing Weight 98.7, kg, PRN Abnor mal Lab Result, Start date: 05/23/14 11:30:00, Duration: 30 day, Stop date: 06/01 06/14 12:29:00, FOR ICU USE ONLY Special Instructions: FOR ICU USE ONLY Notes: (Same as: Potassium Chloride) Start Date: 05/23/14 Stop Date: 06/02/14 Status: Discontinued potassium chloride 10 mEq, 50 mL, Route: IVPB, Drug form: INJ, PRN, Dosing Weight 98.7, kg, PRN Abn ormal Lab Result, Via peripheral line, Start date: 05/23/14 11:30:00, Duration: 30 day, Stop date: 06/22/14 12:29:00, FOR ICU USE ONLY Special Instructions: FOR ICU USE ONLY Notes: (Same as: KCL) Infuse over 2 hours. Start Date: 05/23/14 Stop Date: 06/02/14 Status: Discontinued potassium chloride 20 mEq, 100 mL, Route: IVPB, Drug form: INJ, PRN, Dosing Weight 98.7, kg, PRN Ab normal Lab Result, Via central line, Start date: 05/23/14 11:30:00, Duration: 30 day, Stop date: 06/22/14 12:29:00, FOR ICU USE ONLY Special Instructions: FOR ICU USE ONLY Notes: (Same as: KCL) Infuse no faster than 10 mEq/hr if given peripherally. Start Date: 05/23/14 Stop Date: 06/02/14 Status: Discontinued potassium chloride 20 mEq, 100 mL, Route: IVPB, Drug form: INJ, Q2H, Dosing Weight 100.909, kg, Tot al dose=40 mEq, Start date: 05/23/14 4:00:00, Duration: 2 doses or times, Stop d ate: 05/23/14 6:00:00 Notes: (Same as: KCL) Infuse no faster than 10 mEq/hr if given peripherally. Start Date: 05/23/14 Stop Date: 05/23/14 Status: Completed potassium chloride 10 mEq oral tablet, extended release 10 mEq=1 tab, PO, Daily, # 10 tab, 0 Refill(s) Start Date: 05/19/14 Stop Date: 06/02/14 Status: Discontinued potassium chloride 10 mEq oral tablet, extended release 10 mEq=1 tab, PO, Daily, # 30 tab, 0 Refill(s) Start Date: 06/02/14 Status: Ordered potassium chloride 20 mEq oral tablet, extended release 20 mEq, 1 tab, Route: PO, Drug form: ERTAB, ONCE, Dosing Weight 98.7, kg, Start date: 05/24/14 3:07:00, Stop date: 05/24/14 3:07:00 Notes: (Same as: K-Dur 20)"Do Not Crush" With food and full glass of water Start Date: 05/24/14 Stop Date: 05/24/14 Status: Completed potassium chloride 20 mEq oral tablet, extended release 40 mEq, 2 tab, Route: PO, Drug form: ERTAB, ONCE, Dosing Weight 100.909, kg, Sta rt date: 05/19/14 6:16:00, Stop date: 05/19/14 6:16:00 Notes: (Same as: K-Dur 20)"Do Not Crush" With food and full glass of water Start Date: 05/19/14 Stop Date: 05/19/14 Status: Completed potassium phosphate + Sodium Chloride 0.9% IV 250 mL 15 mmol, 5 mL, Route: IVPB, PRN, Dosing Weight 98.7, kg, PRN Abnormal Lab Result , Start date: 05/23/14 11:30:00, Duration: 30 day, Stop date: 06/22/14 12:29:00, FOR ICU USE ONLY Special Instructions: FOR ICU USE ONLY Notes: (Same as: K Phosphate.) 1 mMol phoshate has 1.47 mEq potassium Infuse o yuri 4 hours Start Date: 05/23/14 Stop Date: 06/02/14 Status: Discontinued potassium phosphate + Sodium Chloride 0.9% IV 250 mL 30 mmol, 10 mL, Route: IVPB, PRN, Dosing Weight 98.7, kg, PRN Abnormal Lab Resul t, Start date: 05/23/14 11:30:00, Duration: 30 day, Stop date: 06/22/14 12:29:00 , FOR ICU USE ONLY Special Instructions: FOR ICU USE ONLY Notes: (Same as: K Phosphate.) 1 mMol phoshate has 1.47 mEq potassium Infuse o yuri 4 hours Start Date: 05/23/14 Stop Date: 06/02/14 Status: Discontinued potassium phosphate + Sodium Chloride 0.9% IV 250 mL 45 mmol, 15 mL, Route: IVPB, PRN, Dosing Weight 98.7, kg, PRN Abnormal Lab Resul t, Start date: 05/23/14 11:30:00, Duration: 30 day, Stop date: 06/22/14 12:29:00 , FOR ICU USE ONLY Special Instructions: FOR ICU USE ONLY Notes: (Same as: K Phosphate.) 1 mMol phoshate has 1.47 mEq potassium Infuse o yuri 4 hours Start Date: 05/23/14 Stop Date: 06/02/14 Status: Discontinued ProAir HFA 90 mcg/inh inhalation aerosol with adapter 2 puff, INHALATION, Q4H, for wheezing, # 9 gm, 0 Refill(s) Start Date: 05/19/14 Status: Ordered Restoril 15 mg, 1 cap, Route: PO, Drug form: CAP, Bedtime, Dosing Weight 100.909, kg, PRN Sleep, Start date: 05/20/14 0:49:00, Duration: 30 day, Stop date: 06/19/14 0:48 :00 Notes: (Same As: Restoril) Start Date: 05/20/14 Stop Date: 06/02/14 Status: Discontinued Saline Flush 0.9% 10 ml, Route: IVP, Drug Form: INJ, Dosing Weight 100, kg, PRN, PRN Line Flush, S tart date: 05/18/14 20:53:00, Duration: 30 day, Stop date: 06/17/14 21:52:00 Start Date: 05/18/14 Stop Date: 05/18/14 Status: Deleted Saline Flush 0.9% 10 ml, Route: IVP, Drug Form: INJ, Dosing Weight 100, kg, Q12H, Start date: 05/03 09/14 21:00:00, Duration: 30 day, Stop date: 06/17/14 9:00:00 Notes: (Same as: BD Posiflush) Start Date: 05/18/14 Stop Date: 06/02/14 Status: Discontinued Saline Flush 0.9% 10 mL, Route: IVP, Drug Form: INJ, Dosing Weight 100, kg, PRN, PRN Line Flush, S tart date: 05/18/14 17:10:00, Duration: 30 day, Stop date: 06/17/14 18:09:00 Notes: (Same as: BD Posiflush) Start Date: 05/18/14 Stop Date: 06/02/14 Status: Discontinued simethicone 80 mg, 1 tab, Route: PO, Drug form: CHEWTAB, Q6H, Dosing Weight 100.909, kg, PRN Gas, Start date: 05/19/14 20:20:00, Duration: 30 day, Stop date: 06/18/14 20:19 :00 Notes: (Same as: Mylicon) Start Date: 05/19/14 Stop Date: 05/19/14 Status: Discontinued sodium phosphate + Sodium Chloride 0.9% IV 250 mL 15 mmol, 5 mL, Route: IVPB, PRN, Dosing Weight 98.7, kg, PRN Abnormal Lab Result , Start date: 05/23/14 11:30:00, Duration: 30 day, Stop date: 06/22/14 12:29:00, FOR ICU USE ONLY Special Instructions: FOR ICU USE ONLY Start Date: 05/23/14 Stop Date: 06/02/14 Status: Discontinued sodium phosphate + Sodium Chloride 0.9% IV 250 mL 30 mmol, 10 mL, Route: IVPB, PRN, Dosing Weight 98.7, kg, PRN Abnormal Lab Resul t, Start date: 05/23/14 11:30:00, Duration: 30 day, Stop date: 06/22/14 12:29:00 , FOR ICU USE ONLY Special Instructions: FOR ICU USE ONLY Start Date: 05/23/14 Stop Date: 06/02/14 Status: Discontinued sodium phosphate + Sodium Chloride 0.9% IV 250 mL 45 mmol, 15 mL, Route: IVPB, PRN, Dosing Weight 98.7, kg, PRN Abnormal Lab Resul t, Start date: 05/23/14 11:30:00, Duration: 30 day, Stop date: 06/22/14 12:29:00 , FOR ICU USE ONLY Special Instructions: FOR ICU USE ONLY Start Date: 05/23/14 Stop Date: 06/02/14 Status: Discontinued vancomycin 1 gm, Route: IVPB, Drug form: INJ, [id number], Dosing Weight 98.7, kg, Start date: 05/29/14 8:00:00, Duration: 30 day, Stop date: 06/27/14 20:00:00 Start Date: 05/29/14 Stop Date: 05/29/14 Status: Canceled vancomycin + Sodium Chloride 0.9% IV 250 mL 1.25 gm, Route: IVPB, [id number], Dosing Weight 98.7, kg, Start date: 05/29/14 8:00 :00, Duration: 30 day, Stop date: 06/27/14 23:30:00 Notes: (Same As: Vancocin)Infusion rate< 1000 mg: infuse over 1 [id number] - 1500 mg: infuse over 1.5 [id number] - 2000 mg: infuse over 2 hours> 2001 mg: infuse over 2.5 hours Vancomycin FOR IV SET ONLY Start Date: 05/29/14 Stop Date: 05/31/14 Status: Discontinued Zofran 4 mg, 2 mL, Route: IV, Drug form: INJ, Q8H, Dosing Weight 100.909, kg, PRN Nause a, Start date: 05/22/14 13:43:00, Duration: 30 day, Stop date: 06/21/14 13:42:00 Notes: (Same as: Zofran) Start Date: 05/22/14 Stop Date: 06/02/14 Status: Discontinued Results BLOOD BANK RESULTS 1 2 3 Most recent to oldest [Reference Range]: A POS *Unknown* (05/28/14 2:00 AM) ABO/Rh Negative (05/28/14 2:00 AM) Antibody Scrn Product available (05/28/14 8:47 AM) FFP product Product available (05/28/14 8:47 AM) RBC product ELECTROLYTES 1 2 3 Most recent to oldest [Reference Range]: 134 mEq/L *LOW* (06/02/14 2:58 AM) 136 mEq/L (06/01/14 5:24 AM) 134 mEq/L *LOW* (05/31/14 1:17 AM) Sodium Lvl [135-145 mEq/L] 4.0 mEq/L (06/02/14 2:58 AM) 4.1 mEq/L (06/01/14 5:24 AM) 4.2 mEq/L (05/31/14 1:17 AM) Potassium Lvl [3.5-5.1 mEq/L] 104 mEq/L (06/02/14 2:58 AM) 103 mEq/L (06/01/14 5:24 AM) 100 mEq/L (05/31/14 1:17 AM) Chloride Lvl [95-109 mEq/L] 25 mEq/L (06/02/14 2:58 AM) 26 mEq/L (06/01/14 5:24 AM) 24 mEq/L (05/31/14 1:17 AM) CO2 [24-32 mEq/L] 9.0 mEq/L *LOW* (06/02/14 2:58 AM) 11.1 mEq/L (06/01/14 5:24 AM) 14.2 mEq/L (05/31/14 1:17 AM) AGAP [10.0-20.0 mEq/L] CHEM PANEL 1 2 3 Most recent to oldest [Reference Range]: 0.9 mg/dL (06/02/14 2:58 AM) 0.9 mg/dL (06/01/14 5:24 AM) 1.0 mg/dL (05/31/14 1:17 AM) Creatinine Lvl [0.5-1.4 mg/dL] 92 mL/min/1.73m2 1 *NA* (06/02/14 2:58 AM) 92 mL/min/1.73m2 2 *NA* (06/01/14 5:24 AM) 81 mL/min/1.73m2 3 *NA* (05/31/14 1:17 AM) eGFR 16 mg/dL (06/02/14 2:58 AM) 17 mg/dL (06/01/14 5:24 AM) 18 mg/dL (05/31/14 1:17 AM) BUN [7-22 mg/dL] 19 (05/19/14 3:18 AM) 18 (05/18/14 5:26 PM) B/C Ratio [6-25] 100 mg/dL 4 *HI* (06/02/14 2:58 AM) 91 mg/dL 5 (06/01/14 5:24 AM) 89 mg/dL 6 (05/31/14 1:17 AM) Glucose Lvl [70-99 mg/dL] 6.3 g/dL *LOW* (05/19/14 3:18 AM) 7.0 g/dL (05/18/14 5:26 PM) Total Protein [6.4-8.4 g/dL] 3.5 g/dL (05/19/14 3:18 AM) 3.8 g/dL (05/18/14 5:26 PM) Albumin Lvl [3.5-5.0 g/dL] 2.8 g/dL (05/19/14 3:18 AM) 3.2 g/dL (05/18/14 5:26 PM) Globulin [2.0-4.0 g/dL] 1.2 (05/19/14 3:18 AM) 1.2 (05/18/14 5:26 PM) A/G Ratio [0.7-1.6] 8.7 mg/dL (06/02/14 2:58 AM) 8.6 mg/dL (06/01/14 5:24 AM) 8.4 mg/dL *LOW* (05/31/14 1:17 AM) Calcium Lvl [8.5-10.5 mg/dL] 4.1 mg/dL (06/02/14 2:58 AM) 4.4 mg/dL (06/01/14 5:24 AM) 3.6 mg/dL (05/31/14 1:17 AM) Phosphorus [2.5-4.5 mg/dL] 1.8 mg/dL (06/02/14 2:58 AM) 1.9 mg/dL (06/01/14 5:24 AM) 2.0 mg/dL (05/31/14 1:17 AM) Magnesium Lvl [1.8-2.4 mg/dL] 45 unit/L (05/19/14 3:18 AM) 57 unit/L (05/18/14 5:26 PM) ALT [0-65 unit/L] 23 unit/L (05/19/14 3:18 AM) 29 unit/L (05/18/14 5:26 PM) AST [0-37 unit/L] 54 unit/L (05/19/14 3:18 AM) 63 unit/L (05/18/14 5:26 PM) Alk Phos [39-136 unit/L] 1.3 mg/dL (05/19/14 3:18 AM) 1.4 mg/dL *HI* (05/18/14 5:26 PM) Bili Total [0.2-1.3 mg/dL] 1Result Comment: The eGFR is calculated [...] values reflect the clinical guidelines of the [employer] [employer]. 5Interpretive Data: Adult reference range values reflect the clinical guidelines of the [employer] [employer]. 6Interpretive Data: Adult reference range values reflect the clinical guidelines of the [employer]. CARDIAC ENZYMES 1 2 3 Most recent to oldest [Reference Range]: 134 unit/L (05/19/14 8:17 AM) 136 unit/L (05/18/14 5:26 PM) Total CK [12-191 unit/L] 1.7 ng/mL (05/19/14 8:17 AM) CK MB [0.5-3.6 ng/mL] 1.3 (05/19/14 8:17 AM) CK MB Index [0.0-2.5] 0.022 ng/mL (05/19/14 8:17 AM) Troponin-T [0.000-0.100 ng/mL] 0.03 ng/mL (05/19/14 8:17 AM) 0.03 ng/mL (05/18/14 5:26 PM) Troponin-I [0.00-0.40 ng/mL] 788 pg/mL 7 *HI* (05/18/14 5:52 PM) BNP [<=100 pg/mL] 7Interpretive Data: Elevated results are in line with increasing severity of congestive heart failure. Minor elevations between 100 and 300 may be seen with Myocardial Ischemia, Sodium retaining drugs, and compensated/treated heart failure. LIPIDS 1 2 3 Most recent to oldest [Reference Range]: 3.11 *LOW* (05/19/14 3:18 AM) CHD Risk [4.00-7.30] 137 mg/dL (05/19/14 3:18 AM) Chol [<=199 mg/dL] 55 mg/dL (05/19/14 3:18 AM) Trig [<=149 mg/dL] 44 mg/dL *LOW* (05/19/14 3:18 AM) HDL [>=61 mg/dL] 82 mg/dL (05/19/14 3:18 AM) LDL (Calculated) [<=99 mg/dL] 11 *NA* (05/19/14 3:18 AM) VLDL SPECIAL CHEMISTRY 1 2 3 Most recent to oldest [Reference Range]: 5.9 % *HI* (05/19/14 3:18 AM) Hgb A1C [<=5.6 %] THYROID PANEL 1 2 3 Most recent to oldest [Reference Range]: 32 % (05/19/14 3:18 AM) T3 Uptake [31-39 %] 8.0 ug/dl (05/19/14 3:18 AM) T4 [4.7-13.3 ug/dl] 2.6 *NA* (05/19/14 3:18 AM) FTI 3.380 uIU/mL (05/19/14 3:18 AM) TSH [0.360-3.740 uIU/mL] PARATHYROID PROFILE 1 2 3 Most recent to oldest [Reference Range]: 1.05 mMol/L (06/02/14 2:58 AM) 1.14 mMol/L (06/01/14 5:24 AM) 1.02 mMol/L *LOW* (05/31/14 1:17 AM) Ca Ion WB [1.05-1.25 mMol/L] 1.08 mMol/L (06/02/14 2:58 AM) 1.12 mMol/L (06/01/14 5:24 AM) 1.01 mMol/L *LOW* (05/31/14 1:17 AM) Ca Norm WB [1.05-1.25 mMol/L] DRUG SCREEN 1 2 3 Most recent to oldest [Reference Range]: Negative *NA* (05/19/14 8:18 AM) U Amph Scr [Negative] Negative *NA* (05/19/14 8:18 AM) U Kimmy Scr [Negative] Negative *NA* (05/19/14 8:18 AM) U Benzodia Scr [Negative] Negative *NA* (05/19/14 8:18 AM) U Cocaine Scr [Negative] Negative *NA* (05/19/14 8:18 AM) U Opiate Scr [Negative] Negative *NA* (05/19/14 8:18 AM) U Phencyc Scr [Negative] Negative *NA* (05/19/14 8:18 AM) U Cannab Scr [Negative] See Note 8 *NA* (05/19/14 8:18 AM) UDS Note 8Interpretive Data: Drugs reported as positive have not [...] Methadone 300 ng/mL Urine alcohol 20 mg/dL TOXICOLOGY 1 2 3 Most recent to oldest [Reference Range]: 0730 *NA* (05/30/14 11:26 AM) Taras Mandujano TND 8.6 ug/ml 9 *NA* (05/30/14 11:26 AM) Taras Mandujano 9Interpretive Data: Therapeutic Range: Trough: 10 - 20 ug/mL Peak: 20 - 40 ug/mL Potential Toxicity: >80 ug/mL URINE AND STOOL 1 2 3 Most recent to oldest [Reference Range]: Slight *ABN* (05/29/14 1:30 PM) UA Turbidity [Clear] Yellow *NA* (05/29/14 1:30 PM) UA Color [Yellow] 6.0 (05/29/14 1:30 PM) UA pH [5.0-8.0] 1.022 (05/29/14 1:30 PM) UA Spec Grav [<=1.030] Negative mg/dL *NA* (05/29/14 1:30 PM) UA Glucose [Negative mg/dL] Large *ABN* (05/29/14 1:30 PM) UA Blood [Negative] Negative mg/dL *NA* (05/29/14 1:30 PM) UA Ketones [Negative mg/dL] 50 mg/dL *ABN* (05/29/14 1:30 PM) UA Protein [Negative mg/dL] <=1.0 mg/dL *NA* (05/29/14 1:30 PM) UA Urobilinogen [0.1-1.0 mg/dL] Negative *NA* (05/29/14 1:30 PM) UA Bili [Negative] Moderate *ABN* (05/29/14 1:30 PM) UA Leuk Est [Negative] Negative (05/29/14 1:30 PM) UA Nitrite [Negative] 35 /HPF *NA* (05/29/14 1:30 PM) UA WBC [0-5 /HPF] 233 /HPF *NA* (05/29/14 1:30 PM) UA RBC [0-2 /HPF] Few /HPF *NA* (05/29/14 1:30 PM) UA Bacteria [None Seen /HPF] Moderate /LPF *ABN* (05/29/14 1:30 PM) UA Sq Epi [Few /LPF] Many /LPF *ABN* (05/29/14 1:30 PM) UA Mucus [None Seen /LPF] HEMATOLOGY 1 2 3 Most recent to oldest [Reference Range]: 7.4 K/CMM (06/02/14 2:58 AM) 7.1 K/CMM (06/01/14 5:24 AM) 8.0 K/CMM (05/31/14 1:17 AM) WBC [3.7-10.4 K/CMM] 4.35 M/CMM *LOW* (06/02/14 2:58 AM) 4.30 M/CMM *LOW* (06/01/14 5:24 AM) 4.44 M/CMM *LOW* (05/31/14 1:17 AM) RBC [4.70-6.10 M/CMM] 13.0 g/dL *LOW* (06/02/14 2:58 AM) 12.4 g/dL *LOW* (06/01/14 5:24 AM) 13.1 g/dL *LOW* (05/31/14 1:17 AM) Hgb [14.0-18.0 g/dL] 38.3 % *LOW* (06/02/14 2:58 AM) 38.2 % *LOW* (06/01/14 5:24 AM) 39.6 % *LOW* (05/31/14 1:17 AM) Hct [42.0-54.0 %] 88.1 fL (06/02/14 2:58 AM) 89.0 fL (06/01/14 5:24 AM) 89.1 fL (05/31/14:17 AM) MCV [80.0-94.0 fL] 29.8 pg (06/02/14 2:58 AM) 28.9 pg (06/01/14 5:24 AM) 29.4 pg (05/31/14 1:17 AM) MCH [27.0-31.0 pg] 33.9 g/dL (06/02/14 2:58 AM) 32.5 g/dL (06/01/14 5:24 AM) 33.0 g/dL (05/31/14 1:17 AM) MCHC [32.0-36.0 g/dL] 13.8 % (06/02/14 2:58 AM) 13.8 % (06/01/14 5:24 AM) 13.7 % (05/31/14 1:17 AM) RDW [11.5-14.5 %] 254 K/CMM (06/02/14 2:58 AM) 209 K/CMM (06/01/14 5:24 AM) 196 K/CMM (05/31/14 1:17 AM) Platelet [133-450 K/CMM] 7.3 fL *LOW* (06/02/14 2:58 AM) 7.3 fL *LOW* (06/01/14 5:24 AM) 7.5 fL (05/31/14 1:17 AM) MPV [7.4-10.4 fL] 74.8 % (06/02/14 2:58 AM) 84.0 % *HI* (06/01/14 5:24 AM) 74.2 % (05/31/14 1:17 AM) Segs [45.0-75.0 %] 0.0 % (06/01/14 5:24 AM) Bands [0.0-11.0 %] 10.5 % *LOW* (06/02/14 2:58 AM) 7.0 % *LOW* (06/01/14 5:24 AM) 11.5 % *LOW* (05/31/14 1:17 AM) Lymphocytes [20.0-40.0 %] 0.0 % (06/01/14 5:24 AM) Atypical Lymphs [<=0.0 %] 11.4 % (06/02/14 2:58 AM) 9.0 % (06/01/14 5:24 AM) 11.2 % (05/31/14 1:17 AM) Monocytes [2.0-12.0 %] 2.1 % (06/02/14 2:58 AM) 2.2 % (05/31/14 1:17 AM) 2.1 % (05/30/14 4:51 AM) Eosinophils [0.0-4.0 %] 1.2 % *HI* (06/02/14 2:58 AM) 0.9 % (05/31/14 1:17 AM) 0.6 % (05/30/14 4:51 AM) Basophils [0.0-1.0 %] 5.5 K/CMM (06/02/14 2:58 AM) 6.0 K/CMM (06/01/14 5:24 AM) 5.9 K/CMM (05/31/14 1:17 AM) Segs-Bands # [1.5-8.1 K/CMM] 0.8 K/CMM *LOW* (06/02/14 2:58 AM) 0.5 K/CMM *LOW* (06/01/14 5:24 AM) 0.9 K/CMM *LOW* (05/31/14 1:17 AM) Lymphocytes # [1.0-5.5 K/CMM] 0.8 K/CMM (06/02/14 2:58 AM) 0.6 K/CMM (06/01/14 5:24 AM) 0.9 K/CMM *HI* (05/31/14 1:17 AM) Monocytes # [0.0-0.8 K/CMM] 0.2 K/CMM (06/02/14 2:58 AM) 0.2 K/CMM (05/31/14 1:17 AM) 0.2 K/CMM (05/30/14 4:51 AM) Eosinophils # [0.0-0.5 K/CMM] 0.1 K/CMM (06/02/14 2:58 AM) 0.1 K/CMM (05/31/14 1:17 AM) 0.1 K/CMM (05/29/14 12:31 AM) Basophils # [0.0-0.2 K/CMM] Normal (06/01/14 5:24 AM) Normal (05/24/14 3:37 AM) Normal (05/18/14 5:26 PM) RBC Morph Normal (06/01/14 5:24 AM) Normal (05/24/14 3:37 AM) Normal (05/18/14 5:26 PM) Plt Morph 14.5 seconds (06/02/14 3:14 AM) 15.0 seconds *HI* (05/29/14 12:31 AM) 14.3 seconds (05/28/14 2:00 AM) PT [12.0-14.7 seconds] 1.12 10 (06/02/14 3:14 AM) 1.17 11 (05/29/14 12:31 AM) 1.10 12 (05/28/14 2:00 AM) INR [0.85-1.17] 167 seconds *NA* (05/28/14 4:51 PM) 169 seconds *NA* (05/28/14 2:43 PM) 186 seconds *NA* (05/21/14 3:01 PM) POC Activated Clotting Time 32.6 seconds 13 (06/02/14 3:14 AM) 32.6 seconds 14 (05/29/14 12:31 AM) 32.8 seconds 15 (05/28/14 2:00 AM) PTT [22.9-35.8 seconds] 10Interpretive Data: RECOMMENDED RANGES FOR PROTIME INR: 2.0-3.0 for most medical and surgical thromboembolic states. 2.5-3.5 for artificial heart valves and recurrent embolism. INR SHOULD BE USED ONLY FOR PATIENTS ON STABLE ANTICOAGULANT THERAPY. 11Interpretive Data: RECOMMENDED RANGES FOR PROTIME INR: 2.0-3.0 for most medical and surgical thromboembolic states. 2.5-3.5 for artificial heart valves and recurrent embolism. INR SHOULD BE USED ONLY FOR PATIENTS ON STABLE ANTICOAGULANT THERAPY. 12Interpretive Data: RECOMMENDED RANGES FOR PROTIME INR: 2.0-3.0 for most medical and surgical thromboembolic states. 2.5-3.5 for artificial heart valves and recurrent embolism. INR SHOULD BE USED ONLY FOR PATIENTS ON STABLE ANTICOAGULANT THERAPY. 13Interpretive Data: Heparin Therapeutic Range: 57 - 92 Seconds 14Interpretive Data: Heparin Therapeutic Range: 57 - 92 Seconds 15Interpretive Data: Heparin Therapeutic Range: 57 - 92 Seconds Immunizations No data available for this section Procedures No data available for this section Social History Social History Type Response Smoking Status Former smoker; Exposure to Tobacco Smoke None; Cigarette Smoking Last 365 Days No; Reg Smoking Cessation Counseling No Assessment and Plan Extracted from: Title: Progress Note * Author: Don Ramirez MD Date: 06/02/14 Patient: FOUZIA GOLDEN Age: 59 years Sex: Male : [...] 0.9%) Unscheduled Meds: None PRN Meds (23):acetaminophen-hydrocodone ([place] 5/325 oral tablet), bisacodyl (Dulcolax Laxative), bisacodyl, [...] Meds: None Continuous Infusions: None I&O Input/Output RecordInOutBal 03/0224hr Tot 940 0 940 03/0124hr Tot 810 [id number] VS/Measurements Vital Signs (last 24 hrs) Last Charted Minimum Maximum Temp98.9 (JUN 02 04:26)L 96.2 (JUN 01 20:00)98.9 (JUN 02 04:26) Heart RateH 108 (JUN 02 05:00)100 (JUN 01 06:30)H 110 (JUN 02 01:00) Resp Rate 16 (JUN 02 00:00)16 (JUN 01 09:10)20 (JUN 01 20:00) [id number] (JUN 02 05:00)92 (JUN 02 04:00)120 (JUN 02 02:00) DBP77 (JUN 02 05:00)63 (JUN 02 04:00)84 (JUN 01 09:15) General: Mild distress. Eye: [...] review: Labs (Last four charted values) WBC 7.4(JUN 02)7.1(JUN 01)8.0(MAY 31)7.8(MAY 30) Hgb L 13.0(JUN 02)L 12.4(JUN 01)L 13.1(MAY 31)L 12.5(MAY 30) Hct L 38.3(JUN 02)L 38.2(JUN 01)L 39.6(MAY 31)L 37.2(MAY 30) Plt 254(JUN 02)209(JUN 01)196(MAY 31)183(MAY 30) Na L 134(JUN 02)136(JUN 01)L 134(MAY 31)137(MAY 30) K 4.0(JUN 02)4.1(JUN 01)4.2(MAY 31)4.1(MAY 30) CO2 25(JUN 02)26(JUN 01)24(MAY 31)24(MAY 30) Cl 104(JUN 02)103(JUN 01)100(MAY 31)103(MAY 30) Cr 0.9(JUN 02)0.9(JUN 01)1.0(MAY 31)0.9(MAY 30) BUN 16(JUN 02)17(JUN 01)18(MAY 31)16(MAY 30) Glucose Random H 100(JUN 02)91(JUN 01)89(MAY 31)H 103(MAY 30) Mg 1.8(JUN 02)1.9(JUN 01)2.0(MAY 31)2.2(MAY 30) Phos 4.1(JUN 02)4.4(JUN 01)3.6(MAY 31)4.2(MAY 30) Ca 8.7(JUN 02)8.6(JUN 01)L 8.4(MAY 31)L 8.4(MAY 30) PT 14.5(JUN 02)H 15.0(MAY 29)14.3(MAY 28)H 15.0(MAY 23) INR 1.12(JUN 02)1.17(MAY 29)1.10(MAY 28)1.17(MAY 23) PTT 32.6(JUN 02)32.6(MAY 29)32.8(MAY 28)32.2(MAY 23) Troponin 0.03(MAY 19)0.03(MAY 18) CK MB 1.7(MAY 19) Total CK 134(MAY 19)136(MAY 18). Impression and Plan 59 year old White man with PMH of Hypothyroidism, HTN, HLD, Moderate CAMMIE, Non-Hodgkin Lymphoma s/p chemotherapy in 1984 and 1986, and Chemoradiation in 1990, CAD ( based on coronary angiogram in 2011 that was mainly non-obstructive but a repeat [...] prox LAD and 50% prox Lcx. LVEDP - - RHC showed PA pressure of 56/34 [...] although seems unlikely at this time Addendum ATTENDING ATTESTATION by Cheng, I have seen and examined the patient with the resident. I agree with the assessment and Kat EDWARD plan as outlined in the note above with the following additions/modifications: on -- Doing well post MitraClip 06/02/2014 -- BP maintained on low dose metoprolol 10:47 -- Non-sustained VT seen last night. Will start amio. -- Will need LifeVest on account of the low EF. -- Echo reviewed by me. KAT ANAND MD Interventional Cardiology Extracted from: Title: Cardiology History and Author: Home Gillette MD Date: 05/18/14 Physical History and Physical Chief Complaint SOB on [...] cardiomyopathy ( EF of 40-45 % in 2011) who is presenting with increased SOB on exertion, orthopnea, cough and lower extremity edema for the past 2 weeks that started relatively suddenly. He is on lasix 20 mg QD but increased Regarding his heart disease, he recieved 2 cycles of chemotherapy in [facility] in and and when his lymphoma relapsed [...] (-) depression (-)insomnia Physical Exam Vital Signs VitalsTmp(F)Tmp(C)TedjnPUSFFXupuzAMYrA6QFK8BJGW7 05/18 20:00 109/[id number]------ 05/18 17:08 110/82---[id number]------ 05/18 16:1897.836.96leva839/78---9099990------ 24 Hr Tmax: 97.8F (36.56c) at 05/18 16:18Vital Signs are the last 5 in the past 48 hours. 24 Hr Tmin: 97.8F (36.56c) at 05/18 16:18Weights are the last 5 in 60 days, plus initial. DateWt(kg)Wt(lb)Ht(cm)Ht(in)MethodBMIBSA 05/18 (initial)100.00 220.00Estimated 29.92.25 63431.88 72.00Stated P/E Gen - NAD, A&O x 3 [...] no DVT Labs 24hr Labs 05/18 1752 KWO608 H PT14.0 INR1.08 PTT30.9 05/18 1726 Sodium Bxp418 Potassium Lvl3.7 Chloride Mnl460 CO226 AGAP15.7 Glucose Czb214 H Creatinine Lvl1.1 BUN20 B/C Ratio18 Total Protein7.0 Albumin Lvl3.8 Globulin3.2 A/G Ratio1.2 Calcium Lvl9.0 ALT57 AST29 Alk Phos63 Bili Total1.4 H eGFR72 Total CK136 Troponin-I0.03 WBC8.7 RBC5.18 Hgb15.0 Hct47.2 MCV91.1 MCH28.9 MCHC31.7 L RDW13.3 Mjsyfqyr071 MPV7.8 Segs76.6 H Qlbwtomre12.1 Qlpmpxxesvc34.7 L Eosinophils1.6 Basophils0.0 Segs-Bands #6.7 Lymphocytes #1.0 Monocytes #0.9 H Eosinophils #0.1 Basophils #0.0 RBC MorphNormal Plt MorphNormal Radiology CHEST 2 VIEWS DATE: May 18, 2014 05:50:00 PM INDICATION: Chest pain COMPARISON: Chest 2 views 05/04/2014. TECHNIQUE: PA and lateral radiographs of the chest were obtained. FINDINGS: Small right pleural effusion. Mild central vascular congestion. No focal consolidation or pneumothorax. Unchanged cardiomediastinal silhouette. IMPRESSION: Small right pleural effusion and mild central vascular congestion. Procedures Angiogram in 2012 : LV gram showed mild global hypokinesis [...] try to get the Echo results from [place] ( had one done today), if unable will do an Echo tomorrow to evaluate Cardiac and Valvular function -- TSH, UDS, A1c and Lipid panel. -- If EF is reduced, will need ischemic workup probably in the form of outpatient stress test with imaging to look for reversible ischemia.
--- OUTSIDE RECORDS SUMMARY | 2018-10-31 06:04 | XMS REPORT ---
Author [facility] Address Unknown Phone Unavailable Care Team Providers Care Junior Linux Administrator Name Role Phone Marcellus WARNER Unavailable Unavailable Problems This patient has no known problems. Allergies, Adverse Reactions, Alerts This patient has no known allergies or adverse reactions. Medications This patient has no known medications. Results Test Description Test Time Test Comments Text Results Atomic Results Result Comments CHEST 2 VIEWS 2018-10-15 12:18:00 [place] [address] Patient Name: FOUZIA GOLDEN MR #: [id number] : 1955 Age/Sex: 63/M Req #: [id number] Adm Physician: Ordered by: SOO WARNER MD Report #: [id number] Location: OR Room/Bed: Procedure: [id number] DX/CHEST 2 VIEWS Exam Date: 10/15/18 Exam Time: 1130 REPORT STATUS: Signed EXAMINATION: CHEST 2 VIEWS INDICATION: Pre-operative COMPARISON: None FINDINGS: TUBES and LINES: Metallic surgical clips overlie the heart. LUNGS: The lungs are mildly hyperinflated. No focal consolidation or pulmonary edema. PLEURA: No pleural effusion or pneumothorax. HEART AND MEDIASTINUM: The cardiomediastinal silhouette is normal in size and contour. BONES AND SOFT TISSUES: No acute fracture or dislocation. Mild degenerative changes of the visualized spine. UPPER ABDOMEN: No free air under the diaphragm. IMPRESSION: No focal pneumonia or pulmonary edema. Signed by: Janice Valero MD on 10/15/2018 12:22 PM Dictated By: JANICE VALERO MD [id number] Transcribed By: JUAN ALBERTO on 10/15/18 1222 COPY TO: SOO WARNER MD
--- OUTSIDE RECORDS SUMMARY | 2018-10-31 06:04 | XMS REPORT | Summary of Care ---
Author Organization Unknown Address Unknown Phone Unavailable Encounter HQ Ian(BRAYAN) [id number] Date(s): 09/02/14 - 10/01/14 [facility] [address] [place] [address]- Discharge Disposition: Home Physician Attending: Jose Adler MD Physician_Referring: Jose Adler MD Vital Signs Most recent to 1 oldest [Reference Range]: Height 182.88 cm (09/02/14 3:05 PM) Weight 97.273 kg (09/02/14 3:05 PM) Body Mass Index 29.08 m2 (09/02/14 3:05 PM) Problem List Condition Effective Dates Status [...]
[2018-10-31 12:30] VITALS: BP 112/74
--- NOTE | 2018-10-31 18:10 | Operative Report ---
DATE OF PROCEDURE: 10/31/2018 SURGEON: Suleman Desai MD PREOPERATIVE DIAGNOSIS: Right inguinal hernia. POSTOPERATIVE DIAGNOSIS: Right inguinal hernia. OPERATION PERFORMED: Repair of right inguinal scrotal hernia with extended Prolene hernia system. FX ARTIST: JAYNE Christian. ANESTHESIA: General. COMPLICATIONS: None. ESTIMATED BLOOD LOSS: Minimal. DESCRIPTION OF PROCEDURE: With the patient lying in bed in the supine position under good general anesthesia, the abdomen was prepped with Betadine solution and draped in the usual manner. A right inguinal incision was made. It was carried down through the subcutaneous tissue down to the external oblique aponeurosis. External oblique was opened along the length of its fibers and the external inguinal ring was opened. The cord was then mobilized and retracted, contained within the cord with a large hernia sac that extended all the way up to the scrotum. The hernia sac was then from the cord structures. There was a lipoma of the cord as well, which was ligated with 2-0 Vicryl and divided. The hernia sac was all the way down to the neck. The hernia sac was then opened and all the contents were reduced back to the intraabdominal cavity and the hernia sac was then closed with a pursestring suture of 0-Ethibond and Ethibond tie. The excess was resected and sent for examination. The preperitoneal space was then entered right through the internal ring and a pocket was created without any difficulty. An extended Prolene hernia system was placed in the preperitoneal space and the underlay patch was deployed without any problems. The overlay patch was then placed over the floor and splitted inferolaterally to allow for passage of the cord. The mesh was then sutured to the conjoined tendon and the inguinal ligament using interrupted sutures of 2-0 Vicryl. The subcutaneous tissue was approximated with 3-0 plain and the skin was closed with clips. All layers were infiltrated on the way out with solution of 0.25% Marcaine and 1% Xylocaine mixed in equal parts. The dressing was applied. The sponge, lap, and needle count was correct. The patient tolerated the procedure well and returned to the recovery room in stable condition. MD ELI Anguiano/MODL /[id number]
== END | disposition home or self-care (01) ==
LOC: OR 05:57
PROVIDERS: ATTEND Surgery
DX: K40.90 Unilateral inguinal hernia, without obstruction or gangrene, not specified as recurrent (principal); D17.6 Benign lipomatous neoplasm of spermatic cord; I10 Essential (primary) hypertension; Z01.810 Encounter for preprocedural cardiovascular examination; Z01.812 Encounter for preprocedural laboratory examination; Z01.818 Encounter for other preprocedural examination; Z87.891 Personal history of nicotine dependence
CPT/HCPCS: 36415; 49505; 71046; 80048; 85025; 88302; 93005; C1781; J0131; J1100; J1170; J1885; J2001 ×2; J2250; J2405; J2704; J3010; J3490

== ENCOUNTER 2022-09-14 11:12 | Emergency (ER) | payer OTHER, MEDICARE ==
[~2022-09-14] VITALS: Ht 185.4 cm; Wt 108.9 kg
[~2022-09-14 11:12] MED LIST changes: -ACETAMINOPHEN 1000 MG/100 ML IV ONE; -BUPIVACAINE 0.25%/EPI 30ML SDV INJ ONE; -DESFLURANE 240 ML BTL INH ONE; -DEXAMETHASONE SOD PHOS INJ 4 MG/ML VIAL ONE; -EPHEDRINE SULFATE INJ 50 MG/10 ML SYR ONE; -ETOMIDATE 2 MG/ML 10 ML INJ IV ONE; -FENTANYL CITRATE/PF 100MCG/2 ML INJ ONE; -GLYCOPYRROLATE INJ 1MG/ 5 ML SYR ONE; -HYDROMORPHONE 1MG/1ML INJ ONE; -KETOROLAC TROMETHAMINE 30 MG/ML VIAL ONE; -LIDOCAINE HCL 1% LOCAL INJ 20 ML VIAL ONE; -LIDOCAINE HCL 2% LOCAL INJ 5 ML SDV VIAL INJ ONE; -MIDAZOLAM HCL 2 MG/2 ML VIAL ONE; -NEOSTIGMINE 5 MG/5ML SYR ONE; -ONDANSETRON HCL INJ 2MG/ML 2ML 2 MG/ML VIAL ONE; -PROPOFOL IV EMULSION 10 MG/ML 20 ML VIAL ONE; -ROCURONIUM BROMIDE 10 MG/ML 5ML VIAL ONE
[2022-09-14] MEDS ORDERED: DEXAMETHASONE SOD PHOS 10 MG/1 ML VIAL IM ONE (11:45)
[2022-09-14] MEDS ORDERED: NAPROXEN 250 MG TAB PO ONE (11:45)
[2022-09-14] MEDS ORDERED: METHOCARBAMOL 500 MG TAB PO ONE (12:00)
[2022-09-14] MEDS ORDERED: METHOCARBAMOL750 MG PO (13:42)
[2022-09-14] MEDS ORDERED: PREDNISONE20 MG PO (13:42)
[2022-09-14] MEDS ORDERED: NAPROSYN500 MG PO (13:42)
[2022-09-14] MEDS ORDERED: HYDROCODONE/APAP 10MG-325MG TAB PO ONE (13:45)
[2022-09-14 15:40] VITALS: O2SAT 100
== END 2022-09-14 15:30 | disposition home or self-care (01) ==
LOC: ER 11:18
DX: M54.42 Lumbago with sciatica, left side (principal)
CPT/HCPCS: 72100; 99284; J1100